=== PATIENT | male | born 1935 | race Caucasian/White ===

== ENCOUNTER → 2018-01-05 08:09 | Outpatient (CLI) | payer MEDICARE, OTHER, SELFPAY ==
[2018-01-05 10:26] LABS: AST(SGOT) 23 U/L (15-37); Alanine Aminotransfer ALT/SGPT 29 U/L (16-61); Albumin, Serum 3.7 g/dL (3.2-5.0); Alkaline Phosphatase 40 U/L (45-117); Bilirubin, Direct 0.13 mg/dL (0.00-0.30); Cholesterol 150 mg/dL (200); Globulin 3.8 g/dL (2.2-4.2); High Density Lipoprotein 47 mg/dL; Protein, Total 7.5 g/dL (6.4-8.2); Triglycerides 276 mg/dL; Very Low Density Lipoprotein 55 mg/dL (5-40)
== END ==
PROVIDERS: Family Provider Family Medicine; PCP Family Medicine; Visit Provider Physician Assistant Medical
DX: E78.5 Hyperlipidemia, unspecified (principal); Z79.899 Other long term (current) drug therapy
CPT/HCPCS: 36415; 80061; 80076

== ENCOUNTER → 2018-03-24 08:00 | Outpatient (CLI) | payer MEDICARE, OTHER, SELFPAY ==
[2018-03-24 09:55] LABS: AST(SGOT) 25 U/L (15-37); Alanine Aminotransfer ALT/SGPT 32 U/L (16-61); Albumin, Serum 3.8 g/dL (3.2-5.0); Alkaline Phosphatase 43 U/L (45-117); Bilirubin, Direct 0.15 mg/dL (0.00-0.30); Cholesterol 147 mg/dL (200); Globulin 3.9 g/dL (2.2-4.2); High Density Lipoprotein 43 mg/dL; Protein, Total 7.7 g/dL (6.4-8.2); Triglycerides 275 mg/dL; Very Low Density Lipoprotein 55 mg/dL (5-40)
== END ==
PROVIDERS: Physician Assistant Medical; Family Provider Family Medicine; PCP Family Medicine; Visit Provider Internal Medicine Cardiovascular Disease
DX: E78.5 Hyperlipidemia, unspecified (principal)
CPT/HCPCS: 36415; 80061; 80076

== ENCOUNTER → 2018-03-30 08:17 | Outpatient (CLI) | payer MEDICARE, OTHER, SELFPAY ==
--- NOTE | 2018-03-30 08:19 | RAD_ITS ---
PROCEDURE: Fluoroscopic guided Hip Injection DATE: March 30, 2018. INDICATION: Male, 82 years old. Chronic right hip pain. PHYSICIAN: Stanley Erickson M.D. MEDICATIONS: 40 mg of Kenalog and 4 cc of 1% lidocaine. 2% Lidocaine administered subcutaneously for local anesthesia. ACCESS SITE: Right hip. NEEDLE: 22-gauge spinal needle. FLUOROSCOPY TIME (if supplied): (0:33) minutes/seconds FINDINGS: The risks, benefits, and alternatives to the procedure were explained to the patient. The specific risks of bleeding, infection, and neurovascular injury were detailed and accepted. Witnessed informed consent was obtained. A 22-gauge spinal needle was positioned under radiographic fluoroscopic localization. Approximately 2 cc of Isovue-300 instilled for localization purposes. Medication was then injected. The patient tolerated the procedure well without any immediate complications. The patient was placed supine with head elevated and returned to the floor in stable condition. RAD/Inj/Asp [place] Jt Should/Hip/Knee IMPRESSION: 1. Successful fluoroscopic guided hip injection. Electronically Signed: Stanley Erickson MD at 9:50 EDT Tel [phone], Service support ,
== END ==
PROVIDERS: Family Provider Family Medicine; PCP Family Medicine; Visit Provider Orthopaedic Surgery
DX: M16.10 Unilateral primary osteoarthritis, unspecified hip (principal)
CPT/HCPCS: 20610; 77002; Q9967

== ENCOUNTER → 2018-09-20 08:07 | Outpatient (CLI) | payer MEDICARE, OTHER, SELFPAY ==
[2018-03-26 10:09] VITALS: BMI 34.1
[2018-09-20 09:34] LABS: AST(SGOT) 22 U/L (15-37); Alanine Aminotransfer ALT/SGPT 28 U/L (16-61); Albumin, Serum 3.5 g/dL (3.2-5.0); Alkaline Phosphatase 45 U/L (45-117); Bilirubin, Direct 0.13 mg/dL (0.00-0.30); Cholesterol 145 mg/dL (200); Globulin 3.8 g/dL (2.2-4.2); High Density Lipoprotein 44 mg/dL; Protein, Total 7.3 g/dL (6.4-8.2); Triglycerides 258 mg/dL; Very Low Density Lipoprotein 52 mg/dL (5-40)
--- OUTSIDE RECORDS SUMMARY | 2018-12-22 19:01 | XMS RPT_ITS ---
:1935 Author Organization [place] Support Name Relationship Address Phone JACKSON RAMSES Unavailable [address] + [place] [address] KALANI TUCKER Un[address] + [place] [address] S Unavailable Unavailable Unavailable RAMSES PAZ Unavailable [address] + [place] [address] KALANI TUCKER Un[address] + [place] [address] S Unavailable Unavailable Unavailable RAMSES PAZ Unavailable [address] + [place] [address] R Unavailable Unavailable Unavailable R Unavailable Unavailable Unavailable RAMSES PAZ Unavailable [address] + [place] [address] R Unavailable Unavailable Unavailable R Unavailable Unavailable Unavailable RAMSES PAZ Unavailable [address] + [place] [address] GARRETT BASHIR Unavailable [address] + [place] [address] R Unavailable Unavailable Unavailable RAMSES PAZ Unavailable [address] + [place] [address] GARRETT BASHIR Unavailable [address] + [place] [address] R Unavailable Unavailable Unavailable RAMSES PAZ Unavailable [address] + [place] [address] GARRETT BASHIR Unavailable [address] + [place] [address] R Unavailable Unavailable Unavailable RAMSES PAZ Unavailable [address] + [place] [address] GARRETT BASHIR Unavailable [address] + [place] [address] R Unavailable Unavailable Unavailable Care Team Providers Name Role Phone Evan PEARSON (PA-C) Attending Unavailable PEARSON, Evan WRIGHT (PA-C) Referring Unavailable PEARSON, Evan WRIGHT (PA-C) Attending Unavailable PEARSON, Evan WRIGHT (PA-C) Referring Unavailable PEARSON, Evan WRIGHT (PA-C) Attending Unavailable PEARSON, Evan WRIGHT (PA-C) Referring Unavailable PEARSON, Evan WRIGHT (PA-C) Referring Unavailable DELON, JUANCARLOS Attending Unavailable PEARSON, Evan WRIGHT (PA-C) Referring Unavailable PEARSON, Evan WRIGHT (PA-C) Attending Unavailable PEARSON, Evan WRIGHT (PA-C) Referring Unavailable KALEE GILES (PT) Attending Unavailable PEARSON, Evan WRIGHT (PA-C) Referring Unavailable DELON, JUANCARLOS Attending Unavailable PEARSON, Evan WRIGHT (PA-C) Referring Unavailable PEARSON, Evan WRIGHT (PA-C) Attending Unavailable CEBUL III, ABDOULAYE A Attending Unavailable HEATHER ZABALA (PT) Attending Unavailable CEBUL III, ABDOULAYE A Referring Unavailable CEBUL III, ABDOULAYE A Attending Unavailable CEBUL III, ABDOULAYE A Referring Unavailable CEBUL III, ABDOULAYE A Referring Unavailable JAMILA KENNEDY (EDGE KITTER) Attending Unavailable Gregoria Guerrero Attending Unavailable Gregoria Guerrero Referring Unavailable Cebul III, Abdoulaye Primary Care Unavailable Nadia, [place] Attending Unavailable Cebul III, Abdoulaye Referring Unavailable Cebul III, Abdoulaye Primary Care Unavailable Noel Pompa Attending Unavailable Noel Pompa Referring Unavailable Cebul III, Abdoulaye Primary Care Unavailable Apple Stout Attending Unavailable Apple Stout Attending Unavailable Nadia, Jadon Attending Unavailable Naida, Jadon Referring Unavailable Cebul III, Abdoulaye Primary Care Unavailable Gregoria Guerrero Attending Unavailable Gregoria Guerrero Referring Unavailable Cebul III, Abdoulaye Primary Care Unavailable Nilam Patricio Attending Unavailable Cebul III, Abdoulaye Referring Unavailable PROBLEMS PROBLEMS DATE TYPE CONDITION / CODE ATTENDING STATUS SOURCE 09/24/2018 Active Diarrhea, NA Active [place] unspecified / Clinic Main R19.7(ICD-10) [place] Repository 03/30/2018 Unknown 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 - Unilateral Noel Pompa Active [facility] primary [facility] osteoarthritis, Hospital unspecified hip / Repository M16.10(ICD-10) 03/26/2018 Unknown Z95.1 - Presence of Nadia, [place] Active [place] aortocoronary bypass Community graft / Hospital Z95.1(ICD-10) Repository 03/26/2018 Unknown I10 - Essential Nadia, [place] Active [facility] (primary) Community hypertension / Hospital I10(ICD-10) Repository 03/26/2018 Unknown I25.5 - Ischemic Nadia, [place] Active [facility] cardiomyopathy / Community I25.5(ICD-10) Hospital Repository 03/26/2018 Unknown E78.5 - Nadia, Jadon Active [facility] Hyperlipidemia, Community unspecified / Hospital E78.5(ICD-10) Repository 12/04/2017 Active Unknown / JUANCARLOS ROMAN Active [place] UNK(Unknown) Clinic Main [place] Repository 12/02/2017 Active Pain in right hip / NA Active [place] M25.551(ICD-10) Clinic Main [place] Repository 11/10/2017 Active Pain in right knee / NA Active [place] M25.561(ICD-10) Clinic Main [place] Repository 11/06/2017 Active Pain in right thigh NA Active [place] / M79.651(ICD-10) Clinic Main [place] Repository PROCEDURES PROCEDURES No Procedure Records FoundRESULTS RESULTS PROGRESS Observed: 10/18/2018 Status: COMPLETED Source: [place] 1:07 PM [facility] REPOSITORY HNO ID: [id number] Author: Jamila Olson (Joe) Brent Service: (none) Author Type: Nurse Practitioner Type: Progress Notes Filed: 10/18/2018 5:44 PM Note Text: Patient presents with: Pre-Op Exam: having cataract surgery right eye PRE-OPERATIVE ASSESSMENT ([facility]) Surgeon: Dr. Linda Bernal MD Type of Surgery: Right Cataract Patient Scheduled for Surgery on 10/26/2018. Diagnosis: Right Cataract Patient presents with: Pre-Op Exam: having cataract surgery right eye MEDICATIONS AND ALLERGIES REVIEWED. LATEX ALLERGY: No PATIENT CAN PERFORM THE FOLLOWING: Climb a flight of stairs or walk up a hill (5.50 METs) FUNCTIONAL CLASS ASSIGNMENT: I REVIEW OF SYSTEMS: AREA COORDINATOR: No history of stroke, TIAs, or seizures, or dementia reported., Negative for significant headaches. RESP: Denies dyspnea, chronic cough, asthma, bronchitis, COPD, emphysema, and URI < 2 weeks ago. CARD: Patient denies any dyspnea, recent IN, angina, arrhythmias, or valvular disease,, Denies h/o DVT or PE., + CAD, + HTN and + hyperlipidemia, Follows with Dr. Jadon Zuniga-Air Conditioning Unit Tester. Recent visit within the past month. GI: + H/O Colon Cancer, no radiation. : No history of disease. RENAL: Denies history of renal insufficiency. ENDO: no history of diabetes, no history of thyroid problems, no history of steroid use HEME: patient denies bleeding, bruising easily, no history of anemia and no history of prior transfusion PSYCHIATRIC: denies history of psychiatric illness and denies eating disorders, denies a history of abuse ANESTHESIA COMPLICATIONS: no reported complications Current Outpatient Prescriptions on File Prior to Visit: loratadine (CLARITIN ORAL) Take by mouth as needed. naproxen sodium (ALEVE) 220 mg tablet Take 220 mg by mouth twice daily with meals. aspirin, enteric coated (ASPIRIN, ENTERIC COATED) 81 mg EC tablet Take 81 mg by mouth once daily. spironolactone (ALDACTONE) 25 mg tablet Take 1 tablet by mouth once daily. amLODIPine (NORVASC) 10 mg tablet Take 1 tablet by mouth once daily. lisinopril 40 mg tablet Take 1 tablet by mouth once daily. simvastatin (ZOCOR) 20 mg tablet Take 1 tablet by mouth daily at bedtime. meloxicam (MOBIC) 15 mg tablet Take 1 tablet by mouth once daily. 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 [facility] - see scanned documents - Essential hypertension, benign - Heart attack (HCC) - Hemorrhage of rectum and anus - High degree atrioventricular block 02/10/2015 [facility] - see scanned documents - Hx of coronary artery bypass graft - Other abnormal granulation tissue - Other and unspecified hyperlipidemia - Personal history of colonic polyps Colon polyps - 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 [facility] - see scanned documents - Small bowel obstruction (HCC) 02/10/2015 [facility] - see scanned document PAST SURGICAL HISTORY: See Below PAST SURGICAL HISTORY Procedure Laterality Date - CABG (4) VEIN GRAFTS AND ARTERIAL GRAFT(S) 03/2012 [facility] - COLONOSCOP W/ OR W/O [facility] Colonoscopy 2001,2002,2003,2004, - COLONOSCOP W/ OR W/O [facility] 01-18-16 - COLONOSCOPY ABLATION POLYP 01/19/09 Repeat in [id number] mid transverse/granulation tissue rectal anastomosis - HEART SURGERY HX - INSERT CATH,ART,PERCUT,SHORTTERM 02-01-15 - LAP COLECTMY W/ILEUM/ILEOCOL 02-01-15 - LAP, SURG ENTEROLYSIS 02-01-15 - LAP, SURG MOBIL SPLENIC FL DUR PTL COLECTOMY 02-01-15 - PART REMOVAL COLON W ANASTOMOSIS Hemicolectomy - PICC LINE 02/12/2015 [facility] - see scanned documents - REM LESION NEC,HND,SCAL 1.1-2.0CM 11/07/09 Exc. posterior neck len cyst BP 118/66 (BP Site: Left Arm, BP Position: Sitting, BP Cuff Size: Large Adult) Pulse 80 Temp 36.5 ?C (97.7 ?F) (Tympanic) Resp 18 Ht 161.5 cm (5' 3.58) Wt 93.4 kg (206 lb) BMI 35.83 kg/m? PHYSICAL EXAM: GENERAL: Healthy, alert, no distress, cooperative, Obese, Smiling SKIN: Skin color, texture, turgor normal. No rashes or lesions. HEENT: PERRL, EOMI, and normal dentition JVD: No jugulovenous distention, No carotid bruits, Carotid pulse normal contour, Supple CARDIAC: Normal S1 and S2; no rubs, murmurs, or gallops LUNGS: Lungs clear to auscultation, Good diaphragmatic excursion ABDOMEN: Abdomen soft, non-tender, BS normal, No masses or organomegaly EXTREMITIES: Extremities normal, no deformities, edema, clubbing or skin discoloration. Good capillary refill., No ulcers NEURO: Gait normal. . Sensation grossly intact, Cranial nerves II-XII intact PULSES: 2+ radial, 2+ carotid : not examined/not indicated. EKG: Not indicated -- IMPRESSION: Nilam Tucker Jr. is a 83 year old male. History: There is no known pertinent medical condition which may affect titi-operative course Patient has no clinical predictors of increased perioperative cardiovascular risk. Patient is scheduled for a low-risk procedure. Functional Class: I Thank you for allowing me to participate in this patient's care. Chart note to be forwarded to Dr. Linda Bernal ASSESSMENT/PLAN: 1. Pre-operative exam - ICD9: V72.84, ICD10: Z01.818 This patient is optimally prepared for surgery. Jamila Kennedy MSN SURGICAL SERVICES ASST.ASL INTERPRETER CNOV Observed: 10/18/2018 Status: COMPLETED Source: [place] 1:00 PM [facility] REPOSITORY [facility] NILAM TUCKER JR. ([id number]) 1935 M NFR Date Time Provider Department 10/18/18 1:00 PM JAMILA KENNEDY (EDGE KITTER) FAMPWS During your visit today, we recorded the following information about you: Temperature Pulse Respiration Blood pressure 97.7 degrees 80/minute 18/minute 118/66 Weight Height 93.4 kg 1.615 m ANGLE Parmar SURGICAL SERVICES ASST.ASL INTERPRETER 10/18/2018 5:44 PM Signed Patient presents with: Pre-Op Exam: having cataract surgery right eye PRE-OPERATIVE ASSESSMENT ([facility]) Surgeon: Dr. Linda Bernal MD Type of Surgery: Right Cataract Patient Scheduled for Surgery on 10/26/2018. Diagnosis: Right Cataract Patient presents with: Pre-Op Exam: having cataract surgery right eye MEDICATIONS AND ALLERGIES REVIEWED. LATEX ALLERGY: No PATIENT CAN PERFORM THE FOLLOWING: Climb a flight of stairs or walk up a hill (5.50 METs) FUNCTIONAL CLASS ASSIGNMENT: I REVIEW OF SYSTEMS: AREA COORDINATOR: No history of stroke, TIAs, or seizures, or dementia reported., Negative for significant headaches. RESP: Denies dyspnea, chronic cough, asthma, bronchitis, COPD, emphysema, and URI < 2 weeks ago. CARD: Patient denies any dyspnea, recent IN, angina, arrhythmias, or valvular disease,, Denies h/o DVT or PE., + CAD, + HTN and + hyperlipidemia, Follows with Dr. Jadon Zuniga-Air Conditioning Unit Tester. Recent visit within the past month. GI: + H/O Colon Cancer, no radiation. : No history of disease. RENAL: Denies history of renal insufficiency. ENDO: no history of diabetes, no history of thyroid problems, no history of steroid use HEME: patient denies bleeding, bruising easily, no history of anemia and no history of prior transfusion PSYCHIATRIC: denies history of psychiatric illness and denies eating disorders, denies a history of abuse ANESTHESIA COMPLICATIONS: no reported complications Current Outpatient Prescriptions on File Prior to Visit: loratadine (CLARITIN ORAL) Take by mouth as needed. naproxen sodium (ALEVE) 220 mg tablet Take 220 mg by mouth twice daily with meals. aspirin, enteric coated (ASPIRIN, ENTERIC COATED) 81 mg EC tablet Take 81 mg by mouth once daily. spironolactone (ALDACTONE) 25 mg tablet Take 1 tablet by mouth once daily. amLODIPine (NORVASC) 10 mg tablet Take 1 tablet by mouth once daily. lisinopril 40 mg tablet Take 1 tablet by mouth once daily. simvastatin (ZOCOR) 20 mg tablet Take 1 tablet by mouth daily at bedtime. meloxicam (MOBIC) 15 mg tablet Take 1 tablet by mouth once daily. 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 [facility] - see scanned documents - Essential hypertension, benign - Heart attack (HCC) - Hemorrhage of rectum and anus - High degree atrioventricular block 02/10/2015 [facility] - see scanned documents - Hx of coronary artery bypass graft - Other abnormal granulation tissue - Other and unspecified hyperlipidemia - Personal history of colonic polyps Colon polyps - 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 [facility] - see scanned documents - Small bowel obstruction (HCC) 02/10/2015 [facility] - see scanned document PAST SURGICAL HISTORY: See Below PAST SURGICAL HISTORY Procedure Laterality Date - CABG (4) VEIN GRAFTS AND ARTERIAL GRAFT(S) 03/2012 [facility] - COLONOSCOP W/ OR W/O [facility] Colonoscopy 2001,2002,2003,2004, - COLONOSCOP W/ OR W/O [facility] 01-18-16 - COLONOSCOPY ABLATION POLYP 01/19/09 Repeat in [id number] mid transverse/granulation tissue rectal anastomosis - HEART SURGERY HX - INSERT CATH,ART,PERCUT,SHORTTERM 02-01-15 - LAP COLECTMY W/ILEUM/ILEOCOL 02-01-15 - LAP, SURG ENTEROLYSIS 02-01-15 - LAP, SURG MOBIL SPLENIC FL DUR PTL COLECTOMY 02-01-15 - PART REMOVAL COLON W ANASTOMOSIS Hemicolectomy - PICC LINE 02/12/2015 [facility] - see scanned documents - REM LESION NEC,HND,SCAL 1.1-2.0CM 11/07/09 Exc. posterior neck len cyst BP 118/66 (BP Site: Left Arm, BP Position: Sitting, BP Cuff Size: Large Adult) Pulse 80 Temp 36.5 ?C (97.7 ?F) (Tympanic) Resp 18 Ht 161.5 cm (5' 3.58) Wt 93.4 kg (206 lb) BMI 35.83 kg/m? PHYSICAL EXAM: GENERAL: Healthy, alert, no distress, cooperative, Obese, Smiling SKIN: Skin color, texture, turgor normal. No rashes or lesions. HEENT: PERRL, EOMI, and normal dentition JVD: No jugulovenous distention, No carotid bruits, Carotid pulse normal contour, Supple CARDIAC: Normal S1 and S2; no rubs, murmurs, or gallops LUNGS: Lungs clear to auscultation, Good diaphragmatic excursion ABDOMEN: Abdomen soft, non-tender, BS normal, No masses or organomegaly EXTREMITIES: Extremities normal, no deformities, edema, clubbing or skin discoloration. Good capillary refill., No ulcers NEURO: Gait normal. . Sensation grossly intact, Cranial nerves II-XII intact PULSES: 2+ radial, 2+ carotid : not examined/not indicated. EKG: Not indicated IMPRESSION: Nilam Tucker Jr. is a 83 year old male. History: There is no known pertinent medical condition which may affect titi-operative course Patient has no clinical predictors of increased perioperative cardiovascular risk. Patient is scheduled for a low-risk procedure. Functional Class: I Thank you for allowing me to participate in this patient's care. Chart note to be forwarded to Dr. Linda Bernal ASSESSMENT/PLAN: 1. Pre-operative exam - ICD9: V72.84, ICD10: Z01.818 This patient is optimally prepared for surgery. Jamila Kennedy, MSN SURGICAL SERVICES ASST.ASL INTERPRETER Referring Provider: SELF [200] Allergies As of Date: 10/18/2018 Noted Allergy Reaction AMOXICILLIN 03/13/2006 Comments: hives HYDROCHLOROTHIAZIDE 12/01/2014 14 - Other: See Comments Comments: hypokalemia OMEPRAZOLE 06/30/2012 4 - Hives PENICILLINS 03/13/2006 Comments: unknown SULFA (SULFONAMIDE ANTIBIOTICS) 03/13/2006 Comments: unknown ZETIA (EZETIMIBE) 03/13/2006 Comments: muscle pain Date Reviewed: 10/18/2018 Reviewed by: Shirley Barr LPN - Fully Assessed Reason for Visit: Pre-Op Exam [87] Cmt: having cataract surgery right eye Primary Visit Diagnosis:Pre-operative exam [Z01.818] Order(s):metoprolol tartrate, short acting, (LOPRESSOR) 100 mg tabletTake 0.5 tablets by mouth twice daily.Disp: 60 tabletRfl: 5 Prescriptions as of 10/18/2018 Sig: METOPROLOL TARTRATE 100 MG TA* Take 0.5 tablets by mouth twi* CLARITIN ORAL Take by mouth as needed. NAPROXEN SODIUM 220 MG TABLET Take 220 mg by mouth twice da* ASPIRIN 81 MG TABLET,DELAYED * Take 81 mg by mouth once celeste* SPIRONOLACTONE 25 MG TABLET Take 1 tablet by mouth once d* AMLODIPINE 10 MG TABLET Take 1 tablet by mouth once d* LISINOPRIL 40 MG TABLET Take 1 tablet by mouth once d* SIMVASTATIN 20 MG TABLET Take 1 tablet by mouth daily * MELOXICAM 15 MG TABLET Take 1 tablet by mouth once d* Problem List As Of Date 10/18/2018 Noted Resolved HYPOPOTASSEMIA [E87.6] INVALID FOR* BENIGN HYPERTENSION [I10] Thoracic or lumbosacral neuritis or radiculitis*INVALID FOR*08/12/2018 Variants of migraine, not elsewhere classified,*INVALID FOR*08/12/2018 SPINAL STENOSIS-LUMBAR [M48.061] INVALID FOR* RECTAL BLEEDING (MELENA-578.1) [K62.5] INVALID FOR*08/12/2018 Sebaceous cyst [L72.3] INVALID FOR*08/12/2018 ASHD (arteriosclerotic heart disease) [I25.10] INVALID FOR* BPH associated with nocturia [N40.1, R35.1] INVALID FOR* History of adenomatous polyp of colon [Z86.010] INVALID FOR* Hypokalemia [E87.6] INVALID FOR*12/01/2014 Colon cancer (HCC) [C18.9] INVALID FOR* Hemorrhoids, internal, with bleeding [K64.8] INVALID FOR*08/12/2018 Adductor tendonitis [M65.80] INVALID FOR*08/12/2018 Right leg pain [M79.604] INVALID FOR*08/12/2018 Piriformis syndrome, left [G57.02] INVALID FOR* Left sided sciatica [M54.32] INVALID FOR* Cardiomyopathy, ischemic [I25.5] INVALID FOR* Prescriptions ordered this encounter Disp Refills Start End METOPROLOL TARTRATE 100 MG TABLET 60 t* 5 10/18/2018 Class: Med Update Route: ORAL Sig: Take 0.5 tablets by mouth twice daily. Medications Discontinued During This Encounter loperamide (IMODIUM A-D) 2 mg cap(s) 09/02/2018 10/18/2018 Class: OTC Route: ORAL Sig: Take 1 capsule by mouth twice daily as needed for Diarrhea. Disc: Discontinued by Patient gabapentin (NEURONTIN) 100 mg capsule 90 c* 1 08/12/2018 10/18/2018 Route: ORAL Sig: Take 1 capsule by mouth three times daily as needed (nerve pain) for up to 30 days. Disc: Course of therapy completed metoprolol tartrate, short acting, (* 60 t* 5 02/28/2014 10/18/2018 Route: ORAL Sig: Take 1 tablet by mouth twice daily. Disc: Adjust Sig - Block E-Cancel Encounter Status:Closed by JAMILA KENNEDY ASL INTERPRETER on 10/18/18 PROGRESS Observed: 10/02/2018 Status: COMPLETED Source: [place] 3:35 PM [facility] REPOSITORY HNO ID: [id number] Author: Abdoulaye Jain III Service: (none) Author Type: Physician Type: Progress Notes Filed: 10/02/2018 3:35 PM Note Text: Good news-there is no evidence of blood in the stool sample. May recheck in 1 year. Abdoulaye Jain III MD FECAL OCCULT BLD Collected: 09/24/2018 Status: F Source: [facility] 9:00 AM [facility] REPOSITORY TYPE CODE TESTS RESULT OUT OF REFERENCE UNITS RANGE LAB IFO Negative Immuno Negative FOB Result Comment: This test was developed and its performance characteristics determined by [facility]'s [place] [place] ([facility]). It has not been cleared or approved by the FDA. -[facility] is regulated under CLIA as qualified to perform high-complexity testing. This test is used for clinical purposes. It should not be regarded as investigational or for research. Performed By: #### IFOBT #### [facility] [address] [address] LIVER PROFILE Collected: 09/20/2018 Status: F Source: [place] 8:19 AM [facility] REPOSITORY TYPE CODE TESTS RESULT OUT OF RANGE REFERENCE UNITS LAB L501.1500 6.4-8.2 g/dL Normal T PROT 7.3 LAB L501.1800 3.2-5.0 g/dL Normal ALB 3.5 LAB L501.1950 2.2-4.2 g/dL Normal GLOB 3.8 LAB L501.4100 15-37 U/L Normal AST 22 LAB L501.4305 45-117 U/L Normal ALK P 45 LAB L501.4405 16-61 U/L Normal ALT 28 LAB L501.4600 0.20-1.00 mg/dL Normal T BILI 0.50 LAB L501.4700 0.00-0.30 mg/dL Normal D BILI 0.13 Performed By: #### L500.3400, L500.4100 #### [place] [facility] [address] [place], [address] LIPID PROFILE Collected: 09/20/2018 Status: F Source: [place] 8:19 AM [facility] REPOSITORY TYPE CODE TESTS RESULT OUT OF RANGE REFERENCE UNITS LAB L501.4900 200 mg/dL Normal CHOL 145 Result Comment: <200 mg/dL Desirable 200-240 mg/dL Borderline >240 mg/dL High Risk LAB L501.5000 mg/dL High TRIG 258 Result Comment: The drugs N-Acetylcysteine and Metamizole may falsely depress this assay. Serum Triglycerides Reference Interval Normal <150 mg/dL Borderline high 150 - 199 mg/dL High 200 - 499 mg/dL Very High > or = 500 mg/dL LAB L501.6400 mg/dL Normal HDL 44 Result Comment: The drugs N-Acetylcysteine and Metamizole may falsely depress this assay. Reference Range HDL <40 mg/dL Low HDL Cholesterol HDL >or= 60 mg/dL High HDL Cholesterol LAB L501.6500 0-130 mg/dL Normal LDL 49 LAB L501.6600 5-40 mg/dL High VLDL 52 Performed By: #### L500.3400, L500.4100 #### [facility] [address] [place], [address] PROGRESS Observed: 09/02/2018 Status: COMPLETED Source: [place] 3:08 PM [facility] REPOSITORY HNO ID: [id number] Author: Abdoulaye Jain III Service: (none) Author Type: Physician Type: Progress Notes Filed: 09/02/2018 6:43 PM Note Text: SUBJECTIVE: This is a 83 year old male that is here today for f/u of low back pain with L sciatica. The intense pain resolved 7 days ago. Now has low intensity pain LLE. Started PT 09/01. Able to walk back to office today w/o pain. 2. for past mo. he has had liquid diarrhea every day. No fever, chills, change in diet or appetite. No sick exposure. 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 [facility] - see scanned documents - Essential hypertension, benign - Heart attack (HCC) - Hemorrhage of rectum and anus - High degree atrioventricular block 02/10/2015 [facility] - see scanned documents - Hx of coronary artery bypass graft - Other abnormal granulation tissue - Other and unspecified hyperlipidemia - Personal history of colonic polyps Colon polyps - 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 loratadine (CLARITIN ORAL) Take by mouth as needed. meloxicam (MOBIC) 15 mg tablet Take 1 tablet by mouth once daily. naproxen sodium (ALEVE) 220 mg tablet Take 220 mg by mouth twice daily with meals. aspirin, enteric coated (ASPIRIN, ENTERIC COATED) 81 mg EC tablet Take 81 mg by mouth once daily. spironolactone (ALDACTONE) 25 mg tablet Take 1 tablet by mouth once daily. metoprolol tartrate, short acting, (LOPRESSOR) 100 mg tablet Take 1 tablet by mouth twice daily. amLODIPine (NORVASC) 10 mg tablet Take 1 tablet by mouth once daily. lisinopril 40 mg tablet Take 1 tablet by mouth once daily. simvastatin (ZOCOR) 20 mg tablet Take 1 tablet by mouth daily at bedtime. No current facility-administered medications on file prior to visit. FAMILY HISTORY Problem Relation Age of Onset - Coronary Artery Disease Father with [place] - Prostate Cancer Brother - Coronary Artery Disease Brother - Heart Sister heart valve replacement - Thyroid Sister - Thyroid Sister - Thyroid Sister - None Sister - None Sister - None Sister Social History Substance Use Topics - Smoking status: Never Smoker - Smokeless tobacco: Never Used - Alcohol use No BP 122/66 Pulse 75 Resp 16 Ht 163.8 cm (5' 4.5) Wt 93.9 kg (207 lb) BMI 34.98 kg/m? . OBJECTIVE: APPEARANCE Well appearing, alert, in no acute distress, well-hydrated, well nourished. and able to stand straight w/o pain. BACK: hyperextension w/o pain. L piriformis stretch does not cause pain. L SLR neg. ASSESSMENT: L sciatica with L piriformis syndrome--much improved diarrhea following partial colectomy hx of colon cancer transverse colon PLAN: continue home exercise take the gabapentin 100mg three times/day as needed for pain same other medications return to office as needed stool test for colon cancer screening immodium twice/day as needed for loose stool FCO Atkinson MD, III MD CNOV Observed: 09/02/2018 Status: COMPLETED Source: [place] 2:40 PM [facility] REPOSITORY Office Visit (FAMPWS) NILAM TUCKER JR. ([id number]) 1935 M NFR Date Time Provider Department 09/02/18 2:40 PM ABDOULAYE JAIN IIIWS During your visit today, we recorded the following information about you: Pulse Respiration Blood pressure Weight 75/minute 16/minute 122/66 93.9 kg Height 1.638 m Abdoulaye Jian III MD 09/02/2018 6:43 PM Signed SUBJECTIVE: This is a 83 year old male that is here today for f/u of low back pain with L sciatica. The intense pain resolved 7 days ago. Now has low intensity pain LLE. Started PT 09/01. Able to walk back to office today w/o pain. 2. for past mo. he has had liquid diarrhea every day. No fever, chills, change in diet or appetite. No sick exposure. 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 [facility] - see scanned documents - Essential hypertension, benign - Heart attack (HCC) - Hemorrhage of rectum and anus - High degree atrioventricular block 02/10/2015 [facility] - see scanned documents - Hx of coronary artery bypass graft - Other abnormal granulation tissue - Other and unspecified hyperlipidemia - Personal history of colonic polyps Colon polyps - 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 loratadine (CLARITIN ORAL) Take by mouth as needed. meloxicam (MOBIC) 15 mg tablet Take 1 tablet by mouth once daily. naproxen sodium (ALEVE) 220 mg tablet Take 220 mg by mouth twice daily with meals. aspirin, enteric coated (ASPIRIN, ENTERIC COATED) 81 mg EC tablet Take 81 mg by mouth once daily. spironolactone (ALDACTONE) 25 mg tablet Take 1 tablet by mouth once daily. metoprolol tartrate, short acting, (LOPRESSOR) 100 mg tablet Take 1 tablet by mouth twice daily. amLODIPine (NORVASC) 10 mg tablet Take 1 tablet by mouth once daily. lisinopril 40 mg tablet Take 1 tablet by mouth once daily. simvastatin (ZOCOR) 20 mg tablet Take 1 tablet by mouth daily at bedtime. No current facility-administered medications on file prior to visit. FAMILY HISTORY Problem Relation Age of Onset - Coronary Artery Disease Father with [place] - Prostate Cancer Brother - Coronary Artery Disease Brother - Heart Sister heart valve replacement - Thyroid Sister - Thyroid Sister - Thyroid Sister - None Sister - None Sister - None Sister Social History Substance Use Topics - Smoking status: Never Smoker - Smokeless tobacco: Never Used - Alcohol use No BP 122/66 Pulse 75 Resp 16 Ht 163.8 cm (5' 4.5) Wt 93.9 kg (207 lb) BMI 34.98 kg/m? . OBJECTIVE: APPEARANCE Well appearing, alert, in no acute distress, well- hydrated, well nourished. and able to stand straight w/o pain. BACK: hyperextension w/o pain. L piriformis stretch does not cause pain. L SLR neg. ASSESSMENT: L sciatica with L piriformis syndrome--much improved diarrhea following partial colectomy hx of colon cancer transverse colon PLAN: continue home exercise take the gabapentin 100mg three times/day as needed for pain same other medications return to office as needed stool test for colon cancer screening immodium twice/day as needed for loose stool FCO Atkinson MD, III MD Frank A Cebul, III MD 09/02/2018 3:23 PM Signed PLAN: continue home exercise take the gabapentin 100mg three times/day as needed for pain same other medications return to office as needed stool test for colon cancer screening immodium twice/day as needed for loose stool Abdoulaye Jain III MD Referring Provider: ABDOULYAE JAIN III [[id number]] Allergies As of Date: 09/02/2018 Noted Allergy Reaction AMOXICILLIN 03/13/2006 Comments: hives HYDROCHLOROTHIAZIDE 12/01/2014 14 - Other: See Comments Comments: hypokalemia OMEPRAZOLE 06/30/2012 4 - Hives PENICILLINS 03/13/2006 Comments: unknown SULFA (SULFONAMIDE ANTIBIOTICS) 03/13/2006 Comments: unknown ZETIA (EZETIMIBE) 03/13/2006 Comments: muscle pain Date Reviewed: 09/02/2018 Reviewed by: Lynn (Application Coordinator) KRISTA Parkinson - Fully Assessed Reason for Visit: 3 week follow up [Other] Cmt: Sciatica-doing much better Primary Visit Diagnosis:Piriformis syndrome, left [G57.02] Other Visit Diagnoses:Left sided sciatica [M54.32] Diarrhea, unspecified type [R19.7] Malignant neoplasm of transverse colon (HCC) [C18.4] Order(s):loperamide (IMODIUM A-D) 2 mg cap(s)Take 1 capsule by mouth twice daily as needed for Diarrhea.Disp: Rfl: FECAL OCCULT BLOOD TEST [SQIFOBT] Order #: [id number] FUTURE Prescriptions as of 09/02/2018 Sig: GABAPENTIN 100 MG CAPSULE Take 1 capsule by mouth three* CLARITIN ORAL Take by mouth as needed. MELOXICAM 15 MG TABLET Take 1 tablet by mouth once d* NAPROXEN SODIUM 220 MG TABLET Take 220 mg by mouth twice da* ASPIRIN 81 MG TABLET,DELAYED * Take 81 mg by mouth once celeste* SPIRONOLACTONE 25 MG TABLET Take 1 tablet by mouth once d* METOPROLOL TARTRATE 100 MG TA* Take 1 tablet by mouth twice * AMLODIPINE 10 MG TABLET Take 1 tablet by mouth once d* LISINOPRIL 40 MG TABLET Take 1 tablet by mouth once d* SIMVASTATIN 20 MG TABLET Take 1 tablet by mouth daily * LOPERAMIDE 2 MG CAPSULE Take 1 capsule by mouth twice* Problem List As Of Date 09/02/2018 Noted Resolved HYPOPOTASSEMIA [E87.6] INVALID FOR* BENIGN HYPERTENSION [I10] Thoracic or lumbosacral neuritis or radiculitis*INVALID FOR*08/12/2018 Variants of migraine, not elsewhere classified,*INVALID FOR*08/12/2018 SPINAL STENOSIS-LUMBAR [M48.061] INVALID FOR* RECTAL BLEEDING (MELENA-578.1) [K62.5] INVALID FOR*08/12/2018 Sebaceous cyst [L72.3] INVALID FOR*08/12/2018 ASHD (arteriosclerotic heart disease) [I25.10] INVALID FOR* BPH associated with nocturia [N40.1, R35.1] INVALID FOR* History of adenomatous polyp of colon [Z86.010] INVALID FOR* Hypokalemia [E87.6] INVALID FOR*12/01/2014 Colon cancer (HCC) [C18.9] INVALID FOR* Hemorrhoids, internal, with bleeding [K64.8] INVALID FOR*08/12/2018 Adductor tendonitis [M65.80] INVALID FOR*08/12/2018 Right leg pain [M79.604] INVALID FOR*08/12/2018 Piriformis syndrome, left [G57.02] INVALID FOR* Left sided sciatica [M54.32] INVALID FOR* Cardiomyopathy, ischemic [I25.5] INVALID FOR* Other instructions from your clinician: PLAN: continue home exercise take the gabapentin 100mg three times/day as needed for pain same other medications return to office as needed stool test for colon cancer screening immodium twice/day as needed for loose stool Abdoulaye Demarco Jain III MD Prescriptions ordered this encounter Disp Refills Start End LOPERAMIDE 2 MG CAPSULE 09/02/2018 Class: OTC Route: ORAL Sig: Take 1 capsule by mouth twice daily as needed for Diarrhea. Encounter Status:Closed by ABDOULAYE JAIN III, MD on 09/02/18 PROGRESS Observed: 09/02/2018 Status: COMPLETED Source: [place] 2:17 PM [facility] REPOSITORY HNO ID: [id number] Author: Heather (Pt) Sagrario Service: (none) Author Type: Physical Therapist Type: Progress Notes Filed: 09/02/2018 2:29 PM Note Text: Episode Visit Count: 1 Therapist That Will Oversee The Plan Of Care: Heather Zabala PT Start of Care Date: 09/01/18 Onset Date: 08/05/18 Plan of Care Certification Date: 09/01/18 Patient Identified by Name and Date of : Yes REHABILITATION AND SPORTS THERAPY PHYSICAL THERAPY EVALUATION PLAN OF CARE: Assessment: Nilam Taojase Langley presents with the diagnosis of L sided sciatica and L piriformis syndrome. He presents with impairments of pain that was going down his left leg from his low back but has reduced since performing exercises (L single knee to chest and L piriformis stretch) given to him by Dr. Jain. Patient wasn't sure he was going to come to today's PT evaluation. He was glad that he came as he learned a few other flexion based exercises he could perform. He knows he is in need of a potential R hip replacement due to limited flexion and IR but is not sure when. Patient being discharged from PT as he knows how to manage his L sided sx. Classification Low Back Pain Subgroup Classification: Specific exercise subgroup: recommended visits 8. Specific Exercies Subgroup Classification based on: directional preference Prognosis: Good Good due to: current objective clinical presentation;acuteness of injury;good support system/ coping skills;positive past response to therapy Goals for Episode of Care: created on 09/01/18 through 09/09/18 Patient will verbalize understanding of flexion based exercises to help manage his L sided leg sx. --MET G CODE REPORTING Based on clinical assessment and the score on the AM-PAC Scale Score Assessment Tool, the G code and corresponding severity modifiers are documented below. Evaluation: 09/01/2018 Current Status: Mobility: Walking and Moving Around: G8978 20-39% impaired Goal Status: Mobility: Walking and Moving Around: G8979 20-39% impaired Discharge: Mobility: Walking and Moving Around: G8980 20-39% impaired Planned Interventions, Frequency, and Duration: Current Frequency: Discontinue Therapy Services PLAN FOR NEXT VISIT: Patient to continue with his HEP. Patient demonstrates good understanding of plan of care and treatment. The above goals and plan of care were discussed and agreed upon by patient/family. SUBJECTIVE: Nilam Tucker Jr. is a 83 year old male seen today for L leg pain due to sciatica. Patient was given single knee to chest and a pirifiromis stretch that has taken his sx away. Sometimes gets a prickly feeling from knee to foot sometimes when walks. Prior to doing exercises he could get sx in L leg when standing, walking, or sitting. R hip needs to be replaced. Patient stated he almost did not come today because his low back and leg are doing so well. Patient Goals: To help the L leg Functional Limitations: none Intake Information: Prescription present Pain Score: (not rated. 0/10 L leg pain) Pain Location: Hip - Right Description: Stiffness Frequency: Continuous Post Treatment Pain Score: No Change OBJECTIVE MEASURES WITH LEVEL OF FUNCTION: Lumbar Spine AROM Lumbar Flexion: Minimal limitation Lumbar Extension: Moderate limitation Lumbar R Side-Bend: Normal Lumbar L Side-Bend: Normal Lumbar R Rotation: Normal Lumbar L Rotation: Normal LE AROM R Hip Flexion: 90 Degrees (pain) R Hip Internal Rotation: 0 Degrees R Hip External Rotation: 30 Degrees L Hip Flexion: 110 Degrees L Hip Internal Rotation: 10 Degrees L Hip External Rotation: 40 Degrees LE Flexibility Flexibility: Straight Leg Raise;Hamstring Flexibility R Hamstring Flexibility: 70 L Hamstring Flexibility: 67 LE Strength R LE Strength: all other leg strength 5/5 L LE Strength: all other leg strength 5/5 R Hip Flexion (L2): 4/5 (pain) L Hip Flexion (L2): 5/5 Special Tests - Hip and Spine Hip and Spine Special Tests: SLR Test SLR Test: Left Negative;Right Negative (Pain in R groin) Education: Education Learning Preferences: Demonstration;Explanation;Performance;Printed Materials Barriers: None Learning/educational needs: Home exercise program;Plan of Care Education Provided: Yes, see treatment interventions for education provided Education Provided To: Patient Education Mode/Type: Demonstration;Literature/Printed Materials;Explanation/Discussion Response to Education/Teach Back: States/Identifies TREATMENT: Evaluation Therapeutic Exercise: 1: Left single knee to chest 10 sec, 6x 2: Left pirformis 10 sec, holds 3x 3: *Mini curl ups x10 with fingers interacted behind head 4: *Supine HS stretch and seated HS stretch 15 sec, 3x each (pt felt both strethches were the same) 5: *Seated lumbar flexion 10 sec holds, 3x 6: *Lacrosse ball massage to L piriformis x2 minutes Skilled Intervention: Patient was educated in proper exercise technique and purpose for exercises. Reviewed and educated patient on additions/changes for home exercise program as above (*) Skilled judgment was provided in selection of appropriate interventions. Provided written instruction for home exercise program to facilitate proper performance and compliance. Correct performance of therapeutic exercises was facilitated with verbal, visual and tactile cuing. Billing: [facility]: Evaluation - Low Complexity (12432) Therapeutic Exercise (25512): 1:1 time: 25 minutes (2 units: 23-37 mins) Total time: 45 minutes Heather Zabala PT CNTHERAPY Observed: 09/01/2018 Status: COMPLETED Source: [place] 10:45 AM [facility] REPOSITORY OT/PT/Speech Visit (PTWS) NILAM TUCKER JR. ([id number]) 1935 M NFR Date Time Provider Department 09/01/18 10:45 AM HEATHER ZABALA (PT) PTWS Date Time Provider Department Center 09/01/2018 10:45 AM [id number], DIANA (PT)PTWS [facility] Reason for Visit: PT Eval [747] Patient Education [91] PT Discharge [752] Reason For Visit History Recorded Primary Visit Diagnosis:Left sided sciatica [M54.32] Other Visit Diagnosis:Piriformis syndrome, left [G57.02] Allergies As of Date: 09/01/2018 Noted Allergy Reaction AMOXICILLIN 03/13/2006 Comments: hives HYDROCHLOROTHIAZIDE 12/01/2014 14 - Other: See Comments Comments: hypokalemia OMEPRAZOLE 06/30/2012 4 - Hives PENICILLINS 03/13/2006 Comments: unknown SULFA (SULFONAMIDE ANTIBIOTICS) 03/13/2006 Comments: unknown ZETIA (EZETIMIBE) 03/13/2006 Comments: muscle pain Date Reviewed: 08/12/2018 Reviewed by: Lynn ([facility]) KRISTA Parkinson - Fully Assessed Prescriptions as of 09/01/2018 Sig: GABAPENTIN 100 MG CAPSULE Take 1 capsule by mouth three* CLARITIN ORAL Take by mouth as needed. MELOXICAM 15 MG TABLET Take 1 tablet by mouth once d* NAPROXEN SODIUM 220 MG TABLET Take 220 mg by mouth twice da* ASPIRIN 81 MG TABLET,DELAYED * Take 81 mg by mouth once celeste* SPIRONOLACTONE 25 MG TABLET Take 1 tablet by mouth once d* METOPROLOL TARTRATE 100 MG TA* Take 1 tablet by mouth twice * AMLODIPINE 10 MG TABLET Take 1 tablet by mouth once d* LISINOPRIL 40 MG TABLET Take 1 tablet by mouth once d* SIMVASTATIN 20 MG TABLET Take 1 tablet by mouth daily * Progress Notes: Heather Zabala, PT 09/02/2018 2:29 PM Signed Episode Visit Count: 1 Therapist That Will Oversee The Plan Of Care: Heather Zabala PT Start of Care Date: 09/01/18 Onset Date: 08/05/18 Plan of Care Certification Date: 09/01/18 Patient Identified by Name and Date of : Yes REHABILITATION AND SPORTS THERAPY PHYSICAL THERAPY EVALUATION PLAN OF CARE: Assessment: Nilam Tucker Jr. presents with the diagnosis of L sided sciatica and L piriformis syndrome. He presents with impairments of pain that was going down his left leg from his low back but has reduced since performing exercises (L single knee to chest and L piriformis stretch) given to him by Dr. Jain. Patient wasn't sure he was going to come to today's PT evaluation. He was glad that he came as he learned a few other flexion based exercises he could perform. He knows he is in need of a potential R hip replacement due to limited flexion and IR but is not sure when. Patient being discharged from PT as he knows how to manage his L sided sx. Classification Low Back Pain Subgroup Classification: Specific exercise subgroup: recommended visits 8. Specific Exercies Subgroup Classification based on: directional preference Prognosis: Good Good due to: current objective clinical presentation;acuteness of injury;good support system/ coping skills;positive past response to therapy Goals for Episode of Care: created on 09/01/18 through 09/09/18 Patient will verbalize understanding of flexion based exercises to help manage his L sided leg sx. --MET G CODE REPORTING Based on clinical assessment and the score on the AM-PAC Scale Score Assessment Tool, the G code and corresponding severity modifiers are documented below. Evaluation: 09/01/2018 Current Status: Mobility: Walking and Moving Around: G8978 20-39% impaired Goal Status: Mobility: Walking and Moving Around: G8979 20-39% impaired Discharge: Mobility: Walking and Moving Around: G8980 20-39% impaired Planned Interventions, Frequency, and Duration: Current Frequency: Discontinue Therapy Services PLAN FOR NEXT VISIT: Patient to continue with his HEP. Patient demonstrates good understanding of plan of care and treatment. The above goals and plan of care were discussed and agreed upon by patient/family. SUBJECTIVE: Nilam Tucker Jr. is a 83 year old male seen today for L leg pain due to sciatica. Patient was given single knee to chest and a pirifiromis stretch that has taken his sx away. Sometimes gets a prickly feeling from knee to foot sometimes when walks. Prior to doing exercises he could get sx in L leg when standing, walking, or sitting. R hip needs to be replaced. Patient stated he almost did not come today because his low back and leg are doing so well. Patient Goals: To help the L leg Functional Limitations: none Intake Information: Prescription present Pain Score: (not rated. 0/10 L leg pain) Pain Location: Hip - Right Description: Stiffness Frequency: Continuous Post Treatment Pain Score: No Change OBJECTIVE MEASURES WITH LEVEL OF FUNCTION: Lumbar Spine AROM Lumbar Flexion: Minimal limitation Lumbar Extension: Moderate limitation Lumbar R Side-Bend: Normal Lumbar L Side-Bend: Normal Lumbar R Rotation: Normal Lumbar L Rotation: Normal LE AROM R Hip Flexion: 90 Degrees (pain) R Hip Internal Rotation: 0 Degrees R Hip External Rotation: 30 Degrees L Hip Flexion: 110 Degrees L Hip Internal Rotation: 10 Degrees L Hip External Rotation: 40 Degrees LE Flexibility Flexibility: Straight Leg Raise;Hamstring Flexibility R Hamstring Flexibility: 70 L Hamstring Flexibility: 67 LE Strength R LE Strength: all other leg strength 5/5 L LE Strength: all other leg strength 5/5 R Hip Flexion (L2): 4/5 (pain) L Hip Flexion (L2): 5/5 Special Tests - Hip and Spine Hip and Spine Special Tests: SLR Test SLR Test: Left Negative;Right Negative (Pain in R groin) Education: Education Learning Preferences: Demonstration;Explanation;Performance;Printed Materials Barriers: None Learning/educational needs: Home exercise program;Plan of Care Education Provided: Yes, see treatment interventions for education provided Education Provided To: Patient Education Mode/Type: Demonstration;Literature/Printed Materials;Explanation/Discussion Response to Education/Teach Back: States/Identifies TREATMENT: Evaluation Therapeutic Exercise: 1: Left single knee to chest 10 sec, 6x 2: Left pirformis 10 sec, holds 3x 3: *Mini curl ups x10 with fingers interacted behind head 4: *Supine HS stretch and seated HS stretch 15 sec, 3x each (pt felt both strethches were the same) 5: *Seated lumbar flexion 10 sec holds, 3x 6: *Lacrosse ball massage to L piriformis x2 minutes Skilled Intervention: Patient was educated in proper exercise technique and purpose for exercises. Reviewed and educated patient on additions/changes for home exercise program as above (*) Skilled judgment was provided in selection of appropriate interventions. Provided written instruction for home exercise program to facilitate proper performance and compliance. Correct performance of therapeutic exercises was facilitated with verbal, visual and tactile cuing. Billing: [facility]: Evaluation - Low Complexity (48912) Therapeutic Exercise (01598): 1:1 time: 25 minutes (2 units: 23-37 mins) Total time: 45 minutes Heather Zabala PT CNPTOUTREACH Observed: 08/17/2018 Status: COMPLETED Source: [place] 12:00 AM [facility] REPOSITORY Patient Outreach (FAMPST) NILAM TUCKER JR. ([id number]) 1935 M NFR Date Time Provider Department 08/17/18 ABDOULAYE JAIN III During your visit today, we recorded the following information about you: Allergies As of Date: 08/17/2018 Noted Allergy Reaction AMOXICILLIN 03/13/2006 Comments: hives HYDROCHLOROTHIAZIDE 12/01/2014 14 - Other: See Comments Comments: hypokalemia OMEPRAZOLE 06/30/2012 4 - Hives PENICILLINS 03/13/2006 Comments: unknown SULFA (SULFONAMIDE ANTIBIOTICS) 03/13/2006 Comments: unknown ZETIA (EZETIMIBE) 03/13/2006 Comments: muscle pain Date Reviewed: 08/12/2018 Reviewed by: Lynn ([facility]) KRISTA Parkinson - Fully Assessed Visit Diagnosis:Medication management [Z79.899] Order(s):LIPID PANEL BASIC [SQLIPB] Order #: [id number] FUTURE Prescriptions as of 08/17/2018 Sig: AMLODIPINE 10 MG TABLET Take 1 tablet by mouth once d* ASPIRIN 81 MG TABLET,DELAYED * Take 81 mg by mouth once celeste* GABAPENTIN 100 MG CAPSULE Take 1 capsule by mouth three* LISINOPRIL 40 MG TABLET Take 1 tablet by mouth once d* CLARITIN ORAL Take by mouth as needed. MELOXICAM 15 MG TABLET Take 1 tablet by mouth once d* METOPROLOL TARTRATE 100 MG TA* Take 1 tablet by mouth twice * NAPROXEN SODIUM 220 MG TABLET Take 220 mg by mouth twice da* SIMVASTATIN 20 MG TABLET Take 1 tablet by mouth daily * SPIRONOLACTONE 25 MG TABLET Take 1 tablet by mouth once d* Problem List As Of Date 08/17/2018 Noted Resolved HYPOPOTASSEMIA [E87.6] INVALID FOR* BENIGN HYPERTENSION [I10] Thoracic or lumbosacral neuritis or radiculitis*INVALID FOR*08/12/2018 Variants of migraine, not elsewhere classified,*INVALID FOR*08/12/2018 SPINAL STENOSIS-LUMBAR [M48.061] INVALID FOR* RECTAL BLEEDING (MELENA-578.1) [K62.5] INVALID FOR*08/12/2018 Sebaceous cyst [L72.3] INVALID FOR*08/12/2018 ASHD (arteriosclerotic heart disease) [I25.10] INVALID FOR* BPH associated with nocturia [N40.1, R35.1] INVALID FOR* History of adenomatous polyp of colon [Z86.010] INVALID FOR* Hypokalemia [E87.6] INVALID FOR*12/01/2014 Colon cancer (HCC) [C18.9] INVALID FOR* Hemorrhoids, internal, with bleeding [K64.8] INVALID FOR*08/12/2018 Adductor tendonitis [M65.80] INVALID FOR*08/12/2018 Right leg pain [M79.604] INVALID FOR*08/12/2018 Piriformis syndrome, left [G57.02] INVALID FOR* Left sided sciatica [M54.32] INVALID FOR* Cardiomyopathy, ischemic [I25.5] INVALID FOR* Encounter Status:Closed by EPIC, PRODUSER on 09/17/18 PROGRESS Observed: 08/12/2018 Status: COMPLETED Source: [place] 4:53 PM [facility] REPOSITORY O ID: [id number] Author: Abdoulaye Jain III Service: (none) Author Type: Physician Type: Progress Notes Filed: 08/12/2018 6:58 PM Note Text: SUBJECTIVE: This is a 83 year old male that is here today for 1. 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 With further questioning the history became more unclear. It may be that he had some pain in his posterior left leg several weeks previously that may have intermittently resolved. It is not clear that there was an acute injury that caused the symptoms. He denies having pain in the lower back.. Worse with sitting in office chair. walking down [place] to my office caused increase in pain posterior left distal thigh around the posterior left knee. It forced him to stop walking for a period of time before he could resume walking to get to the office. Better in recliner or in bed. Went to (note reviewed). Tx with short weaning of prednisone. [place] 3 doses with some lessening of pain. 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 [facility] - see scanned documents - Essential hypertension, benign - Heart attack (HCC) - Hemorrhage of rectum and anus - High degree atrioventricular block 02/10/2015 [facility] - see scanned documents - Hx of coronary artery bypass graft - Other abnormal granulation tissue - Other and unspecified hyperlipidemia - Personal history of colonic polyps Colon polyps - 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 loratadine (CLARITIN ORAL) Take by mouth as needed. meloxicam (MOBIC) 15 mg tablet Take 1 tablet by mouth once daily. naproxen sodium (ALEVE) 220 mg tablet Take 220 mg by mouth twice daily with meals. aspirin, enteric coated (ASPIRIN, ENTERIC COATED) 81 mg EC tablet Take 81 mg by mouth once daily. spironolactone (ALDACTONE) 25 mg tablet Take 1 tablet by mouth once daily. metoprolol tartrate, short acting, (LOPRESSOR) 100 mg tablet Take 1 tablet by mouth twice daily. amLODIPine (NORVASC) 10 mg tablet Take 1 tablet by mouth once daily. lisinopril 40 mg tablet Take 1 tablet by mouth once daily. simvastatin (ZOCOR) 20 mg tablet Take 1 tablet by mouth daily at bedtime. No current facility-administered medications on file prior to visit. FAMILY HISTORY Problem Relation Age of Onset - Coronary Artery Disease Father with [place] - Prostate Cancer Brother - Coronary Artery Disease Brother - Heart Sister heart valve replacement - Thyroid Sister - Thyroid Sister - Thyroid Sister - None Sister - None Sister - None Sister Social History Substance Use Topics - Smoking status: Never Smoker - Smokeless tobacco: Never Used - Alcohol use No BP 141/69 Pulse 69 Resp 16 Wt 91.2 kg (201 lb) BMI 33.97 kg/m? . OBJECTIVE: APPEARANCE Well appearing, alert, in no acute distress, well-hydrated, well nourished. and stands up straight and able to walk without a limp. BACK: Forward flexion to below the knees does cause some increased pain in post to left thigh. Limited hyperextension of the back does not cause increase in pain. Straight leg raising of the left lower extremity does increase pain felt in the posterior left thigh midsection. EXTREMITIES resisted contraction of the left hamstring does cause some mild discomfort but does not cause the limiting discomfort he felt walking down the hallway. He has good muscle tone of the left thigh and calf muscles. Stretching the left piriformis muscle does give him some temporary partial relief of the pain. Patellar reflexes are equal bilaterally Very limited internal and external rotation of the right hip. Very limited abduction of the right hip ASSESSMENT: Possible left piriformis syndrome with left sciatica PLAN: careful activity knee to chest and knee to opposite (right) shoulder--hold for 10 sec. Repeat 3-4 times/day add gabapentin 100mg daily--gradually increase number of doses/day to max of 3 doses per day Add Aleve 2 tabs twice/day may take hydrocodone sparingly as needed PT evaluation and treatment return to office 3 wks and as needed Abdoulaye Jain III MD PDMP website checked and validated. All prescriptions have been APPROPRIATELY filled. No suspicious activity was identified. 08/12/2018 by FCO Atkinson MD, III MD CNOV Observed: 08/12/2018 Status: COMPLETED Source: [place] 4:00 PM [facility] REPOSITORY Office Visit (FAMPWS) NILAM TUCKER JR. ([id number]) 1935 M NFR Date Time Provider Department 08/12/18 4:00 PM ABDOULAYE JAIN III FAMPWS During your visit today, we recorded the following information about you: Pulse Respiration Blood pressure Weight 69/minute 16/minute 141/69 91.2 kg Abdoulaye Jain III MD 08/12/2018 6:58 PM Signed SUBJECTIVE: This is a 83 year old male that is here today for 1. pain post L buttock radiating to L foot that started 1 wk ago when he stepped high into [employer] and then sat in the [employer] 4 hours. With further questioning the history became more unclear. It may be that he had some pain in his posterior left leg several weeks previously that may have intermittently resolved. It is not clear that there was an acute injury that caused the symptoms. He denies having pain in the lower back.. Worse with sitting in office chair. walking down [place] to my office caused increase in pain posterior left distal thigh around the posterior left knee. It forced him to stop walking for a period of time before he could resume walking to get to the office. Better in recliner or in bed. Went to (note reviewed). Tx with short weaning of prednisone. [place] 3 doses with some lessening of pain. 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 [facility] - see scanned documents - Essential hypertension, benign - Heart attack (HCC) - Hemorrhage of rectum and anus - High degree atrioventricular block 02/10/2015 [facility] - see scanned documents - Hx of coronary artery bypass graft - Other abnormal granulation tissue - Other and unspecified hyperlipidemia - Personal history of colonic polyps Colon polyps - 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 loratadine (CLARITIN ORAL) Take by mouth as needed. meloxicam (MOBIC) 15 mg tablet Take 1 tablet by mouth once daily. naproxen sodium (ALEVE) 220 mg tablet Take 220 mg by mouth twice daily with meals. aspirin, enteric coated (ASPIRIN, ENTERIC COATED) 81 mg EC tablet Take 81 mg by mouth once daily. spironolactone (ALDACTONE) 25 mg tablet Take 1 tablet by mouth once daily. metoprolol tartrate, short acting, (LOPRESSOR) 100 mg tablet Take 1 tablet by mouth twice daily. amLODIPine (NORVASC) 10 mg tablet Take 1 tablet by mouth once daily. lisinopril 40 mg tablet Take 1 tablet by mouth once daily. simvastatin (ZOCOR) 20 mg tablet Take 1 tablet by mouth daily at bedtime. No current facility-administered medications on file prior to visit. FAMILY HISTORY Problem Relation Age of Onset - Coronary Artery Disease Father with [place] - Prostate Cancer Brother - Coronary Artery Disease Brother - Heart Sister heart valve replacement - Thyroid Sister - Thyroid Sister - Thyroid Sister - None Sister - None Sister - None Sister Social History Substance Use Topics - Smoking status: Never Smoker - Smokeless tobacco: Never Used - Alcohol use No BP 141/69 Pulse 69 Resp 16 Wt 91.2 kg (201 lb) BMI 33.97 kg/m? . OBJECTIVE: APPEARANCE Well appearing, alert, in no acute distress, well- hydrated, well nourished. and stands up straight and able to walk without a limp. BACK: Forward flexion to below the knees does cause some increased pain in post to left thigh. Limited hyperextension of the back does not cause increase in pain. Straight leg raising of the left lower extremity does increase pain felt in the posterior left thigh midsection. EXTREMITIES resisted contraction of the left hamstring does cause some mild discomfort but does not cause the limiting discomfort he felt walking down the hallway. He has good muscle tone of the left thigh and calf muscles. Stretching the left piriformis muscle does give him some temporary partial relief of the pain. Patellar reflexes are equal bilaterally Very limited internal and external rotation of the right hip. Very limited abduction of the right hip ASSESSMENT: Possible left piriformis syndrome with left sciatica PLAN: careful activity knee to chest and knee to opposite (right) shoulder--hold for 10 sec. Repeat 3-4 times/day add gabapentin 100mg daily--gradually increase number of doses/day to max of 3 doses per day Add Aleve 2 tabs twice/day may take hydrocodone sparingly as needed PT evaluation and treatment return to office 3 wks and as needed Abdoulaye Jain III MD PDMP website checked and validated. All prescriptions have been APPROPRIATELY filled. No suspicious activity was identified. 08/12/2018 by FCO Atkinson MD, III MD Frank A Cebul, III MD 08/12/2018 5:16 PM Signed PLAN: careful activity knee to chest and knee to opposite (right) shoulder--hold for 10 sec. Repeat 3-4 times/day add gabapentin 100mg daily--gradually increase number of doses/day to max of 3 doses per day Add Aleve 2 tabs twice/day may take hydrocodone sparingly as needed PT evaluation and treatment return to office 3 wks and as needed Abdoulaye Jain III MD Referring Provider: SELF [[id number]] Allergies As of Date: 08/12/2018 Noted Allergy Reaction AMOXICILLIN 03/13/2006 Comments: hives HYDROCHLOROTHIAZIDE 12/01/2014 14 - Other: See Comments Comments: hypokalemia OMEPRAZOLE 06/30/2012 4 - Hives PENICILLINS 03/13/2006 Comments: unknown SULFA (SULFONAMIDE ANTIBIOTICS) 03/13/2006 Comments: unknown ZETIA (EZETIMIBE) 03/13/2006 Comments: muscle pain Date Reviewed: 08/12/2018 Reviewed by: Lynn (Application Coordinator) KRISTA Parkinson - Fully Assessed Reason for Visit: Back Pain [12] Cmt: left side, worse today Primary Visit Diagnosis:Piriformis syndrome, left [G57.02] Other Visit Diagnosis:Left sided sciatica [M54.32] Order(s):CONSULT TO PHYSICAL THERAPY [9032] Order #: [id number]: 1 gabapentin (NEURONTIN) 100 mg capsuleTake 1 capsule by mouth three times daily as needed (nerve pain) for up to 30 days.Disp: 90 capsuleRfl: 1 Prescriptions as of 08/12/2018 Sig: PREDNISONE 10 MG TABLET Take 4 tabs daily for 3 days,* CLARITIN ORAL Take by mouth as needed. MELOXICAM 15 MG TABLET Take 1 tablet by mouth once d* NAPROXEN SODIUM 220 MG TABLET Take 220 mg by mouth twice da* ASPIRIN 81 MG TABLET,DELAYED * Take 81 mg by mouth once cel[place]* SPIRONOLACTONE 25 MG TABLET Take 1 tablet by mouth once d* METOPROLOL TARTRATE 100 MG TA* Take 1 tablet by mouth twice * AMLODIPINE 10 MG TABLET Take 1 tablet by mouth once d* LISINOPRIL 40 MG TABLET Take 1 tablet by mouth once d* GABAPENTIN 100 MG CAPSULE Take 1 capsule by mouth three* SIMVASTATIN 20 MG TABLET Take 1 tablet by mouth daily * Problem List As Of Date 08/12/2018 Noted Resolved HYPOPOTASSEMIA [E87.6] INVALID FOR* BENIGN HYPERTENSION [I10] Thoracic or lumbosacral neuritis or radiculitis*INVALID FOR*08/12/2018 Variants of migraine, not elsewhere classified,*INVALID FOR*08/12/2018 SPINAL STENOSIS-LUMBAR [M48.061] INVALID FOR* RECTAL BLEEDING (MELENA-578.1) [K62.5] INVALID FOR*08/12/2018 Sebaceous cyst [L72.3] INVALID FOR*08/12/2018 ASHD (arteriosclerotic heart disease) [I25.10] INVALID FOR* BPH associated with nocturia [N40.1, R35.1] INVALID FOR* History of adenomatous polyp of colon [Z86.010] INVALID FOR* Hypokalemia [E87.6] INVALID FOR*12/01/2014 Colon cancer (HCC) [C18.9] INVALID FOR* Hemorrhoids, internal, with bleeding [K64.8] INVALID FOR*08/12/2018 Adductor tendonitis [M65.80] INVALID FOR*08/12/2018 Right leg pain [M79.604] INVALID FOR*08/12/2018 Piriformis syndrome, left [G57.02] INVALID FOR* Left sided sciatica [M54.32] INVALID FOR* Cardiomyopathy, ischemic [I25.5] INVALID FOR* Other instructions from your clinician: PLAN: careful activity knee to chest and knee to opposite (right) shoulder--hold for 10 sec. Repeat 3-4 times/day add gabapentin 100mg daily--gradually increase number of doses/day to max of 3 doses per day Add Aleve 2 tabs twice/day may take hydrocodone sparingly as needed PT evaluation and treatment return to office 3 wks and as needed Abdoulaye Jain III MD Prescriptions ordered this encounter Disp Refills Start End GABAPENTIN 100 MG CAPSULE 90 c* 1 08/12/2018 09/11/2018 Route: ORAL Sig: Take 1 capsule by mouth three times daily as needed (nerve pain) for up to 30 days. Encounter Status:Closed by ABDOULAYE JAIN III, MD on 08/12/18 PROGRESS Observed: 08/03/2018 Status: COMPLETED Source: [place] 4:17 PM [facility] REPOSITORY O ID: [id number] Author: Evan Wright (Sridevi) Michel Service: (none) Author Type: Physician Regional Retail Sales Manager Type: Progress Notes Filed: 08/04/2018 8:32 PM Note Text: 83 year old male with c/o pain left leg. Steady pain that doesn't quit over last week. Moves around back of thigh, posterior calf, this morning in foot. Sore in ischium. Took Aleve 2 tabs yesterday which he rarely does, no change. Took one ASA tab this morning. No injury. Possibly overuse. [place] in [place] over last 2 days. 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 [facility] - see scanned documents - Essential hypertension, benign - Heart attack (HCC) - Hemorrhage of rectum and anus - High degree atrioventricular block 02/10/2015 [facility] - see scanned documents - Hx of coronary artery bypass graft - Other abnormal granulation tissue - Other and unspecified hyperlipidemia - Personal history of colonic polyps Colon polyps - 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 [facility] - see scanned documents - Small bowel obstruction (HCC) 02/10/2015 [facility] - see scanned document PAST SURGICAL HISTORY Procedure Laterality Date - CABG (4) VEIN GRAFTS AND ARTERIAL GRAFT(S) 03/2012 [facility] - COLONOSCOP W/ OR W/O [facility] Colonoscopy 2001,2002,2003,2004, - COLONOSCOP W/ OR W/O [facility] 01-18-16 - COLONOSCOPY ABLATION POLYP 01/19/09 Repeat in 2-2402-[id number] mid transverse/granulation tissue rectal anastomosis - HEART SURGERY HX - INSERT CATH,ART,PERCUT,SHORTTERM 02-01-15 - LAP COLECTMY W/ILEUM/ILEOCOL 02-01-15 - LAP, SURG ENTEROLYSIS 02-01-15 - LAP, SURG MOBIL SPLENIC FL DUR PTL COLECTOMY 02-01-15 - PART REMOVAL COLON W ANASTOMOSIS Hemicolectomy - PICC LINE 02/12/2015 [facility] - see scanned documents - REM LESION NEC,HND,SCAL 1.1-2.0CM 11/07/09 Exc. posterior neck len cyst Social History Marital status: Spouse name: Years of education: Number of children: Social History Main Topics Smoking status: Never Smoker Smokeless tobacco: Never Used Alcohol use: No Drug use: No ACTIVE PROBLEM LIST Hypopotassemia Essential Hypertension, Benign Other and Unspecified Hyperlipidemia Thoracic Or Lumbosacral Neuritis Or Radiculitis, Unspecified Variants of Migraine, Not Elsewhere Classified, With Intractable Migraine, So Stated, Without Mention of Status Migrainosus Spinal Stenosis, Lumbar Region, Without Neurogenic Claudication Benign Neoplasm of Colon RECTAL BLEEDING (MELENA-578.1) GRANULATION TISSUE, ABNORMAL POSTOPERATIVE Sebaceous Cyst Ashd (Arteriosclerotic Heart Disease) Bph Associated With Nocturia History of Adenomatous Polyp of Colon Colon Cancer (Hcc) Hemorrhoids, Internal, With Bleeding Adductor Tendonitis Right Leg Pain Current Outpatient Prescriptions: loratadine (CLARITIN ORAL) Take by mouth as needed. Disp: Rfl: meloxicam (MOBIC) 15 mg tablet Take 1 tablet by mouth once daily. Disp: 30 tablet Rfl: 0 naproxen sodium (ALEVE) 220 mg tablet Take 220 mg by mouth twice daily with meals. Disp: Rfl: aspirin, enteric coated (ASPIRIN, ENTERIC COATED) 81 mg EC tablet Take 81 mg by mouth once daily. Disp: Rfl: spironolactone (ALDACTONE) 25 mg tablet Take 1 tablet by mouth once daily. Disp: 30 tablet Rfl: 11 metoprolol tartrate, short acting, (LOPRESSOR) 100 mg tablet Take 1 tablet by mouth twice daily. Disp: 60 tablet Rfl: 5 amLODIPine (NORVASC) 10 mg tablet Take 1 tablet by mouth once daily. Disp: Rfl: 0 lisinopril 40 mg tablet Take 1 tablet by mouth once daily. Disp: 30 tablet Rfl: 0 simvastatin (ZOCOR) 20 mg tablet Take 1 tablet by mouth daily at bedtime. Disp: 30 tablet Rfl: 12 No current facility-administered medications for this visit. ADULT PREVNAR-13 due on 2001 DTAP,TDAP,TD(2 - Tdap) due on 07/05/2013 LDL CHOLESTEROL due on 11/27/2015 EXAM: BP 130/68 Pulse 80 Resp 20 Wt 93.4 kg (206 lb) BMI 34.81 kg/m? Pleasant obese older man in no acute distress. Alert and oriented all spheres. Normal affect and cognition. Speech normal. No deficits to learning or comprehension. Walking with limp on left. Skin warm, dry, pink to lips and nailbeds. Normal turgor. Respirations regular and unlabored. Pain in left lateral hamstring from ischium to insertion behind left knee. No bruising. Pain with stretching hamstring. Restriction in ROM bilateral hips right > left. No pain on left with internal or external rotation. No pain with load bearing. No pain with adduction Extrem: no clubbing, cyanosis, edema. Extremities are warm and pink with prompt capillary refill. ASSESSMENT/PLAN: 1. Left leg pain - ICD9: 729.5, ICD10: M79.605 (primary diagnosis) - PREDNISONE 10 MG TABLET - HYDROCODONE 5 MG-ACETAMINOPHEN 325 MG TABLET 2. Hamstring injury, right, initial encounter - ICD9: 959.6, ICD10: S76.301A - PREDNISONE 10 MG TABLET - HYDROCODONE 5 MG-ACETAMINOPHEN 325 MG TABLET Hamstring stretches reviewed. If not improving in 5-7 days consider imaging. Pain level is concerning. Nilam is not a complainer. Pain is focal in tendon. Evan Pearson PA-C CNOV Observed: 08/03/2018 Status: COMPLETED Source: [place] 3:40 PM [facility] REPOSITORY Office Visit (FAMPWS) NILAM TUCKER JR. ([id number]) 1935 Evan R Date Time Provider Department 08/03/18 3:40 PM Evan PEARSON) FAMPWS During your visit today, we recorded the following information about you: Pulse Respiration Blood pressure Weight 80/minute 20/minute 130/68 93.4 kg Evan Pearson PA-C 08/04/2018 8:32 PM Signed 83 year old male with c/o pain left leg. Steady pain that doesn't quit over last week. Moves around back of thigh, posterior calf, this morning in foot. Sore in ischium. Took Aleve 2 tabs yesterday which he rarely does, no change. Took one ASA tab this morning. No injury. Possibly overuse. [address] [place] in [place] over last 2 days. 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 [facility] - see scanned documents - Essential hypertension, benign - Heart attack (HCC) - Hemorrhage of rectum and anus - High degree atrioventricular block 02/10/2015 [facility] - see scanned documents - Hx of coronary artery bypass graft - Other abnormal granulation tissue - Other and unspecified hyperlipidemia - Personal history of colonic polyps Colon polyps - 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 [facility] - see scanned documents - Small bowel obstruction (HCC) 02/10/2015 [facility] - see scanned document PAST SURGICAL HISTORY Procedure Laterality Date - CABG (4) VEIN GRAFTS AND ARTERIAL GRAFT(S) 03/2012 [facility] - COLONOSCOP W/ OR W/O [facility] Colonoscopy 2001,2002,2003,2004, - COLONOSCOP W/ OR W/O [facility] 01-18-16 - COLONOSCOPY ABLATION POLYP 01/19/09 Repeat in 1-2941-Twhmg mid transverse/granulation tissue rectal anastomosis - HEART SURGERY HX - INSERT CATH,ART,PERCUT,SHORTTERM 02-01-15 - LAP COLECTMY W/ILEUM/ILEOCOL 02-01-15 - LAP, SURG ENTEROLYSIS 02-01-15 - LAP, SURG MOBIL SPLENIC FL DUR PTL COLECTOMY 02-01-15 - PART REMOVAL COLON W ANASTOMOSIS Hemicolectomy - PICC LINE 02/12/2015 [facility] - see scanned documents - REM LESION NEC,HND,SCAL 1.1-2.0CM 11/07/09 Exc. posterior neck len cyst Social History Marital status: Spouse name: Years of education: Number of children: Social History Main Topics Smoking status: Never Smoker Smokeless tobacco: Never Used Alcohol use: No Drug use: No ACTIVE PROBLEM LIST Hypopotassemia Essential Hypertension, Benign Other and Unspecified Hyperlipidemia Thoracic Or Lumbosacral Neuritis Or Radiculitis, Unspecified Variants of Migraine, Not Elsewhere Classified, With Intractable Migraine, So Stated, Without Mention of Status Migrainosus Spinal Stenosis, Lumbar Region, Without Neurogenic Claudication Benign Neoplasm of Colon RECTAL BLEEDING (MELENA-578.1) GRANULATION TISSUE, ABNORMAL POSTOPERATIVE Sebaceous Cyst Ashd (Arteriosclerotic Heart Disease) Bph Associated With Nocturia History of Adenomatous Polyp of Colon Colon Cancer (Hcc) Hemorrhoids, Internal, With Bleeding Adductor Tendonitis Right Leg Pain Current Outpatient Prescriptions: loratadine (CLARITIN ORAL) Take by mouth as needed. Disp: Rfl: meloxicam (MOBIC) 15 mg tablet Take 1 tablet by mouth once daily. Disp: 30 tablet Rfl: 0 naproxen sodium (ALEVE) 220 mg tablet Take 220 mg by mouth twice daily with meals. Disp: Rfl: aspirin, enteric coated (ASPIRIN, ENTERIC COATED) 81 mg EC tablet Take 81 mg by mouth once daily. Disp: Rfl: spironolactone (ALDACTONE) 25 mg tablet Take 1 tablet by mouth once daily. Disp: 30 tablet Rfl: 11 metoprolol tartrate, short acting, (LOPRESSOR) 100 mg tablet Take 1 tablet by mouth twice daily. Disp: 60 tablet Rfl: 5 amLODIPine (NORVASC) 10 mg tablet Take 1 tablet by mouth once daily. Disp: Rfl: 0 lisinopril 40 mg tablet Take 1 tablet by mouth once daily. Disp: 30 tablet Rfl: 0 simvastatin (ZOCOR) 20 mg tablet Take 1 tablet by mouth daily at bedtime. Disp: 30 tablet Rfl: 12 No current facility-administered medications for this visit. ADULT PREVNAR-13 due on 2001 DTAP,TDAP,TD(2 - Tdap) due on 07/05/2013 LDL CHOLESTEROL due on 11/27/2015 EXAM: BP 130/68 Pulse 80 Resp 20 Wt 93.4 kg (206 lb) BMI 34.81 kg/m? Pleasant obese older man in no acute distress. Alert and oriented all spheres. Normal affect and cognition. Speech normal. No deficits to learning or comprehension. Walking with limp on left. Skin warm, dry, pink to lips and nailbeds. Normal turgor. Respirations regular and unlabored. Pain in left lateral hamstring from ischium to insertion behind left knee. No bruising. Pain with stretching hamstring. Restriction in ROM bilateral hips right > left. No pain on left with internal or external rotation. No pain with load bearing. No pain with adduction Extrem: no clubbing, cyanosis, edema. Extremities are warm and pink with prompt capillary refill. ASSESSMENT/PLAN: 1. Left leg pain - ICD9: 729.5, ICD10: M79.605 (primary diagnosis) - PREDNISONE 10 MG TABLET - HYDROCODONE 5 MG-ACETAMINOPHEN 325 MG TABLET 2. Hamstring injury, right, initial encounter - ICD9: 959.6, ICD10: S76.301A - PREDNISONE 10 MG TABLET - HYDROCODONE 5 MG-ACETAMINOPHEN 325 MG TABLET Hamstring stretches reviewed. If not improving in 5-7 days consider imaging. Pain level is concerning. Nilam is not a complainer. Pain is focal in tendon. SRIDEVI Gallagher PA-C 08/03/2018 4:39 PM Signed Hamstring stretching as reviewed. NORCO as directed per prescription for pain being careful to limit to 1-2 doses a day unless it is more severe pain. Do not drive or operate dangerous machinery while on this medication. It may cause drowsiness or impair judgment and cause increased risk for falls. This medication may be habit forming if used regularly, and may cause drowsiness, so use caution. This medication may cause constipation so increase fiber and exercise if possible. Stimulant laxatives such as pericolace or Sennekot OTC may help if needed but should not be used over long periods. Prednisone is to reduce inflammation. Please follow up if not improving 5-7 days. Referring Provider: SELF [[id number]] Allergies As of Date: 08/03/2018 Noted Allergy Reaction AMOXICILLIN 03/13/2006 Comments: hives HYDROCHLOROTHIAZIDE 12/01/2014 14 - Other: See Comments Comments: hypokalemia OMEPRAZOLE 06/30/2012 4 - Hives PENICILLINS 03/13/2006 Comments: unknown SULFA (SULFONAMIDE ANTIBIOTICS) 03/13/2006 Comments: unknown ZETIA (EZETIMIBE) 03/13/2006 Comments: muscle pain Date Reviewed: 08/03/2018 Reviewed by: Sydney Michael LPN - Fully Assessed Reason for Visit: Leg Pain [1219] Cmt: Pain in left leg X 1 wk, no known injury Primary Visit Diagnosis:Left leg pain [M79.605] Other Visit Diagnosis:Hamstring injury, right, initial encounter [S76.301A] Order(s):predniSONE (DELTASONE) 10 mg tabletTake 4 tabs daily for 3 days, then 2 tabs daily for 3 days, then 1 tab daily for 3 days with food.Disp: 21 tabletRfl: 0 HYDROcodone-acetaminophen (NORCO) 5-325 mg per tabletTake 1 tablet by mouth every 6 hours as needed for Pain for up to 5 days.Disp: 20 tabletRfl: 0 Prescriptions as of 08/03/2018 Sig: CLARITIN ORAL Take by mouth as needed. MELOXICAM 15 MG TABLET Take 1 tablet by mouth once d* NAPROXEN SODIUM 220 MG TABLET Take 220 mg by mouth twice da* ASPIRIN 81 MG TABLET,DELAYED * Take 81 mg by mouth once celeste* SPIRONOLACTONE 25 MG TABLET Take 1 tablet by mouth once d* METOPROLOL TARTRATE 100 MG TA* Take 1 tablet by mouth twice * AMLODIPINE 10 MG TABLET Take 1 tablet by mouth once d* LISINOPRIL 40 MG TABLET Take 1 tablet by mouth once d* SIMVASTATIN 20 MG TABLET Take 1 tablet by mouth daily * PREDNISONE 10 MG TABLET Take 4 tabs daily for 3 days,* HYDROCODONE 5 MG-ACETAMINOPHE* Take 1 tablet by mouth every * Problem List As Of Date 08/03/2018 Noted Resolved HYPOPOTASSEMIA [E87.6] INVALID FOR* BENIGN HYPERTENSION [I10] HYPERLIPIDEMIA NEC/NOS [E78.5] LUMBOSACRAL NEURITIS NOS [[id number]] INVALID FOR* 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80] INVALID FOR* Right leg pain [M79.604] INVALID FOR* Other instructions from your clinician: Hamstring stretching as reviewed. NORCO as directed per prescription for pain being careful to limit to 1-2 doses a day unless it is more severe pain. Do not drive or operate dangerous machinery while on this medication. It may cause drowsiness or impair judgment and cause increased risk for falls. This medication may be habit forming if used regularly, and may cause drowsiness, so use caution. This medication may cause constipation so increase fiber and exercise if possible. Stimulant laxatives such as pericolace or Sennekot OTC may help if needed but should not be used over long periods. Prednisone is to reduce inflammation. Please follow up if not improving 5-7 days. Prescriptions ordered this encounter Disp Refills Start End PREDNISONE 10 MG TABLET 21 t* 0 08/03/2018 08/12/2018 Sig: Take 4 tabs daily for 3 days, then 2 tabs daily for 3 days, then 1 tab daily for 3 days with food. HYDROCODONE 5 MG-ACETAMINOPHEN 325 M* 20 t* 0 08/03/2018 08/08/2018 Class: Print RX Route: ORAL Sig: Take 1 tablet by mouth every 6 hours as needed for Pain for up to 5 days. Medications Discontinued During This Encounter predniSONE (DELTASONE) 10 mg tablet 21 t* 0 11/03/2017 08/03/2018 Sig: Take 4 tabs daily for 3 days, then 2 tabs daily for 3 days, then 1 tab daily for 3 days with food. Disc: Reason for discontinue is not on file. Encounter Status:Closed by Evan PEARSON PA-C on 08/04/18 INJ/ASP CATRACHO JT Observed: 03/30/2018 Status: F Source: [place] SHOULD/HIP/KNEE 8:19 AM [facility] [place] REPOSITORY [facility] Imaging Services [address] [place] [address] Inj/Asp Catracho Jt Should/Hip/Knee MR#: [id number] Acct: [id number] Name: NILAM TUCKER JrMikael Rep #: [id number] : 1935 M 82 From: Stanley Erickson MD PCP: Abdoulaye Jain III, MD Status: REG CLI Study: Inj/Asp Catracho Jt Should/Hip/Knee Date of Exam: 03/30/18 Exam# [id number] Ordering Dr: Noel Pompa MD PROCEDURE: Fluoroscopic guided Hip Injection DATE: March 30, 2018. INDICATION: Male, 82 years old. Chronic right hip pain. PHYSICIAN: Stanley Erickson M.D. MEDICATIONS: 40 mg of Kenalog and 4 cc of 1% lidocaine. 2% Lidocaine administered subcutaneously for local anesthesia. ACCESS SITE: Right hip. NEEDLE: 22-gauge spinal needle. FLUOROSCOPY TIME (if supplied): (0:33) minutes/seconds FINDINGS: The risks, benefits, and alternatives to the procedure were explained to the patient. The specific risks of bleeding, infection, and neurovascular injury were detailed and accepted. Witnessed informed consent was obtained. A 22-gauge spinal needle was positioned under radiographic fluoroscopic localization. Approximately 2 cc of Isovue-300 instilled for localization purposes. Medication was then injected. The patient tolerated the procedure well without any immediate complications. The patient was placed supine with head elevated and returned to the floor in stable condition. RAD/Inj/Asp Catracho Jt Should/Hip/Knee IMPRESSION: 1. Successful fluoroscopic guided hip injection. Electronically Signed: Stanley Erickson MD at 9:50 EDT Tel [phone], Service support , CC: Noel Pompa MD; Abdoulaye Jain III, MD Security System Analyst: Signed CARDIOLOGY VISIT Observed: 03/26/2018 Status: F Source: [place] REPORT 10:41 AM [facility] [place] REPOSITORY [facility] [address] [place] [address]. [address] [place] [address] OFFICE VISIT Date of Service: 03/26/18 MR#: [id number] Acct: [id number] Name: NILAM TUCKER Jr. Rep #: [id number] : 1935 Provider: Jadon Zuniga MD Age/Sex: 82/M Location: [facility] Status: Signed HPI HPI Chief Complaint: Follow-up visit. Details: NILAM TUCKER, is a 82 M who presents to the office today for a follow-up visit. He is a gentleman with a history of coronary artery disease status post carotid bypass surgery in 2011 he had a left internal mammary artery to the left anterior descending artery, saphenous vein graft to obtuse marginal branch posterolateral vessel and posterior descending artery. He has had no dizziness or diaphoresis no near syncope or syncope he returns for routine follow-up visit he has had some problems with his hip is going for an injection and wants to know whether he will be a candidate for a hip replacement at some point. His last echocardiogram had demonstrated ejection fraction approximately 40% with some segmental wall motion abnormalities present. He has had no neck arm or jaw discomfort suggest angina. His physical exam demonstrates clear lung dietz regular rate and rhythm and no pedal edema. 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 Is patient in pain?: No Allergies amoxicillin Allergy (Verified 03/26/18 10:11) Hives omeprazole Allergy (Verified 03/26/18 10:11) Hives Penicillins Allergy (Verified 03/26/18 10:11) Unknown Sulfa (Sulfonamide Antibiotics) Allergy (Verified 03/26/18 10:11) Unknown prednisone Adverse Reaction (Severe, Verified 03/26/18 10:11) Unknown ezetimibe [From Zetia] Adverse Reaction (Verified 03/26/18 10:11) Other Medications Aspirin [Aspir-Low] 81 mg PO DAILY 05/13/17 [History Confirmed 03/25/18] spironolactone 50 mg tablet 50 mg PO QDAY #90 tab 12/09/17 [Rx Confirmed 03/25/18] lisinopril 40 mg tablet 40 mg PO QDAY #90 tab 02/25/18 [Rx Confirmed 03/26/18] loratadine 10 mg tablet 10 mg PO PRN PRN 03/25/18 [History Confirmed 03/26/18] amlodipine 10 mg tablet 10 mg PO DAILY #90 tab 03/26/18 [Rx Confirmed 03/26/18] metoprolol tartrate 25 mg tablet 12.5 mg PO BID #90 tab 03/26/18 [Rx Confirmed 03/26/18] simvastatin 20 mg tablet 20 mg PO QHS #90 tab 03/26/18 [Rx Confirmed 03/26/18] PFSH Medical History 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) (Chronic) Atherosclerosis of coronary artery of [place] heart without angina pectoris (Chronic) Conduction disorder of the heart (Chronic) Ischemic cardiomyopathy (Chronic) HTN (hypertension) (Chronic) High degree atrioventricular block (Chronic) BPH (benign prostatic hyperplasia) (Chronic) Colon cancer (Chronic) Surgical History H/O coronary artery bypass surgery (Chronic 03/30/12) H/O hemorrhoidectomy (Chronic) History of partial colectomy (Chronic) Family History Father Hypertension Myocardial infarction from [place] age 74 CAD (coronary artery disease) Mother Hypertension Social History Smoking Status: Never smoker ROS Const Const: Negative for fatigue, weakness, body ache, fever(s), headache(s), chills, frequent falls, night sweats, daytime sleepiness, difficulty sleeping, excessive sweating, weight gain, weight loss, increased appetite, poor appetite, anorexia or other Eyes Eyes: Negative for blind spots, loss of peripheral vision, transient loss of vision, blurry vision, change in vision, double vision, floaters, tunnel vision or other ENT ENT: Negative for headache(s), dizziness, hearing loss, tinnitus, Nosebleed/epistaxis, balance problems, post nasal drip, lip swelling, tongue swelling, bleeding gums, hoarseness, neck pain, dry mouth or other Cardio Chest Pain: No Palpitations: No Edema: None Muscle aches with walking: None Resp Respiratory: Negative for SOB with activity, SOB at rest, SOB orthopnea\SOB lying down, Coughing up blood/hemoptysis, chest congestion, pain on inspiration, snoring, stridor, wheezing, crackles, paroxysmal nocturnal dyspnea or other GI GI: Negative nausea, vomiting, heartburn, constipation, belching, bloating, cramping, vomiting blood/hematemesis, bright, red blood in stools, black,tarry stools, loose stools, Difficulty Swallowing or other : Negative for hematuria, frequent nighttime urination/ nocturia, erectile dysfunction or abnormal vaginal bleeding Musc Musc: Negative for balance problems, muscle aches/ myalgia, muscle weakness or joint pain Skin Skin: Negative redness, non-healing lesions, rash, unusual bruising, skin ulcer, wounds, jaundice or other Neuro Neuro: Negative for weakness, headache(s), frequent falls, blurry vision, double vision, dizziness, lightheadedness, near syncope, syncope, orthostatic symptoms, confusion, memory loss, restless legs, vertigo, seizures, lack of coordination or other Ming Hematologic/Lymphatic: Negative for easy bleeding, easy bruising, enlarged lymph nodes or other Endo Endo: Negative for fatigue, excessive sweating, cold intolerance, heat intolerance, flushing, increased thirst/drinking, increased hunger, hair loss, hair growth or other Psych Psych: Negative for anxiety, depression, thoughts of harming anyone, thoughts of harming yourself, visual hallucinations, panic attacks or audible hallucinations Allergy Allergy/Immunology: Negative for lip swelling, Negative for tongue swelling, Negative for rash, Negative for throat swelling, Negative for hives Cardiology Exam Const Appearance: cooperative, healthy appearing, well developed, well groomed and no acute distress Nutritional Appearance: well nourished and average body habitus Orientation: alert, awake and oriented x3 Head Head: normal to inspection, normocephalic and atraumatic Ears: hearing grossly normal bilaterally and external ears normal Nose: external nose normal, nasal mucous membranes and turbinates normal, nares normal, septum normal, no nasal discharge Face and Sinus: face symmetric Mouth: oral mucosae normal, tongue normal, oropharynx normal and moist mucous membranes Teeth and gingiva: dentition normal Throat: posterior oropharynx normal, tonsils normal and uvula midline Eyes General: appearance normal, both eyes and all related structures Eyelids: eyelids normal Conjunctivae: conjunctivae normal Pupils: PERRL, normal by confrontation and accommodation normal EOM: EOM intact bilaterally Neck Neck: normal visual inspection, trachea midline and no JVD JVD: +5 Carotids: normal carotid upstroke and bounding pulses Chest Chest inspection: normal inspection of the chest, symmetric chest movement and normal respiratory effort Auscultation: Bilateral: Clear to Auscultation Cardio Palpation: normal PMI Rate: regular rate Rhythm: regular rhythm Heart sounds: S1 normal, S2 normal and normal, physiologic split S2; negative rub, gallop or murmur GI GI: normal to inspection, soft, no hepatosplenomegaly and bowel sounds present Neuro General: alert, awake, oriented x3, no focal sensory deficit, gait normal and moves all extremities Skin Skin: no rashes or lesions noted Extremities Pulses: Normal: Right Femoral Pulse, Left Femoral Pulse, Right Dorsalis Pedis Pulse, Left Dorsalis Pedis Pulse, Right Posterior Tibial Pulse, Left Posterior Tibial Pulse, Right Radial Pulse, Left Radial Pulse Lower Extremity Edema: None: Bilateral Musculoskel Musculoskeletal: No joint tenderness Psych Psychological: normal affect Assessment AND Plan 1. H/O coronary artery bypass surgery Z95.1 CABG X 4 RUVALCABA to LAD, SVG to OM, Sequential SVG-PLB and PDA 03/30/12 Plan He is status post carotid bypass surgery at this time he has no evidence of angina my recommendation is for him to continue the current medical therapy. He is contemplating hip surgery at some point and I suggested to him that we will recommend pharmacologic myocardial perfusion stress test at that point when it comes up. He should not hesitate to let us know. 2. HTN (hypertension) I10 Plan His blood pressure is under good control on the current medical therapy no other major changes will be made. He will remain on the beta-esa and the AKASH inhibitor as well as the spironolactone. 3. Ischemic cardiomyopathy I25.5 Plan He does have a history of ischemic cardiomyopathy with an estimated ejection fraction of 40% but with no heart failure symptoms he will remain on the same medications at this time. 4. HLD (hyperlipidemia) E78.5 Plan He does have a history of hyperlipidemia and his most recent lipid profile demonstrates a total cholesterol 147, HDL 43 and LDL 49. His triglycerides are elevated at 275 he will continue with aggressive risk factor modification. Thank you for allowing me to participate in his care. Plan Detail Other Medications New: Refilled: Follow Up 6 Months (r) Coding Level of Care Code Off vis,est,level 4 Diagnoses H/O coronary artery bypass surgery Z95.1 HTN (hypertension) I10 Ischemic cardiomyopathy I25.5 HLD (hyperlipidemia) E78.5 Coding Level of Care Code Off vis,est,level 4 Diagnoses H/O coronary artery bypass surgery Z95.1 HTN (hypertension) I10 Ischemic cardiomyopathy I25.5 HLD (hyperlipidemia) E78.5 03/26/18 1041 <Electronically signed by Jadon Zuniga MD> Date Jadon Zuniga MD Cosigner Signature: Date (if applicable) CC: Abdoulaye Jain III, MD LIVER PROFILE Collected: 03/24/2018 Status: F Source: [place] 8:07 AM [facility] [place] REPOSITORY TYPE CODE TESTS RESULT OUT OF RANGE REFERENCE UNITS LAB L501.1500 6.4-8.2 g/dL Normal T PROT 7.7 LAB L501.1800 3.2-5.0 g/dL Normal ALB 3.8 LAB L501.1950 2.2-4.2 g/dL Normal GLOB 3.9 LAB L501.4100 15-37 U/L Normal AST 25 LAB L501.4305 45-117 U/L Low ALK P 43 LAB L501.4405 16-61 U/L Normal ALT 32 LAB L501.4600 0.20-1.00 mg/dL Normal T BILI 0.60 LAB L501.4700 0.00-0.30 mg/dL Normal D BILI 0.15 Performed By: #### L500.3400, L500.4100 #### [facility] [address] [place], [place], [id number] LIPID PROFILE Collected: 03/24/2018 Status: F Source: [place] 8:07 AM [facility] [place] REPOSITORY TYPE CODE TESTS RESULT OUT OF RANGE REFERENCE UNITS LAB L501.4900 200 mg/dL Normal CHOL 147 Result Comment: <200 mg/dL Desirable 200-240 mg/dL Borderline >240 mg/dL High Risk LAB L501.5000 mg/dL High TRIG 275 Result Comment: The drugs N-Acetylcysteine and Metamizole may falsely depress this assay. Serum Triglycerides Reference Interval Normal <150 mg/dL Borderline high 150 - 199 mg/dL High 200 - 499 mg/dL Very High > or = 500 mg/dL LAB L501.6400 mg/dL Normal HDL 43 Result Comment: The drugs N-Acetylcysteine and Metamizole may falsely depress this assay. Reference Range HDL <40 mg/dL Low HDL Cholesterol HDL >or= 60 mg/dL High HDL Cholesterol LAB L501.6500 0-130 mg/dL Normal LDL 49 LAB L501.6600 5-40 mg/dL High VLDL 55 Performed By: #### L500.3400, L500.4100 #### [facility] [address] [place], [address] PROGRESS Observed: 01/26/2018 Status: COMPLETED Source: [place] 2:44 PM [facility] REPOSITORY O ID: [id number] Author: Juancarlos Roman V Service: (none) Author Type: Physician Type: Progress Notes Filed: 01/26/2018 2:47 PM Note Text: Nilam Tucker Jr. presents for follow-up of pain in the right hip. 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 He states that his hip pain is manageable when he is sitting, but when he has to go up and down stairs, climb on his tractor, or walk he has pain in the groin on the right side. He takes Aleve for symptom relief, and get some benefit from it. Physical Exam Findings: Examination of the right hip shows significant restriction with internal and external rotation as well as flexion. Patient is able to stand from seated position and walk with a limp., Assessment: Osteoarthritis right hip Plan: Discussed referral to the [facility] interventional radiologist for intra-articular injection of the right hip under fluoroscopic guidance. Order is entered. He will contact us with a time that is good for him to do the procedure. Patient's request for medication is as follows Signed Prescriptions Disp Refills meloxicam (MOBIC) 15 mg tablet 30 tablet 0 Sig: Take 1 tablet by mouth once daily. Juancarlos Roman DO PROGRESS Observed: 01/26/2018 Status: COMPLETED Source: [place] 10:49 AM [facility] REPOSITORY HNO ID: [id number] Author: Latasha Merida Ma Service: (none) Author Type: (none) Type: Progress Notes Filed: 01/26/2018 2:47 PM Note Text: .[facility] DATA Risk Screening Do you have concerns about personal safety or safety in the home?: No Pain Pain Score: 5/10 Pain Location: Hip-Right Description: Dull, Sharp Duration Amount of Time: (Ongoing) Frequency: Intermittent (Depends on activity) Intervention: Medication Patient here to discuss injection right hip. Taking Aleve as needed for the pain and helps. CNOV Observed: 01/26/2018 Status: COMPLETED Source: [place] 10:40 AM [facility] Office Visit (UC) NILAM TUCKER JR. ([id number]) 1935 M NFR Date Time Provider Department 01/26/18 10:40 AM JUANCARLOS ROMAN During your visit today, we recorded the following information about you: Latasha Merida Ma 01/26/2018 2:47 PM Signed .[facility] IN[facility] FLOWSHEET DATA Risk Screening Do you have concerns about personal safety or safety in the home?: No Pain Pain Score: 5/10 Pain Location: Hip-Right Description: Dull, Sharp Duration Amount of Time: (Ongoing) Frequency: Intermittent (Depends on activity) Intervention: Medication Patient here to discuss injection right hip. Taking Aleve as needed for the pain and helps. Juancarlos Roman DO 01/26/2018 2:47 PM Signed Nilam Tucker Jr. presents for follow-up of pain in the right hip. 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 He states that his hip pain is manageable when he is sitting, but when he has to go up and down stairs, climb on his tractor, or walk he has pain in the groin on the right side. He takes Aleve for symptom relief, and get some benefit from it. Physical Exam Findings: Examination of the right hip shows significant restriction with internal and external rotation as well as flexion. Patient is able to stand from seated position and walk with a limp., Assessment: Osteoarthritis right hip Plan: Discussed referral to the [facility] interventional radiologist for intra-articular injection of the right hip under fluoroscopic guidance. Order is entered. He will contact us with a time that is good for him to do the procedure. Patient's request for medication is as follows Signed Prescriptions Disp Refills meloxicam (MOBIC) 15 mg tablet 30 tablet 0 Sig: Take 1 tablet by mouth once daily. Juancarlos Roman DO Referring Provider: Evan PEARSON (SRIDEVI) [[id number]] Allergies As of Date: 01/26/2018 Noted Allergy Reaction AMOXICILLIN 03/13/2006 Comments: hives HYDROCHLOROTHIAZIDE 12/01/2014 14 - Other: See Comments Comments: hypokalemia OMEPRAZOLE 06/30/2012 4 - Hives PENICILLINS 03/13/2006 Comments: unknown SULFA (SULFONAMIDE ANTIBIOTICS) 03/13/2006 Comments: unknown ZETIA (EZETIMIBE) 03/13/2006 Comments: muscle pain Date Reviewed: 01/05/2018 Reviewed by: Enedelia Ngo LPN - Fully Assessed Reason for Visit: Established Patient [175] Cmt: 7 weeks 3 days tear right acetabular labrum Primary Visit Diagnosis:Arthritis of hip [M16.10] Other Visit Diagnosis:Arthritis of right hip [M16.11] Order(s):DRAIN/INJECT LARGE JOINT/BURSA [[id number]] Order #: [id number] meloxicam (MOBIC) 15 mg tabletTake 1 tablet by mouth once daily.Disp: 30 tabletRfl: 0 Prescriptions as of 01/26/2018 Sig: CLARITIN ORAL Take by mouth as needed. NAPROXEN SODIUM 220 MG TABLET Take 220 mg by mouth twice da* ASPIRIN 81 MG TABLET,DELAYED * Take 81 mg by mouth once celeste* SPIRONOLACTONE 25 MG TABLET Take 1 tablet by mouth once d* METOPROLOL TARTRATE 100 MG TA* Take 1 tablet by mouth twice * AMLODIPINE 10 MG TABLET Take 1 tablet by mouth once d* LISINOPRIL 40 MG TABLET Take 1 tablet by mouth once d* SIMVASTATIN 20 MG TABLET Take 1 tablet by mouth daily * MELOXICAM 15 MG TABLET Take 1 tablet by mouth once d* Problem List As Of Date 01/26/2018 Noted Resolved HYPOPOTASSEMIA [E87.6] INVALID FOR* BENIGN HYPERTENSION [I10] HYPERLIPIDEMIA NEC/NOS [E78.5] LUMBOSACRAL NEURITIS NOS [DQC7081] INVALID FOR* 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80] INVALID FOR* Right leg pain [M79.604] INVALID FOR* Prescriptions ordered this encounter Disp Refills Start End MELOXICAM 15 MG TABLET 30 t* 0 01/26/2018 Route: ORAL Sig: Take 1 tablet by mouth once daily. Encounter Status:Closed by JUANCARLOS ROMAN DO, V on 01/26/18 PROGRESS Observed: 01/05/2018 Status: COMPLETED Source: [place] 5:53 PM [facility] REPOSITORY HNO ID: [id number] Author: Evan Wright (Sridevi) Michel Service: (none) Author Type: Physician Regional Retail Sales Manager Type: Progress Notes Filed: 01/05/2018 6:04 PM Note Text: 82 year old male with c/o here to discuss his recent visit with Dr. Roman and ask my opinion. Recommendation was to consider surgical options and/or ultrasound-guided injection as a temporizing measure for his planting season. Patient was advised at that visit that this would be a temporary solution. Patient is been resistant to the idea of surgical intervention. Says his does not want to consider it and tells him that he needs to basically act his age. 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 We reviewed results of his MRI which demonstrated torn labrum. I reviewed this at length with the pathophysiology and mechanics of hip range of motion with use of online pictures. The reason he is having spasm is because the hip is unstable. 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 [facility] - see scanned documents - Essential hypertension, benign - Heart attack (HCC) - Hemorrhage of rectum and anus - High degree atrioventricular block 02/10/2015 [facility] - see scanned documents - Other abnormal granulation tissue - Other and unspecified hyperlipidemia - Personal history of colonic polyps Colon polyps - 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 [facility] - see scanned documents - Small bowel obstruction 02/10/2015 [facility] - see scanned document PAST SURGICAL HISTORY Procedure Laterality Date - CABG (4) VEIN GRAFTS AND ARTERIAL GRAFT(S) 03/2012 [facility] - COLONOSCOP W/ OR W/O [facility] Colonoscopy 2001,2002,2003,2004, - COLONOSCOP W/ OR W/O [facility] 01-18-16 - COLONOSCOPY ABLATION POLYP 01/19/09 Repeat in [id number] mid transverse/granulation tissue rectal anastomosis - HEART SURGERY HX - INSERT CATH,ART,PERCUT,SHORTTERM 02-01-15 - LAP COLECTMY W/ILEUM/ILEOCOL 02-01-15 - LAP, SURG ENTEROLYSIS 02-01-15 - LAP, SURG MOBIL SPLENIC FL DUR PTL COLECTOMY 02-01-15 - PART REMOVAL COLON W ANASTOMOSIS Hemicolectomy - PICC LINE 02/12/2015 [facility] - see scanned documents - REM LESION NEC,HND,SCAL 1.1-2.0CM 11/07/09 Exc. posterior neck len cyst Social History Marital status: Spouse name: Years of education: Number of children: Social History Main Topics Smoking status: Never Smoker Smokeless status: Never Used Alcohol use: No Drug use: No ACTIVE PROBLEM LIST Hypopotassemia Essential Hypertension, Benign Other and Unspecified Hyperlipidemia Thoracic Or Lumbosacral Neuritis Or Radiculitis, Unspecified Variants of Migraine, Not Elsewhere Classified, With Intractable Migraine, So Stated, Without Mention of Status Migrainosus Spinal Stenosis, Lumbar Region, Without Neurogenic Claudication Benign Neoplasm of Colon RECTAL BLEEDING (MELENA-578.1) GRANULATION TISSUE, ABNORMAL POSTOPERATIVE Sebaceous Cyst Ashd (Arteriosclerotic Heart Disease) 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 Disp: Rfl: aspirin, enteric coated (ASPIRIN, ENTERIC COATED) 81 mg EC tablet Take 81 mg by mouth once daily. Disp: Rfl: spironolactone (ALDACTONE) 25 mg tablet Take 1 tablet by mouth once daily. Disp: 30 tablet Rfl: 11 metoprolol tartrate, short acting, (LOPRESSOR) 100 mg tablet Take 1 tablet by mouth twice daily. Disp: 60 tablet Rfl: 5 amLODIPine (NORVASC) 10 mg tablet Take 1 tablet by mouth once daily. Disp: Rfl: 0 lisinopril 40 mg tablet Take 1 tablet by mouth once daily. Disp: 30 tablet Rfl: 0 simvastatin (ZOCOR) 20 mg tablet Take 1 tablet by mouth daily at bedtime. Disp: 30 tablet Rfl: 12 No current facility-administered medications for this visit. ADULT PREVNAR-13 due on 2001 TETANUS due on 07/05/2013 EXAM: BP 148/72 Pulse 80 Resp 16 Wt 94.3 kg (208 lb) BMI 35.15 kg/m2 Pleasant obese adult male. Walking with antalalgic gait. Alert and oriented all spheres. Normal affect and cognition. Speech normal. No deficits to learning or comprehension. Skin warm, dry, pink to lips and nailbeds. Normal turgor. Respirations regular and unlabored. ASSESSMENT/PLAN: 1. Tear of right acetabular labrum, subsequent encounter - ICD9: V58.89, 843.8, ICD10: S73.191Sonido Demarco is a very healthy older adult male who I think will not be comfortable with maintaining his current status or with temporizing measures. I have encouraged him to proceed with Dr. Roman's recommendation for cortisone injection for planting seasons and then to consider surgical options which I think he would tolerate well. We discussed the possibility of repair the labrum but if he waits too long it may atrophy. Evan Pearson PA-C CNOV Observed: 01/05/2018 Status: COMPLETED Source: [place] 10:00 AM [facility] REPOSITORY Office Visit (FAMPWS) TUCKERNILAM JR. ([id number]) 1935 [facility] Date Time Provider Department 01/05/18 10:00 AM Evan PEARSON) [facility] During your visit today, we recorded the following information about you: Pulse Respiration Blood pressure Weight 80/minute 16/minute 148/72 94.3 kg Evan Pearson PA-C 01/05/2018 6:04 PM Signed 82 year old male with c/o here to discuss his recent visit with Dr. Roman and ask my opinion. Recommendation was to consider surgical options and/or ultrasound-guided injection as a temporizing measure for his planting season. Patient was advised at that visit that this would be a temporary solution. Patient is been resistant to the idea of surgical intervention. Says his does not want to consider it and tells him that he needs to basically act his age. 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 We reviewed results of his MRI which demonstrated torn labrum. I reviewed this at length with the pathophysiology and mechanics of hip range of motion with use of online pictures. The reason he is having spasm is because the hip is unstable. 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 [facility] - see scanned documents - Essential hypertension, benign - Heart attack (HCC) - Hemorrhage of rectum and anus - High degree atrioventricular block 02/10/2015 [facility] - see scanned documents - Other abnormal granulation tissue - Other and unspecified hyperlipidemia - Personal history of colonic polyps Colon polyps - 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 [facility] - see scanned documents - Small bowel obstruction 02/10/2015 [facility] - see scanned document PAST SURGICAL HISTORY Procedure Laterality Date - CABG (4) VEIN GRAFTS ANDamp; ARTERIAL GRAFT(S) 03/2012 [facility] - COLONOSCOP W/ OR W/O [facility] Colonoscopy 2001,2002,2003,2004, - COLONOSCOP W/ OR W/O [facility] 01-18-16 - COLONOSCOPY ABLATION POLYP 01/19/09 Repeat in [id number] mid transverse/granulation tissue rectal anastomosis - HEART SURGERY HX - INSERT CATH,ART,PERCUT,SHORTTERM 02-01-15 - LAP COLECTMY W/ILEUM/ILEOCOL 02-01-15 - LAP, SURG ENTEROLYSIS 02-01-15 - LAP, SURG MOBIL SPLENIC FL DUR PTL COLECTOMY 02-01-15 - PART REMOVAL COLON W ANASTOMOSIS Hemicolectomy - PICC LINE 02/12/2015 [facility] - see scanned documents - REM LESION NEC,HND,SCAL 1.1-2.0CM 11/07/09 Exc. posterior neck len cyst Social History Marital status: Spouse name: Years of education: Number of children: Social History Main Topics Smoking status: Never Smoker Smokeless status: Never Used Alcohol use: No Drug use: No ACTIVE PROBLEM LIST Hypopotassemia Essential Hypertension, Benign Other and Unspecified Hyperlipidemia Thoracic Or Lumbosacral Neuritis Or Radiculitis, Unspecified Variants of Migraine, Not Elsewhere Classified, With Intractable Migraine, So Stated, Without Mention of Status Migrainosus Spinal Stenosis, Lumbar Region, Without Neurogenic Claudication Benign Neoplasm of Colon RECTAL BLEEDING (MELENA-578.1) GRANULATION TISSUE, ABNORMAL POSTOPERATIVE Sebaceous Cyst Ashd (Arteriosclerotic Heart Disease) 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 Disp: Rfl: aspirin, enteric coated (ASPIRIN, ENTERIC COATED) 81 mg EC tablet Take 81 mg by mouth once daily. Disp: Rfl: spironolactone (ALDACTONE) 25 mg tablet Take 1 tablet by mouth once daily. Disp: 30 tablet Rfl: 11 metoprolol tartrate, short acting, (LOPRESSOR) 100 mg tablet Take 1 tablet by mouth twice daily. Disp: 60 tablet Rfl: 5 amLODIPine (NORVASC) 10 mg tablet Take 1 tablet by mouth once daily. Disp: Rfl: 0 lisinopril 40 mg tablet Take 1 tablet by mouth once daily. Disp: 30 tablet Rfl: 0 simvastatin (ZOCOR) 20 mg tablet Take 1 tablet by mouth daily at bedtime. Disp: 30 tablet Rfl: 12 No current facility-administered medications for this visit. ADULT PREVNAR-13 due on 2001 TETANUS due on 07/05/2013 EXAM: BP 148/72 Pulse 80 Resp 16 Wt 94.3 kg (208 lb) BMI 35.15 kg/m2 Pleasant obese adult male. Walking with antalalgic gait. Alert and oriented all spheres. Normal affect and cognition. Speech normal. No deficits to learning or comprehension. Skin warm, dry, pink to lips and nailbeds. Normal turgor. Respirations regular and unlabored. ASSESSMENT/PLAN: 1. Tear of right acetabular labrum, subsequent encounter - ICD9: V58.89, 843.8, ICD10: S73.191D Nilam is a very healthy older adult male who I think will not be comfortable with maintaining his current status or with temporizing measures. I have encouraged him to proceed with Dr. Roman's recommendation for cortisone injection for planting seasons and then to consider surgical options which I think he would tolerate well. We discussed the possibility of repair the labrum but if he waits too long it may atrophy. Evan Pearson PA-C Referring Provider: Evan PEARSON (SRIDEVI) [[id number]] Allergies As of Date: 01/05/2018 Noted Allergy Reaction AMOXICILLIN 03/13/2006 Comments: hives HYDROCHLOROTHIAZIDE 12/01/2014 14 - Other: See Comments Comments: hypokalemia OMEPRAZOLE 06/30/2012 4 - Hives PENICILLINS 03/13/2006 Comments: unknown SULFA (SULFONAMIDE ANTIBIOTICS) 03/13/2006 Comments: unknown ZETIA (EZETIMIBE) 03/13/2006 Comments: muscle pain Date Reviewed: 01/05/2018 Reviewed by: Enedelia Ngo LPN - Fully Assessed Reason for Visit: Recheck [92] Cmt: right groin area Dr. Roman is recommending steriod injection and patient wanted Jose's opinion Reason For Visit History Recorded Primary Visit Diagnosis:Tear of right acetabular labrum, subsequent encounter [S73.191D] Prescriptions as of 01/05/2018 Sig: NAPROXEN SODIUM 220 MG TABLET Take 220 mg by mouth twice da* ASPIRIN 81 MG TABLET,DELAYED * Take 81 mg by mouth once celeste* SPIRONOLACTONE 25 MG TABLET Take 1 tablet by mouth once d* METOPROLOL TARTRATE 100 MG TA* Take 1 tablet by mouth twice * AMLODIPINE 10 MG TABLET Take 1 tablet by mouth once d* LISINOPRIL 40 MG TABLET Take 1 tablet by mouth once d* SIMVASTATIN 20 MG TABLET Take 1 tablet by mouth daily * Problem List As Of Date 01/05/2018 Noted Resolved HYPOPOTASSEMIA [E87.6] INVALID FOR* BENIGN HYPERTENSION [I10] HYPERLIPIDEMIA NEC/NOS [E78.5] LUMBOSACRAL NEURITIS NOS [[id number]] INVALID FOR* 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80] INVALID FOR* Right leg pain [M79.604] INVALID FOR* Encounter Status:Closed by Evan PEARSON PA-C on 01/05/18 LIVER PROFILE Collected: 01/05/2018 Status: F Source: [place] 8:17 AM [facility] REPOSITORY Order Comment: Order Date: 07/04/17 Order Info: [id number] - *Hepatic Function Panel Order Info: [id number] - *Lipid Profile CC PCP Comments: 12 hours fasting, may have water. TYPE CODE TESTS RESULT OUT OF RANGE REFERENCE UNITS LAB L501.1500 6.4-8.2 g/dL Normal T PROT 7.5 LAB L501.1800 3.2-5.0 g/dL Normal ALB 3.7 LAB L501.1950 2.2-4.2 g/dL Normal GLOB 3.8 LAB L501.4100 15-37 U/L Normal AST 23 LAB L501.4305 45-117 U/L Low ALK P 40 LAB L501.4405 16-61 U/L Normal ALT 29 Result Comment: Please note revised ALT reference range effective 2017. LAB L501.4600 0.20-1.00 mg/dL Normal T BILI 0.50 LAB L501.4700 0.00-0.30 mg/dL Normal D BILI 0.13 Performed By: #### L500.3400 #### [facility] [place], [address] LIPID PROFILE Collected: 01/05/2018 Status: F Source: [place] 8:17 AM [facility] REPOSITORY Order Comment: Order Date: 07/04/17 Order Info: [id number] - *Hepatic Function Panel Order Info: [id number] - *Lipid Profile CC PCP Comments: 12 hours fasting, may have water. TYPE CODE TESTS RESULT OUT OF RANGE REFERENCE UNITS LAB L501.4900 200 mg/dL Normal CHOL 150 Result Comment: <200 mg/dL Desirable 200-240 mg/dL Borderline >240 mg/dL High Risk LAB L501.5000 mg/dL High TRIG 276 Result Comment: The drugs N-Acetylcysteine and Metamizole may falsely depress this assay. Serum Triglycerides Reference Interval Normal <150 mg/dL Borderline high 150 - 199 mg/dL High 200 - 499 mg/dL Very High > or = 500 mg/dL LAB L501.6400 mg/dL Normal HDL 47 Result Comment: The drugs N-Acetylcysteine and Metamizole may falsely depress this assay. Reference Range HDL <40 mg/dL Low HDL Cholesterol HDL >or= 60 mg/dL High HDL Cholesterol LAB L501.6500 0-130 mg/dL Normal LDL 48 LAB L501.6600 5-40 mg/dL High VLDL 55 Performed By: #### L500.4100 #### [facility] [address] [place], [address] PROGRESS Observed: 12/04/2017 Status: COMPLETED Source: [place] 10:20 AM [facility] REPOSITORY O ID: [id number] Author: Juancarlos Roman V Service: (none) Author Type: Physician Type: Progress Notes Filed: 12/04/2017 11:18 AM Note Text: Evan Pearson PA-C [address] [facility] [address] Mr. Tucker is a 82 year old male that presents today complaining of hip problems on the right side for the last 3 months. 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 The pain is described as chronic and intermittent located in the groin. ALLERGIES: Amoxicillin; Hydrochlorothiazide; Omeprazole; Penicillins; Sulfa (Sulfonamide Antibiotics); Zetia [Ezetimibe] MEDICATIONS: Current Outpatient Prescriptions: naproxen sodium (ALEVE) 220 mg tablet Take 220 mg by mouth twice daily with meals. aspirin, enteric coated (ASPIRIN, ENTERIC COATED) 81 mg EC tablet Take 81 mg by mouth once daily. spironolactone (ALDACTONE) 25 mg tablet Take 1 tablet by mouth once daily. metoprolol tartrate, short acting, (LOPRESSOR) 100 mg tablet Take 1 tablet by mouth twice daily. amLODIPine (NORVASC) 10 mg tablet Take 1 tablet by mouth once daily. lisinopril 40 mg tablet Take 1 tablet by mouth once daily. simvastatin (ZOCOR) 20 mg tablet Take 1 tablet by mouth daily at bedtime. No current facility-administered medications for this visit. 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 [facility] - see scanned documents - Essential hypertension, benign - Heart attack (HCC) - Hemorrhage of rectum and anus - High degree atrioventricular block 02/10/2015 [facility] - see scanned documents - Other abnormal granulation tissue - Other and unspecified hyperlipidemia - Personal history of colonic polyps Colon polyps - 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 [facility] - see scanned documents - Small bowel obstruction 02/10/2015 [facility] - see scanned document SURGICAL HISTORY: PAST SURGICAL HISTORY Procedure Laterality Date - CABG (4) VEIN GRAFTS AND ARTERIAL GRAFT(S) 03/2012 [facility] - COLONOSCOP W/ OR W/O [facility] Colonoscopy 2001,2002,2003,2004, - COLONOSCOP W/ OR W/O [facility] 01-18-16 - COLONOSCOPY ABLATION POLYP 01/19/09 Repeat in [id number]-[id number] mid transverse/granulation tissue rectal anastomosis - HEART SURGERY HX - INSERT CATH,ART,PERCUT,SHORTTERM 02-01-15 - LAP COLECTMY W/ILEUM/ILEOCOL 02-01-15 - LAP, SURG ENTEROLYSIS 02-01-15 - LAP, SURG MOBIL SPLENIC FL DUR PTL COLECTOMY 02-01-15 - PART REMOVAL COLON W ANASTOMOSIS Hemicolectomy - PICC LINE 02/12/2015 [facility] - see scanned documents - REM LESION NEC,HND,SCAL 1.1-2.0CM 11/07/09 Exc. posterior neck len cyst FAMILY HISTORY: FAMILY HISTORY Problem Relation Age of Onset - Coronary Artery Disease Father with [place] - Prostate Cancer Brother - Coronary Artery Disease Brother - Heart Sister heart valve replacement - Thyroid Sister - Thyroid Sister - Thyroid Sister - None Sister - None Sister - None Sister SOCIAL HISTORY: Social History Marital status: Spouse name: Years of education: Number of children: Social History Main Topics Smoking status: Never Smoker Smokeless status: Never Used Alcohol use: No Drug use: No PHYSICAL ASSESSMENT: The Pt walks with a limping gait B/l LE have Nl Alignment The Left hip reveals no hip flexion contracture, 0-100 degrees of flexion, Internal Rotation to 20 degrees in flexion and external rotation to 45 degrees in flexion. Abduction to 45 degrees and adduction to 20 degrees. There is no pain with palpation over the ischial tuberosity or the greater trochanter. The Right hip reveals no hip flexion contracture, 0-100 degrees of flexion, Internal Rotation to 15 degrees in flexion and external rotation to 35 degrees in flexion. Abduction to 35 degrees and adduction to 20 degrees. There is no pain with palpation over the ischial tuberosity or the greater trochanter. Right Knee Reveals No Effusion. 0-135 degrees of motion. No Abnormal Anterior, Posterior, Varus or Valgus Laxity. No Medial or Lateral Joint Line Tenderness. No pain with Direct Palpation over the Distal Medial or Lateral Femoral Condyles. Negative Donna's Test. No pain with Patellar compression. 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 Assess possible treatment options including surgery, intra-articular injection, therapy and medication. Patient states that he did some physical therapy and feels that it helped slightly and he continues to do home exercises. He is not interested in pursuing surgical options at this time. 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 We discussed having a intra articular injection of the hip 1-2 weeks before he begins planting season. He will call in to arrange at the time. He takes Advil 220 mg about 3 times a week, I informed her that he could take to twice a day as needed as long as he is not having any side effects. Juancarlos Roman DO CNOV Observed: 12/04/2017 Status: COMPLETED Source: [place] 10:00 AM [facility] REPOSITORY Office Visit () NILAM TUCKER JR. ([id number]) 1935 M NFR Date Time Provider Department 12/04/17 10:00 AM JUANCARLOS ROMAN During your visit today, we recorded the following information about you: Mai Granger RN 12/04/2017 11:18 AM Signed AMB ROOMING INTAKE FLOWSHEET DATA Risk Screening Do you have concerns about personal safety or safety in the home?: No Pain Pain Score: (0-7) Pain Location: Hip-Right Description: Aching Duration Amount of Time: 3 Duration Units: Months Frequency: Intermittent Intervention: Medication, Therapeutic techniques-CPRP Patient presents with: New Patient: right hip pain, REF: ChristyMikael Pearson xray 08-24-17, MRI 12-02-17 Pt. presents with 3 month hx of right groin and hip pain, which radiates down into knee. He states this began shortly after hemorrhoidectomy. He had several sessions of PT, but did not help much so he stopped going. He has pain only with ambulation. He is emphatic that he does not want more surgery. He has been taking Aleve 220 mg ANDquot;2-3 times a week when I want to walk farther.ANDquot; he states it helps some, but does not take pain away. Juancarlos Roman DO 12/04/2017 11:18 AM Signed Evan Pearson PA-C [address] [facility] [address] Mr. Tucker is a 82 year old male that presents today complaining of hip problems on the right side for the last 3 months. 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 The pain is described as chronic and intermittent located in the groin. ALLERGIES: Amoxicillin; Hydrochlorothiazide; Omeprazole; Penicillins; Sulfa (Sulfonamide Antibiotics); Zetia [Ezetimibe] MEDICATIONS: Current Outpatient Prescriptions: naproxen sodium (ALEVE) 220 mg tablet Take 220 mg by mouth twice daily with meals. aspirin, enteric coated (ASPIRIN, ENTERIC COATED) 81 mg EC tablet Take 81 mg by mouth once daily. spironolactone (ALDACTONE) 25 mg tablet Take 1 tablet by mouth once daily. metoprolol tartrate, short acting, (LOPRESSOR) 100 mg tablet Take 1 tablet by mouth twice daily. amLODIPine (NORVASC) 10 mg tablet Take 1 tablet by mouth once daily. lisinopril 40 mg tablet Take 1 tablet by mouth once daily. simvastatin (ZOCOR) 20 mg tablet Take 1 tablet by mouth daily at bedtime. No current facility-administered medications for this visit. 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 [facility] - see scanned documents - Essential hypertension, benign - Heart attack (HCC) - Hemorrhage of rectum and anus - High degree atrioventricular block 02/10/2015 [facility] - see scanned documents - Other abnormal granulation tissue - Other and unspecified hyperlipidemia - Personal history of colonic polyps Colon polyps - 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 [facility] - see scanned documents - Small bowel obstruction 02/10/2015 [facility] - see scanned document SURGICAL HISTORY: PAST SURGICAL HISTORY Procedure Laterality Date - CABG (4) VEIN GRAFTS ANDamp; ARTERIAL GRAFT(S) 03/2012 [facility] - COLONOSCOP W/ OR W/O [facility] Colonoscopy 2001,2002,2003,2004, - COLONOSCOP W/ OR W/O [facility] 01-18-16 - COLONOSCOPY ABLATION POLYP 01/19/09 Repeat in 1-9553-[facility] mid transverse/granulation tissue rectal anastomosis - HEART SURGERY HX - INSERT CATH,ART,PERCUT,SHORTTERM 02-01-15 - LAP COLECTMY W/ILEUM/ILEOCOL 02-01-15 - LAP, SURG ENTEROLYSIS 02-01-15 - LAP, SURG MOBIL SPLENIC FL DUR PTL COLECTOMY 02-01-15 - PART REMOVAL COLON W ANASTOMOSIS Hemicolectomy - PICC LINE 02/12/2015 [facility] - see scanned documents - REM LESION NEC,HND,SCAL 1.1-2.0CM 11/07/09 Exc. posterior neck len cyst FAMILY HISTORY: FAMILY HISTORY Problem Relation Age of Onset - Coronary Artery Disease Father with [place] - Prostate Cancer Brother - Coronary Artery Disease Brother - Heart Sister heart valve replacement - Thyroid Sister - Thyroid Sister - Thyroid Sister - None Sister - None Sister - None Sister SOCIAL HISTORY: Social History Marital status: Spouse name: Years of education: Number of children: Social History Main Topics Smoking status: Never Smoker Smokeless status: Never Used Alcohol use: No Drug use: No PHYSICAL ASSESSMENT: The Pt walks with a limping gait B/l LE have Nl Alignment The Left hip reveals no hip flexion contracture, 0-100 degrees of flexion, Internal Rotation to 20 degrees in flexion and external rotation to 45 degrees in flexion. Abduction to 45 degrees and adduction to 20 degrees. There is no pain with palpation over the ischial tuberosity or the greater trochanter. The Right hip reveals no hip flexion contracture, 0-100 degrees of flexion, Internal Rotation to 15 degrees in flexion and external rotation to 35 degrees in flexion. Abduction to 35 degrees and adduction to 20 degrees. There is no pain with palpation over the ischial tuberosity or the greater trochanter. Right Knee Reveals No Effusion. 0-135 degrees of motion. No Abnormal Anterior, Posterior, Varus or Valgus Laxity. No Medial or Lateral Joint Line Tenderness. No pain with Direct Palpation over the Distal Medial or Lateral Femoral Condyles. Negative Donna's Test. No pain with Patellar compression. 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 Assess possible treatment options including surgery, intra- articular injection, therapy and medication. Patient states that he did some physical therapy and feels that it helped slightly and he continues to do home exercises. He is not interested in pursuing surgical options at this time. 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 We discussed having a intra articular injection of the hip 1-2 weeks before he begins planting season. He will call in to arrange at the time. He takes Advil 220 mg about 3 times a week, I informed her that he could take to twice a day as needed as long as he is not having any side effects. Juancarlos Roman DO Referring Provider: Evan PEARSON (SRIDEVI) [[id number]] Allergies As of Date: 12/04/2017 Noted Allergy Reaction AMOXICILLIN 03/13/2006 Comments: hives HYDROCHLOROTHIAZIDE 12/01/2014 14 - Other: See Comments Comments: hypokalemia OMEPRAZOLE 06/30/2012 4 - Hives PENICILLINS 03/13/2006 Comments: unknown SULFA (SULFONAMIDE ANTIBIOTICS) 03/13/2006 Comments: unknown ZETIA (EZETIMIBE) 03/13/2006 Comments: muscle pain Date Reviewed: 12/04/2017 Reviewed by: Mai Granger RN - Fully Assessed Reason for Visit: New Patient [172] Cmt: right hip pain, REF: Pietro Pearson xray 08-24-17, MRI 12-02-17 Primary Visit Diagnosis:Arthritis of right hip [M16.11] Order(s):INJECTION HIP ARTHROGRAM,ANESTH [[id number]] Order #: [id number] Prescriptions as of 12/04/2017 Sig: NAPROXEN SODIUM 220 MG TABLET Take 220 mg by mouth twice da* ASPIRIN 81 MG TABLET,DELAYED * Take 81 mg by mouth once celeste* SPIRONOLACTONE 25 MG TABLET Take 1 tablet by mouth once d* METOPROLOL TARTRATE 100 MG TA* Take 1 tablet by mouth twice * AMLODIPINE 10 MG TABLET Take 1 tablet by mouth once d* LISINOPRIL 40 MG TABLET Take 1 tablet by mouth once d* SIMVASTATIN 20 MG TABLET Take 1 tablet by mouth daily * Medication notes this encounter METOPROLOL TARTRATE 100 MG TABLET >> Mai Granger RN 12/04/2017 9:51 AM >> MAI GRANGER RN Fri Dec 04, 2017 9:51 AM States takes 0.5 tablet twice a day Problem List As Of Date 12/04/2017 Noted Resolved HYPOPOTASSEMIA [E87.6] INVALID FOR* BENIGN HYPERTENSION [I10] HYPERLIPIDEMIA NEC/NOS [E78.5] LUMBOSACRAL NEURITIS NOS [KTN9530] INVALID FOR* 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80] INVALID FOR* Right leg pain [M79.604] INVALID FOR* Encounter Status:Closed by JUANCARLOS ROMAN DO, V on 12/04/17 PROGRESS Observed: 12/04/2017 Status: COMPLETED Source: [place] 9:52 AM [facility] REPOSITORY HNO ID: [id number] Author: Mai Granger RN Service: (none) Author Type: (none) Type: Progress Notes Filed: 12/04/2017 11:18 AM Note Text: AMB ROOMING INTAKE FLOWSHEET DATA Risk Screening Do you have concerns about personal safety or safety in the home?: No Pain Pain Score: (0-7) Pain Location: Hip-Right Description: Aching Duration Amount of Time: 3 Duration Units: Months Frequency: Intermittent Intervention: Medication, Therapeutic techniques-CPRP Patient presents with: New Patient: right hip pain, REF: Pietro Pearson xray 08-24-17, MRI 12-02-17 Pt. presents with 3 month hx of right groin and hip pain, which radiates down into knee. He states this began shortly after hemorrhoidectomy. He had several sessions of PT, but did not help much so he stopped going. He has pain only with ambulation. He is emphatic that he does not want more surgery. He has been taking Aleve 220 mg 2-3 times a week when I want to walk farther. he states it helps some, but does not take pain away. MRI HIP WO IVCON RT Observed: 12/02/2017 Status: F Source: [place] 11:38 AM [facility] REPOSITORY * * *Final Report* * * DATE OF EXAM: Dec 02 2017 11:38AM WR 0207 - MRI HIP WO IVCON RT / PROCEDURE REASON: Pain in right hip * * * * Physician Interpretation * * * * MRI Pelvis and MRI Right Hip INDICATION: mri rt hip pain rt hip and groin .. COMPARISON: Radiograph of the pelvis and right hip dated 08/24/2017. TECHNIQUE: Multiplanar PD, T1 and T2 weighted images. RESULT: Right hip: Marked degenerative arthritis with large areas of full-thickness chondral loss in the femoral head and acetabulum superiorly. Subchondral cysts in the lateral acetabulum and mild subchondral marrow reactive changes in the femoral head. No evidence of a fracture or avascular necrosis. Degeneration and degenerative tearing of the anterior and superior acetabular labrum. Moderate joint effusion/synovitis. Marginal osteophytes.. Large ncczy-is-uigp images of the left hip are unremarkable. Evaluation of articular cartilage and labrum is limited. Sacroiliac joints: Within normal limits. Pubic symphysis: Mild degenerative arthritis. Tendons: Within normal limits including the iliopsoas, hamstring, gluteal and rectus femoris tendons. Muscles: Within normal limits. Bone Marrow: Within normal limits. No fractures or marrow replacing lesions. Prostate hypertrophy. IMPRESSION: 1. ADVANCED RIGHT HIP OSTEOARTHRITIS DEGENERATIVE TEARING OF THE LABRUM AND MODERATE JOINT EFFUSION/SYNOVITIS. 2. NO EVIDENCE OF AN ACUTE FRACTURE OR AVASCULAR PROCESS. Security System Analyst: [facility] Transcribe Date/Time: Dec 02 2017 1:37P Dictated by : MARY ANN NICOLAS MD This examination was interpreted and the report reviewed and electronically signed by: MARY ANN NICOLAS MD on Dec 02 2017 1:54PM EST [id number] PROGRESS Observed: 12/02/2017 Status: COMPLETED Source: [place] 11:11 AM [facility] REPOSITORY HNO ID: [id number] Author: Meg Atwood Service: (none) Author Type: (none) Type: Progress Notes Filed: 12/02/2017 11:13 AM Note Text: Radiology Service Progress Note PATIENT NAME: Nilam Tucker Jr. DATE OF SERVICE: December 02, 2017 TIME: 11:12 AM PATIENT IDENTITY VERIFICATION COMPLETED USING TWO (2) METHODS: Patient confirmed name verbally and Date of . PATIENT GENDER DATA: Male PATIENT RELEVANT IMPLANT DATA REVIEWED: Yes RADIOLOGY DEPARTMENT: MR; Exam(s) Completed: Lower MSK: Hip, right PERIPHERAL IV DATA: Not applicable SIGNED BY: Meg Atwood December 02, 2017 11:12 AM PROGRESS Observed: 11/17/2017 Status: COMPLETED Source: [place] 2:32 PM [facility] REPOSITORY HNO ID: [id number] Author: Evan Polo-C) Michel Service: (none) Author Type: Physician Regional Retail Sales Manager Type: Progress Notes Filed: 11/17/2017 5:11 PM Note Text: 82 year old male with c/o pain in right inguinal area again today. 02/11, much less than previously. Distal thigh pain has improved. Still not able to cross leg. Has been walking on treadmill and stepped up pace today which felt better until he was done. Has been taking Aleve prn, less than once a day. 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 [facility] - see scanned documents - Essential hypertension, benign - Heart attack - Hemorrhage of rectum and anus - High degree atrioventricular block 02/10/2015 [facility] - see scanned documents - Other abnormal granulation tissue - Other and unspecified hyperlipidemia - Personal history of colonic polyps Colon polyps - 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 [facility] - see scanned documents - Small bowel obstruction 02/10/2015 [facility] - see scanned document PAST SURGICAL HISTORY Procedure Laterality Date - CABG (4) VEIN GRAFTS AND ARTERIAL GRAFT(S) 03/2012 [facility] - COLONOSCOP W/ OR W/O [facility] Colonoscopy 2001,2002,2003,2004, - COLONOSCOP W/ OR W/O [facility] 01-18-16 - COLONOSCOPY ABLATION POLYP 01/19/09 Repeat in 0-1517-Zwvyx mid transverse/granulation tissue rectal anastomosis - HEART SURGERY HX - INSERT CATH,ART,PERCUT,SHORTTERM 02-01-15 - LAP COLECTMY W/ILEUM/ILEOCOL 02-01-15 - LAP, SURG ENTEROLYSIS 02-01-15 - LAP, SURG MOBIL SPLENIC FL DUR PTL COLECTOMY 02-01-15 - PART REMOVAL COLON W ANASTOMOSIS Hemicolectomy - PICC LINE 02/12/2015 [facility] - see scanned documents - REM LESION NEC,HND,SCAL 1.1-2.0CM 11/07/09 Exc. posterior neck len cyst Social History Marital status: Spouse name: Years of education: Number of children: Social History Main Topics Smoking status: Never Smoker Smokeless status: Never Used Alcohol use: No Drug use: No ACTIVE PROBLEM LIST Hypopotassemia Essential Hypertension, Benign Other and Unspecified Hyperlipidemia Thoracic Or Lumbosacral Neuritis Or Radiculitis, Unspecified Variants of Migraine, Not Elsewhere Classified, With Intractable Migraine, So Stated, Without Mention of Status Migrainosus Spinal Stenosis, Lumbar Region, Without Neurogenic Claudication Benign Neoplasm of Colon RECTAL BLEEDING (MELENA-578.1) GRANULATION TISSUE, ABNORMAL POSTOPERATIVE Sebaceous Cyst Ashd (Arteriosclerotic Heart Disease) Bph Associated With Nocturia History of Adenomatous Polyp of Colon Colon Cancer (Hcc) Hemorrhoids, Internal, With Bleeding Adductor Tendonitis Right Leg Pain Current Outpatient Prescriptions: aspirin, enteric coated (ASPIRIN, ENTERIC COATED) 81 mg EC tablet Take 81 mg by mouth once daily. Disp: Rfl: spironolactone (ALDACTONE) 25 mg tablet Take 1 tablet by mouth once daily. Disp: 30 tablet Rfl: 11 metoprolol tartrate, short acting, (LOPRESSOR) 100 mg tablet Take 1 tablet by mouth twice daily. Disp: 60 tablet Rfl: 5 amLODIPine (NORVASC) 10 mg tablet Take 1 tablet by mouth once daily. Disp: Rfl: 0 lisinopril 40 mg tablet Take 1 tablet by mouth once daily. Disp: 30 tablet Rfl: 0 simvastatin (ZOCOR) 20 mg tablet Take 1 tablet by mouth daily at bedtime. Disp: 30 tablet Rfl: 12 No current facility-administered medications for this visit. ADULT PREVNAR-13 due on 2001 TETANUS due on 07/05/2013 EXAM: BP 124/68 Pulse 80 Resp 20 Pleasant older man, overweight in no acute distress. Alert and oriented all spheres. Normal affect and cognition. Speech normal. No deficits to learning or comprehension. Skin warm, dry, pink to lips and nailbeds. Normal turgor. Respirations regular and unlabored. Extrem: no clubbing, cyanosis, edema. Extremities are warm and pink with prompt capillary refill. Continues with limp on right. OMT: myofascial release with improvement ASSESSMENT/PLAN: 1. Pain in right hip - ICD9: 719.45, ICD10: M25.551 Concerned with chronicity Will proceed with MRI, ortho consult. - MRI HIP WO IVCON RT - CONSULT TO ORTHO/PEDIATRICS Evan Pearson PA-C PROGRESS Observed: 11/11/2017 Status: COMPLETED Source: [place] 9:51 AM [facility] REPOSITORY HNO ID: [id number] Author: Kalee (Pt) Cliff Service: (none) Author Type: Physical Therapist Type: Progress Notes Filed: 11/11/2017 9:53 AM Note Text: [facility] PHYSICAL THERAPY DISCONTINUANCE OF CARE Plan of Care Period: Start of Care Date: 09/03/17 Last Visit Date:09/17/2017 Therapy Program: Patient did not return for follow up care as planned. Please refer to last visit note for interventions provided for this episode of care. Assessment: Unable to formally assess goal achievement due to non-compliance with therapy plan of care. Reason for Discontinuation of Care: Patient has not returned to therapy or scheduled additional follow-up appointments. Kalee Giles, PT XR KNEE 2V AP/LAT Observed: 11/10/2017 Status: F Source: [facility] 10:16 AM [facility] REPOSITORY * * *Final Report* * * DATE OF EXAM: Nov 10 2017 10:16AM WOX [id number] - XR KNEE 2V AP/LAT RT / PROCEDURE REASON: Pain in right knee * * * * Physician Interpretation * * * * HISTORY: 82-YEAR-OLD MALE WITH Pain in right knee . Anterior right knee pain x several months without injury TECHNIQUE: XR KNEE 2V AP/LAT RT Laterality: RIGHT Number of different views (projections): 2 COMPARISON: None RESULT: Mild medial compartment joint space narrowing tiny osteophytes. Tiny osteophytes laterally. Patellofemoral joint is maintained in the lateral view. Enthesophyte on the patella tendon insertion quadriceps and patellar tendons. No joint effusion. No fracture. Faint arterial calcifications are present. IMPRESSION: MILD DEGENERATIVE CHANGES OF THE RIGHT KNEE. Security System Analyst: [facility] Transcribe Date/Time: Nov 10 2017 11:30A Dictated by : DERRICK CISNEROS MD This examination was interpreted and the report reviewed and electronically signed by: DERRICK CISNEROS MD on Nov 10 2017 11:31AM EST [id number] PROGRESS Observed: 11/10/2017 Status: COMPLETED Source: [place] 10:00 AM [facility] REPOSITORY HNO ID: [id number] Author: Marni Estrada (Rt) Domi Duque Service: (none) Author Type: Liquid Floor And Wall Applier Type: Progress Notes Filed: 11/10/2017 10:09 AM Note Text: Radiology Service Progress Note PATIENT NAME: Nilam Tucker Jr. DATE OF SERVICE: November 10, 2017 TIME: 10:00 AM PATIENT IDENTITY VERIFICATION COMPLETED USING TWO (2) METHODS: Patient confirmed name verbally and Date of . PATIENT GENDER DATA: Male PATIENT RELEVANT IMPLANT DATA REVIEWED: Not Applicable RADIOLOGY DEPARTMENT: General X-ray: Exam(s) Completed: Lower Extremity X-Ray(s): Knee, AP / LAT Right and Wt. Bearing: PERIPHERAL IV DATA: Not applicable SIGNED BY: RT Amie November 10, 2017 10:00 AM PROGRESS Observed: 11/10/2017 Status: COMPLETED Source: [place] 9:34 AM [facility] REPOSITORY HNO ID: [id number] Author: Evan Wright (MarybethC) Michel Service: (none) Author Type: Physician Regional Retail Sales Manager Type: Progress Notes Filed: 11/10/2017 1:28 PM Note Text: 82 year old male with c/o recurrent right thigh pain: less pain in upper/ groin area, now more in lower medial leg/ knee. Not taking anything for pain. Venous dopplar was negative. Prednisone taper made a big improvement. Right knee stiff. New in last 6 weeks. 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 [facility] - see scanned documents - Essential hypertension, benign - Heart attack - Hemorrhage of rectum and anus - High degree atrioventricular block 02/10/2015 [facility] - see scanned documents - Other abnormal granulation tissue - Other and unspecified hyperlipidemia - Personal history of colonic polyps Colon polyps - 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 [facility] - see scanned documents - Small bowel obstruction 02/10/2015 [facility] - see scanned document PAST SURGICAL HISTORY Procedure Laterality Date - CABG (4) VEIN GRAFTS AND ARTERIAL GRAFT(S) 03/2012 [facility] - COLONOSCOP W/ OR W/O [facility] Colonoscopy 2001,2002,2003,2004, - COLONOSCOP W/ OR W/O [facility] 01-18-16 - COLONOSCOPY ABLATION POLYP 01/19/09 Repeat in 3-9039-Eassh mid transverse/granulation tissue rectal anastomosis - HEART SURGERY HX - INSERT CATH,ART,PERCUT,SHORTTERM 02-01-15 - LAP COLECTMY W/ILEUM/ILEOCOL 02-01-15 - LAP, SURG ENTEROLYSIS 02-01-15 - LAP, SURG MOBIL SPLENIC FL DUR PTL COLECTOMY 02-01-15 - PART REMOVAL COLON W ANASTOMOSIS Hemicolectomy - PICC LINE 02/12/2015 [facility] - see scanned documents - REM LESION NEC,HND,SCAL 1.1-2.0CM 11/07/09 Exc. posterior neck len cyst Social History Marital status: Spouse name: Years of education: Number of children: Social History Main Topics Smoking status: Never Smoker Smokeless status: Never Used Alcohol use: No Drug use: No ACTIVE PROBLEM LIST Hypopotassemia Essential Hypertension, Benign Other and Unspecified Hyperlipidemia Thoracic Or Lumbosacral Neuritis Or Radiculitis, Unspecified Variants of Migraine, Not Elsewhere Classified, With Intractable Migraine, So Stated, Without Mention of Status Migrainosus Spinal Stenosis, Lumbar Region, Without Neurogenic Claudication Benign Neoplasm of Colon RECTAL BLEEDING (MELENA-578.1) GRANULATION TISSUE, ABNORMAL POSTOPERATIVE Sebaceous Cyst Ashd (Arteriosclerotic Heart Disease) Bph Associated With Nocturia History of Adenomatous Polyp of Colon Colon Cancer (Hcc) Hemorrhoids, Internal, With Bleeding Adductor Tendonitis Right Leg Pain Current Outpatient Prescriptions: predniSONE (DELTASONE) 10 mg tablet Take 4 tabs daily for 3 days, then 2 tabs daily for 3 days, then 1 tab daily for 3 days with food. Disp: 21 tablet Rfl: 0 aspirin, enteric coated (ASPIRIN, ENTERIC COATED) 81 mg EC tablet Take 81 mg by mouth once daily. Disp: Rfl: spironolactone (ALDACTONE) 25 mg tablet Take 1 tablet by mouth once daily. Disp: 30 tablet Rfl: 11 metoprolol tartrate, short acting, (LOPRESSOR) 100 mg tablet Take 1 tablet by mouth twice daily. Disp: 60 tablet Rfl: 5 amLODIPine (NORVASC) 10 mg tablet Take 1 tablet by mouth once daily. Disp: Rfl: 0 lisinopril 40 mg tablet Take 1 tablet by mouth once daily. Disp: 30 tablet Rfl: 0 simvastatin (ZOCOR) 20 mg tablet Take 1 tablet by mouth daily at bedtime. Disp: 30 tablet Rfl: 12 No current facility-administered medications for this visit. ADULT PREVNAR-13 due on 2001 TETANUS due on 07/05/2013 EXAM: BP 128/60 Pulse 64 Temp 36.8 ?C (98.2 ?F) (Tympanic) Resp 20 Pleasant overweight older man in no acute distress. Alert and oriented all spheres. Normal affect and cognition. Speech normal. No deficits to learning or comprehension. Skin warm, dry, pink to lips and nailbeds. Normal turgor. Respirations regular and unlabored. Right leg with pain on exam more distally along medial thigh than previous. He is nontender in the groin. He is tender along the muscular areas in the quadriceps from the middle portion radiating into the medial portion of his knee. There is no effusion in the knee. No popliteal swelling. He does have tenderness with range of motion past about 120? of flexion. Has full extension. No pain with varus or valgus stress or laxity. Extrem: no clubbing, cyanosis, edema. Extremities are warm and pink with prompt capillary refill. OMT: Myofascial release to trigger points in the right thigh with marked improvement in pain and range of motion again. Patient states he still has mild discomfort in the right groin mild discomfort in the medial right thigh and mild discomfort in the knee. Able to walk again without limp. ASSESSMENT/PLAN: 1. Acute pain of right knee - ICD9: 719.46, ICD10: M25.561 (primary diagnosis) We'll x-ray right knee just for peace of mind. I expressed the patient again concerned that I see him several times and pain is recurrent. He does seem to get better with myofascial techniques. I do have some questions as to whether there might be a complication neurologically from spine or possibly torn tendon. Patient has no back pain. Intermittently he is squatting bending and doing normal activities without much trouble. - XR KNEE LIMITED 2V AP/LAT RT - Consider MRI. 2. Somatic dysfunction of lower extremity - ICD9: 739.6, ICD10: M99.06 Follow-up in one week for recheck Evan Pearson PA-C CNCO Observed: 11/09/2017 Status: COMPLETED Source: [place] 12:00 AM [facility] [place] REPOSITORY Letter Text Jose Pearson PA-C [facility] Nilam Tucker Jr. [address] #: [id number] 11/09/2017 Dear Mr. Tucker, I have received the results of your recent tests. The results of your leg DVT ultrasound tests were either normal or within the acceptable range. We can discuss this at your next visit. Please do not hesitate to contact me with any questions. Sincerely, Jose Pearson [facility]-C [facility] electronically signed to expedite mailing PROGRESS Observed: 11/03/2017 Status: COMPLETED Source: [place] 11:25 AM [facility] REPOSITORY HNO ID: [id number] Author: Evan Pearson Service: (none) Author Type: Physician Regional Retail Sales Manager Type: Progress Notes Filed: 11/03/2017 5:41 PM Note Text: 82 year old male with hx colon cancer, HTN, CAD s/p CABG, spinal stenosis c/o here for follow-up on complaint of right leg. Right upper leg pain is still present, but improved from last occurrence. Hasn't really completely resolved. Pain medial thigh to right knee. Started about 2 weeks ago. Pain is worse with activity. Certain positions (in bed, makes the discomfort worse). Once and awhile, he will take an aleve -- which does help after awhile. Hasn't noticed swelling or erythema. denies numbness, tingling. Some loss of strength r/t pain. Notes today pain seemed to start after his hemorrhoid surgery. 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 Has been shoveling and standing. 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 [facility] - see scanned documents - Essential hypertension, benign - Heart attack - Hemorrhage of rectum and anus - High degree atrioventricular block 02/10/2015 [facility] - see scanned documents - Other abnormal granulation tissue - Other and unspecified hyperlipidemia - Personal history of colonic polyps Colon polyps - 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 [facility] - see scanned documents - Small bowel obstruction 02/10/2015 [facility] - see scanned document PAST SURGICAL HISTORY Procedure Laterality Date - CABG (4) VEIN GRAFTS AND ARTERIAL GRAFT(S) 03/2012 [facility] - COLONOSCOP W/ OR W/O [facility] Colonoscopy 2001,2002,2003,2004, - COLONOSCOP W/ OR W/O [facility] 01-18-16 - COLONOSCOPY ABLATION POLYP 01/19/09 Repeat in [id number]-[id number] mid transverse/granulation tissue rectal anastomosis - HEART SURGERY HX - INSERT CATH,ART,PERCUT,SHORTTERM 02-01-15 - LAP COLECTMY W/ILEUM/ILEOCOL 02-01-15 - LAP, SURG ENTEROLYSIS 02-01-15 - LAP, SURG MOBIL SPLENIC FL DUR PTL COLECTOMY 02-01-15 - PART REMOVAL COLON W ANASTOMOSIS Hemicolectomy - PICC LINE 02/12/2015 [facility] - see scanned documents - REM LESION NEC,HND,SCAL 1.1-2.0CM 11/07/09 Exc. posterior neck len cyst Social History Marital status: Spouse name: Years of education: Number of children: Social History Main Topics Smoking status: Never Smoker Smokeless status: Never Used Alcohol use: No Drug use: No ACTIVE PROBLEM LIST Hypopotassemia Essential Hypertension, Benign Other and Unspecified Hyperlipidemia Thoracic Or Lumbosacral Neuritis Or Radiculitis, Unspecified Variants of Migraine, Not Elsewhere Classified, With Intractable Migraine, So Stated, Without Mention of Status Migrainosus Spinal Stenosis, Lumbar Region, Without Neurogenic Claudication Benign Neoplasm of Colon RECTAL BLEEDING (MELENA-578.1) GRANULATION TISSUE, ABNORMAL POSTOPERATIVE Sebaceous Cyst Ashd (Arteriosclerotic Heart Disease) Bph Associated With Nocturia History of Adenomatous Polyp of Colon Colon Cancer (Hcc) Hemorrhoids, Internal, With Bleeding Adductor Tendonitis Right Leg Pain Current Outpatient Prescriptions: aspirin, enteric coated (ASPIRIN, ENTERIC COATED) 81 mg EC tablet Take 81 mg by mouth once daily. Disp: Rfl: spironolactone (ALDACTONE) 25 mg tablet Take 1 tablet by mouth once daily. Disp: 30 tablet Rfl: 11 metoprolol tartrate, short acting, (LOPRESSOR) 100 mg tablet Take 1 tablet by mouth twice daily. Disp: 60 tablet Rfl: 5 amLODIPine (NORVASC) 10 mg tablet Take 1 tablet by mouth once daily. Disp: Rfl: 0 lisinopril 40 mg tablet Take 1 tablet by mouth once daily. Disp: 30 tablet Rfl: 0 simvastatin (ZOCOR) 20 mg tablet Take 1 tablet by mouth daily at bedtime. Disp: 30 tablet Rfl: 12 No current facility-administered medications for this visit. ADULT PREVNAR-13 due on 2001 TETANUS due on 07/05/2013 EXAM: BP 130/64 Pulse 80 Temp 36.8 ?C (98.2 ?F) (Tympanic) Resp 16 Wt 92.5 kg (204 lb) BMI 34.48 kg/m2 Pleasant older man in no acute distress. Alert and oriented all spheres. Normal affect and cognition. Speech normal. No deficits to learning or comprehension. Skin warm, dry, pink to lips and nailbeds. Normal turgor. Respirations regular and unlabored. Chest CTA. HRRR without murmur or gallop. Extrem: no clubbing, cyanosis, edema. Extremities are warm and pink with prompt capillary refill. Tender over muscular bands in upper medial right thigh. No palpable cords. Knee without effusion. Flexion to 100 degrees with stiffness. Full extension. Negative SLR. OMT with risks reviewed: myofascial release along adductor and rectus femoris medial with marked improvement again. Able to walk without limp. ASSESSMENT/PLAN: 1. Pain of right thigh - ICD9: 729.5, ICD10: M79.651 (primary diagnosis) Persistent over a month. Followed surgery. Want to make sure there is no DVT though this is low on my suspicion. Seems muscular. No back pain. May need to check MRI with hx colon cancer. Has prior diagnosis lumbar stenosis but has been asymptomatic: no back pain or hx claudication. - US LEG VEIN DVT UNL VAS LAB 2. Acute pain of right knee - ICD9: 719.46, ICD10: M25.561 Likely from limping. Declines medication M Kyle Pearson, PA-C CNOV Observed: 11/03/2017 Status: COMPLETED Source: [place] 10:40 AM [facility] REPOSITORY Office Visit (FAMPWS) NILAM TUCKER JR. ([id number]) 1935 M NFR Date Time Provider Department 11/03/17 10:40 AM Evan PEARSON) [facility] During your visit today, we recorded the following information about you: Temperature Pulse Respiration Blood pressure 98.2 degrees 80/minute 16/minute 130/64 Weight 92.5 kg Evan Pearson PA-C 11/03/2017 5:41 PM Signed 82 year old male with hx colon cancer, HTN, CAD s/p CABG, spinal stenosis c/o here for follow-up on complaint of right leg. Right upper leg pain is still present, but improved from last occurrence. Hasn't really completely resolved. Pain medial thigh to right knee. Started about 2 weeks ago. Pain is worse with activity. Certain positions (in bed, makes the discomfort worse). Once and awhile, he will take an aleve -- which does help after awhile. Hasn't noticed swelling or erythema. denies numbness, tingling. Some loss of strength r/t pain. Notes today pain seemed to start after his hemorrhoid surgery. 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 Has been shoveling and standing. 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 [facility] - see scanned documents - Essential hypertension, benign - Heart attack - Hemorrhage of rectum and anus - High degree atrioventricular block 02/10/2015 [facility] - see scanned documents - Other abnormal granulation tissue - Other and unspecified hyperlipidemia - Personal history of colonic polyps Colon polyps - 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 [facility] - see scanned documents - Small bowel obstruction 02/10/2015 [facility] - see scanned document PAST SURGICAL HISTORY Procedure Laterality Date - CABG (4) VEIN GRAFTS ANDamp; ARTERIAL GRAFT(S) 03/2012 [facility] - COLONOSCOP W/ OR W/O [facility] Colonoscopy 2001,2002,2003,2004, - COLONOSCOP W/ OR W/O [facility] 01-18-16 - COLONOSCOPY ABLATION POLYP 01/19/09 Repeat in [id number]-[place] mid transverse/granulation tissue rectal anastomosis - HEART SURGERY HX - INSERT CATH,ART,PERCUT,SHORTTERM 02-01-15 - LAP COLECTMY W/ILEUM/ILEOCOL 02-01-15 - LAP, SURG ENTEROLYSIS 02-01-15 - LAP, SURG MOBIL SPLENIC FL DUR PTL COLECTOMY 02-01-15 - PART REMOVAL COLON W ANASTOMOSIS Hemicolectomy - PICC LINE 02/12/2015 [facility] - see scanned documents - REM LESION NEC,HND,SCAL 1.1-2.0CM 11/07/09 Exc. posterior neck len cyst Social History Marital status: Spouse name: Years of education: Number of children: Social History Main Topics Smoking status: Never Smoker Smokeless status: Never Used Alcohol use: No Drug use: No ACTIVE PROBLEM LIST Hypopotassemia Essential Hypertension, Benign Other and Unspecified Hyperlipidemia Thoracic Or Lumbosacral Neuritis Or Radiculitis, Unspecified Variants of Migraine, Not Elsewhere Classified, With Intractable Migraine, So Stated, Without Mention of Status Migrainosus Spinal Stenosis, Lumbar Region, Without Neurogenic Claudication Benign Neoplasm of Colon RECTAL BLEEDING (MELENA-578.1) GRANULATION TISSUE, ABNORMAL POSTOPERATIVE Sebaceous Cyst Ashd (Arteriosclerotic Heart Disease) Bph Associated With Nocturia History of Adenomatous Polyp of Colon Colon Cancer (Hcc) Hemorrhoids, Internal, With Bleeding Adductor Tendonitis Right Leg Pain Current Outpatient Prescriptions: aspirin, enteric coated (ASPIRIN, ENTERIC COATED) 81 mg EC tablet Take 81 mg by mouth once daily. Disp: Rfl: spironolactone (ALDACTONE) 25 mg tablet Take 1 tablet by mouth once daily. Disp: 30 tablet Rfl: 11 metoprolol tartrate, short acting, (LOPRESSOR) 100 mg tablet Take 1 tablet by mouth twice daily. Disp: 60 tablet Rfl: 5 amLODIPine (NORVASC) 10 mg tablet Take 1 tablet by mouth once daily. Disp: Rfl: 0 lisinopril 40 mg tablet Take 1 tablet by mouth once daily. Disp: 30 tablet Rfl: 0 simvastatin (ZOCOR) 20 mg tablet Take 1 tablet by mouth daily at bedtime. Disp: 30 tablet Rfl: 12 No current facility-administered medications for this visit. ADULT PREVNAR-13 due on 2001 TETANUS due on 07/05/2013 EXAM: BP 130/64 Pulse 80 Temp 36.8 ?C (98.2 ?F) (Tympanic) Resp 16 Wt 92.5 kg (204 lb) BMI 34.48 kg/m2 Pleasant older man in no acute distress. Alert and oriented all spheres. Normal affect and cognition. Speech normal. No deficits to learning or comprehension. Skin warm, dry, pink to lips and nailbeds. Normal turgor. Respirations regular and unlabored. Chest CTA. HRRR without murmur or gallop. Extrem: no clubbing, cyanosis, edema. Extremities are warm and pink with prompt capillary refill. Tender over muscular bands in upper medial right thigh. No palpable cords. Knee without effusion. Flexion to 100 degrees with stiffness. Full extension. Negative SLR. OMT with risks reviewed: myofascial release along adductor and rectus femoris medial with marked improvement again. Able to walk without limp. ASSESSMENT/PLAN: 1. Pain of right thigh - ICD9: 729.5, ICD10: M79.651 (primary diagnosis) Persistent over a month. Followed surgery. Want to make sure there is no DVT though this is low on my suspicion. Seems muscular. No back pain. May need to check MRI with hx colon cancer. Has prior diagnosis lumbar stenosis but has been asymptomatic: no back pain or hx claudication. - US LEG VEIN DVT UNL VAS LAB 2. Acute pain of right knee - ICD9: 719.46, ICD10: M25.561 Likely from limping. Declines medication M Kyle Pearson PA-C Referring Provider: SELF [200] Allergies As of Date: 11/03/2017 Noted Allergy Reaction AMOXICILLIN 03/13/2006 Comments: hives HYDROCHLOROTHIAZIDE 12/01/2014 14 - Other: See Comments Comments: hypokalemia OMEPRAZOLE 06/30/2012 4 - Hives PENICILLINS 03/13/2006 Comments: unknown SULFA (SULFONAMIDE ANTIBIOTICS) 03/13/2006 Comments: unknown ZETIA (EZETIMIBE) 03/13/2006 Comments: muscle pain Date Reviewed: 11/03/2017 Reviewed by: Enedelia Ngo LPN - Fully Assessed Reason for Visit: Pain [78] Cmt: upper right leg when walking in groin area but recently started in right knee for about 3 weeks Primary Visit Diagnosis:Pain of right thigh [M79.651] Other Visit Diagnosis:Acute pain of right knee [M25.561] Order(s):predniSONE (DELTASONE) 10 mg tabletTake 4 tabs daily for 3 days, then 2 tabs daily for 3 days, then 1 tab daily for 3 days with food.Disp: 21 tabletRfl: 0 LEG VEIN DVT UNL VAS LAB [[id number]] Order #: [id number] FUTURE Prescriptions as of 11/03/2017 Sig: ASPIRIN 81 MG TABLET,DELAYED * Take 81 mg by mouth once celeste* SPIRONOLACTONE 25 MG TABLET Take 1 tablet by mouth once d* METOPROLOL TARTRATE 100 MG TA* Take 1 tablet by mouth twice * AMLODIPINE 10 MG TABLET Take 1 tablet by mouth once d* LISINOPRIL 40 MG TABLET Take 1 tablet by mouth once d* SIMVASTATIN 20 MG TABLET Take 1 tablet by mouth daily * PREDNISONE 10 MG TABLET Take 4 tabs daily for 3 days,* Problem List As Of Date 11/03/2017 Noted Resolved HYPOPOTASSEMIA [E87.6] INVALID FOR* BENIGN HYPERTENSION [I10] HYPERLIPIDEMIA NEC/NOS [E78.5] LUMBOSACRAL NEURITIS NOS [[id number]] INVALID FOR* 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80] INVALID FOR* Right leg pain [M79.604] INVALID FOR* Prescriptions ordered this encounter Disp Refills Start End PREDNISONE 10 MG TABLET 21 t* 0 11/03/2017 11/12/2017 Sig: Take 4 tabs daily for 3 days, then 2 tabs daily for 3 days, then 1 tab daily for 3 days with food. Encounter Status:Closed by Evan PEARSON PA-C on 11/03/17 PROGRESS Observed: 09/17/2017 Status: COMPLETED Source: [place] 12:55 PM [facility] [place] REPOSITORY O ID: [id number] Author: Kalee (Pt) Cliff Service: (none) Author Type: Physical Therapist Type: Progress Notes Filed: 09/17/2017 12:58 PM Note Text: Episode Visit Count: 3 Therapist That Will Oversee The Plan Of Care: Kalee Giles Start of Care Date: 09/03/17 Onset Date: 07/04/17 Plan of Care Certification Date: 09/03/17 Patient Identified by Name and Date of : Yes REHABILITATION AND SPORTS THERAPY PHYSICAL THERAPY TREATMENT NOTE ASSESSMENT: Nilam Tucker Jr. demonstrated improvements in upright posture and pain in anterior right hip by end of session. Poor compliance to home exs and emphasized the importance of supine lying exs of adductor and hip flexor stretching to perform 2x/day The patient will continue to benefit from continued skilled physical therapy for progression of exs PLAN FOR NEXT VISIT: Will progress Yamil test as able. Increase time with scifit stepper. SUBJECTIVE: Pt notes that he saw Jose Pearson again who did some work on musle in inner thigh with some temporary improvement. admits that he has not been very good about doing his exs Pain Score: 6/10 Pain Location: Groin - Right Description: Sharp Frequency: Intermittent Post Treatment Pain Score: 4 Post Treatment Pain Description: Aching OBJECTIVE MEASURES WITH LEVEL OF FUNCTION: Hip Observations R Hip Palpation Tenderness: ( tightness and tenderness in region of hip flexor) TREATMENT: Therapeutic Exercise: 1: hip adductor stretch with leg extended on bed 10 sec hold x5 cues needed for form 2: scifit seat 10 for 2 min. 3: standing hip extension 2x10 4: seated blue rep band hip abduction 2x10 5: isometric hip adduction 2x10 seated 6: Yamil stretch with right leg on bed 30 sec x3 7: lacrosse ball supine to region of hip flexor 8: standing hip abduction 2x10 9: prone lying with stretch but difficulty getting in and out of position Skilled Intervention: Patient was educated in proper exercise technique and purpose for exercises. Skilled judgment was provided in selection of appropriate interventions. Correct performance of therapeutic exercises was facilitated with verbal and visual cuing. Encouraged compliance in performance of supine exs Billing: [facility]: Therapeutic Exercise ([id number]): 1:1 time: 40 minutes (3 units: 38-52 mins) Total time: 40 minutes Kalee Giles PT CNTHERAPY Observed: 09/17/2017 Status: COMPLETED Source: [place] 9:30 AM [facility] REPOSITORY OT/PT/Speech Visit (PTWS) NILAM TUCKER JR. ([id number]) 1935 M NFR Date Time Provider Department 09/17/17 9:30 AM KALEE GILES (PT) PTWS Date Time Provider Department Center 09/17/2017 9:30 AM [id number], LISA (PT) PTWS [facility] Reason for Visit: Physical Therapy [503] PT Discharge [752] Reason For Visit History Recorded Primary Visit Diagnosis:Right leg pain [M79.604] Other Visit Diagnosis:Adductor tendonitis [M65.80] Allergies As of Date: 09/17/2017 Noted Allergy Reaction AMOXICILLIN 03/13/2006 Comments: hives HYDROCHLOROTHIAZIDE 12/01/2014 14 - Other: See Comments Comments: hypokalemia OMEPRAZOLE 06/30/2012 4 - Hives PENICILLINS 03/13/2006 Comments: unknown SULFA (SULFONAMIDE ANTIBIOTICS) 03/13/2006 Comments: unknown ZETIA (EZETIMIBE) 03/13/2006 Comments: muscle pain Date Reviewed: 09/14/2017 Reviewed by: Enedelia Ngo LPN - Fully Assessed Prescriptions as of 09/17/2017 Sig: ASPIRIN 81 MG TABLET,DELAYED * Take 81 mg by mouth once celeste* SPIRONOLACTONE 25 MG TABLET Take 1 tablet by mouth once d* METOPROLOL TARTRATE 100 MG TA* Take 1 tablet by mouth twice * AMLODIPINE 10 MG TABLET Take 1 tablet by mouth once d* LISINOPRIL 40 MG TABLET Take 1 tablet by mouth once d* SIMVASTATIN 20 MG TABLET Take 1 tablet by mouth daily * Progress Notes: Kalee Giles, PT 09/17/2017 12:58 PM Signed Episode Visit Count: 3 Therapist That Will Oversee The Plan Of Care: Kalee Giles Start of Care Date: 09/03/17 Onset Date: 07/04/17 Plan of Care Certification Date: 09/03/17 Patient Identified by Name and Date of : Yes REHABILITATION AND SPORTS THERAPY PHYSICAL THERAPY TREATMENT NOTE ASSESSMENT: Nilma Tucker Jr. demonstrated improvements in upright posture and pain in anterior right hip by end of session. Poor compliance to home exs and emphasized the importance of supine lying exs of adductor and hip flexor stretching to perform 2x/day The patient will continue to benefit from continued skilled physical therapy for progression of exs PLAN FOR NEXT VISIT: Will progress Yamil test as able. Increase time with scifit stepper. SUBJECTIVE: Pt notes that he saw Jose Careyon again who did some work on musle in inner thigh with some temporary improvement. admits that he has not been very good about doing his exs Pain Score: 6/10 Pain Location: Groin - Right Description: Sharp Frequency: Intermittent Post Treatment Pain Score: 4 Post Treatment Pain Description: Aching OBJECTIVE MEASURES WITH LEVEL OF FUNCTION: Hip Observations R Hip Palpation Tenderness: ( tightness and tenderness in region of hip flexor) TREATMENT: Therapeutic Exercise: 1: hip adductor stretch with leg extended on bed 10 sec hold x5 cues needed for form 2: scifit seat 10 for 2 min. 3: standing hip extension 2x10 4: seated blue rep band hip abduction 2x10 5: isometric hip adduction 2x10 seated 6: Yamil stretch with right leg on bed 30 sec x3 7: lacrosse ball supine to region of hip flexor 8: standing hip abduction 2x10 9: prone lying with stretch but difficulty getting in and out of position Skilled Intervention: Patient was educated in proper exercise technique and purpose for exercises. Skilled judgment was provided in selection of appropriate interventions. Correct performance of therapeutic exercises was facilitated with verbal and visual cuing. Encouraged compliance in performance of supine exs Billing: [facility]: Therapeutic Exercise ([id number]): 1:1 time: 40 minutes (3 units: 38-52 mins) Total time: 40 minutes Kalee Giles, PT Kalee Giles PT 11/11/2017 9:53 AM Signed [facility] REHABILITATION AND SPORTS THERAPY PHYSICAL THERAPY DISCONTINUANCE OF CARE Plan of Care Period: Start of Care Date: 09/03/17 Last Visit Date:09/17/2017 Therapy Program: Patient did not return for follow up care as planned. Please refer to last visit note for interventions provided for this episode of care. Assessment: Unable to formally assess goal achievement due to non-compliance with therapy plan of care. Reason for Discontinuation of Care: Patient has not returned to therapy or scheduled additional follow-up appointments. Kalee Giles PT ALLERGIES ALLERGIES DATE TYPE / NAME / CODE REACTION SEVERITY SOURCE CODE 09/24/2018 Drug Penicillins/[id number](R Unknown Unknown [place] Allergy/41 XNORM) [facility] [id number]([facility]) Repository 09/24/2018 Drug Sulfa (Sulfonamide Unknown Unknown [place] Allergy/41 Antibiotics)/[id number]( [facility] [id number]( RXNORM) [facility]) Repository 09/24/2018 Drug prednisone/[id number](RX Unknown SV [place] Allergy/41 NORM) [facility] [id number]([facility]) Repository 09/24/2018 Drug omeprazole/[id number](RX Hives Unknown [place] Allergy/41 NORM) [facility] [id number][facility] Repository 09/24/2018 Drug amoxicillin/[id number](R Hives Unknown Abhay Allergy/41 XNORM) [facility] [id number]( [facility]) Repository 09/24/2018 Drug ezetimibe/[id number](RXN Other Unknown Abhay Allergy/41 ORM) Community [id number]([facility]) Repository 12/01/2014 DRUG HYDROCHLOROTHIAZIDE OTHER: SEE [facility] [place] [facility]/41 Clinic Main [id number]( [place] [facility]) Repository 06/30/2012 DRUG OMEPRAZOLE HIVES [place] [facility]/41 Clinic Main [id number]( [place] [facility]) Repository 03/13/2006 DRUG AMOXICILLIN [place] [facility]/41 Clinic Main [id number]( [place] [facility]) Repository 03/13/2006 Drug PENICILLINS [place] Class/4195 Clinic Main [id number]([facility] [place] ED [facility]) Repository 03/13/2006 Drug SULFA (SULFONAMIDE [place] Class/4195 ANTIBIOTICS) Clinic Main [id number]([facility] [place] [facility]) Repository 03/13/2006 DRUG EZETIMIBE [facility]/41 Clinic Main [id number]( [place] [facility]) Repository ENCOUNTERS ENCOUNTERS ADMIT/DISCHARGE ACCOUNT ADMITTING ENCOUNTER LOCATION SOURCE NUMBER CLASS 10/18/2018/10/19/19 [id number] Ambulatory [address] Main [place] Repository 09/24/2018/09/24/20 [id number] Ambulatory [address] Main [place] Repository 09/24/2018/09/24/20 [id number] Ambulatory BMSBuilding:Zachary Blank 19 [address] Repository 09/20/2018 [id number] Ambulatory [facility] ing:LAB Repository 09/02/2018/09/03/20 [id number] Ambulatory [address] Main [place] Repository 09/01/2018/09/02/20 [id number] [address] [address] [place] Repository 08/12/2018/08/13/20 [id number] Ambulatory [address] [place] Repository 08/03/2018/08/05/20 [id number] Ambulatory [address] [place] Repository 03/30/2018 [id number] Ambulatory [facility] ing:RAD Repository 03/26/2018/03/26/20 [id number] Ambulatory BMSBuilding:Zachary Blank 18 MS.[facility] Repository 03/25/2018 [id number] Ambulatory BMSBuilding:Zachary Blank MS.[facility] Repository 03/25/2018 [id number] Ambulatory BMSBuilding:Zachary Blank MS.[facility] Repository 03/24/2018 [id number] Ambulatory [facility] ing:LAB Repository 01/26/2018/01/27/20 [id number] Ambulatory [address] [place] Repository 01/05/2018/01/07/20 [id number] Ambulatory [address] [place] Repository 01/05/2018 [id number] Ambulatory [facility] ing:LAB Repository 12/04/2017/12/05/19 [id number] Ambulatory [facility] [address] [place] Repository 12/02/2017/12/02/19 [id number] Ambulatory [place] [address] [facility] [address] [place] Repository 11/17/2017/11/17/19 [id number] Ambulatory [facility] [place] Repository 11/10/2017/11/10/19 [id number] Ambulatory [facility] [place] Repository 11/10/2017/11/12/19 [id number] Ambulatory [facility] [place] Repository 11/06/2017/11/06/19 [id number] Ambulatory [facility] [place] Repository 11/03/2017/11/03/19 [id number] Ambulatory [facility] [place] Repository 09/17/2017/09/23/20 [id number] Ambulatory [address] [place] Repository PAYERS PAYERS ENCOUNTER GUARANTOR PAYER SUBSCRIBER SOURCE 09/24/2018 NILAM TUCKER Primary NILAM Blank Jr.12[address] TR Insurance:MEDICARE JrMikael: [address] PART A [facility] [id number] Hospital [address]Gop: [phone]) Number: Repository [phone] () [id number] Date:2018-09-01 09/24/2018 Secondary NILAM Blank Insurance:[place]: Community Number: [id number] Hospital [id number] Repository Date:6829-99-70JQ [facility] [place], [place] [address]IY: 09/24/2018 Tertiary NOT GIVENUNK [place] Insurance:SELF PAY [facility] Number: Effective Repository Date:2018-09-23 09/20/2018 NILAM TUCKER Primary NILAM Blank Jr.1235 TR Insurance:MEDICARE Jr.: [address] PART A [facility] [id number] Hospital [address]Wmi: (419) Number: Repository [phone] () [id number] Date:2018-09-20 09/20/2018 Secondary NILAM Blank Insurance:AARPPolicy Jr.: Community Number: [id number] Hospital [id number] Repository Date:5481-70-99FZ [address], [place] [address]DO: 09/20/2018 Tertiary NOT GIVENUNK Abhay Insurance:SELF PAY [facility] Number: Effective Repository Date:2018-09-20 03/30/2018 NILAM TUCKER Primary NILAM Blank Jr.1235 TR Insurance:MEDICARE Jr.: [address] PART A [facility] [id number] Hospital [address]Mdq: [phone]) Number: Repository [phone] () [id number] Date:2018-03-23 03/30/2018 Secondary NILAM TUCKER [place] Insurance:AARPPolicy .: Community Number: [id number] Hospital [id number] Repository Date:7042-42-85MM [facility] [address]ZO[place], [place] [address]YL: 03/30/2018 Tertiary NOT GIVENUNK [place] Insurance:SELF PAY [facility] Number: Effective Repository Date:2018-03-23 03/26/2018 NILAM TUCKER Primary NILAM Blank Jr.[address] [place] Insurance:MEDICARE Jr.: [address] PART A [facility] [id number] Number: Repository [id number]: 419) [id number] [phone] () Date:2017-09-13 03/26/2018 Secondary NILAM TUCKER [place] Insurance:AARPPolicy Jr.: Community Number: [id number] Hospital [id number] Repository Date:4765-30-65BR [address]TULJHD, [place] [address]KE: 03/26/2018 Tertiary NOT GIVENUNK [place] Insurance:SELF PAY [facility] Number: Effective Repository Date:2018-01-04 03/25/2018 NILAM TUCKER Primary NILAM Blank Jr.1235 TR Insurance:MEDICARE Jr.: [address] PART A [facility] [id number] Hospital [address]Fab: [phone]) Number: Repository [phone] () [id number] Date:2018-03-25 03/25/2018 Secondary NILAM GARRETT [place] Insurance:AARPPolicy Jr.: Community Number: [id number] Hospital [id number] Repository Date:3370-65-11CD [address]LLFVP, [place] [address]NL: 03/25/2018 Tertiary NOT GIVENUNK [place] Insurance:SELF PAY [facility] Number: Effective Repository Date:2018-03-25 03/25/2018 NILAM TUCKER Primary NILAM Blank Jr.1235 TR Insurance:MEDICARE Jr.: [address] PART A [facility] [id number] Hospital 55293Pbk: (419) Number: Repository [phone] () [id number] Date:2018-03-25 03/25/2018 Secondary NILAM TUCKER [place] Insurance:BINGPPolicy Jr.: Community Number: [id number] Hospital [id number] Repository Date:2053-28-41YX [address]ZSXMSKQ, [place] [address]PR: 03/25/2018 Tertiary NOT GIVENUNK Abhay Insurance:[facility]LF [facility]Y [facility] Number: Effective Repository Date:2018-03-25 03/24/2018 NILAM TUCKER Primary NILAM Blank Jr.1235 TR Insurance:MEDICARE Jr.: Community [address] [place] [address] PART A [facility] [id number] Hospital [address]Smi: [phone]) Number: Repository [phone] () [id number] Date:2018-03-24 03/24/2018 Secondary NILAM Blank Insurance:AARPPolicy Jr.: Community Number: [id number] Hospital [id number] Repository Date:8319-07-80IS [facility] [place]QFIU[place]C, [place] [address]WZ: 03/24/2018 Tertiary NOT GIVENUNK [place] Insurance:SELF PAY [facility] Number: Effective Repository Date:2018-03-24 01/05/2018 NILAM TUCKER Primary NILAM Blank Jr.1235 [place] Insurance:MEDICARE Jr.: Community [address] [place] [address] PART A [facility] [id number] Hospital [address]Jfx: [phone]) Number: Repository [phone] () [id number] Date:2018-01-05 01/05/2018 Secondary NILAM Blank Insurance:AARPPolicy .: Community Number: [id number] Hospital [id number] Repository Date:9891-45-28PO [facility] [address]RNLVEPH, [place] [address]VJ: 01/05/2018 Tertiary NOT GIVENUNK [place] Insurance:SELF PAY [facility] Number: Effective Repository Date:2018-01-05
== END ==
PROVIDERS: Family Provider Family Medicine; PCP Family Medicine; Referring Provider Physician Assistant Medical; Visit Provider Physician Assistant Medical
DX: E78.5 Hyperlipidemia, unspecified (principal)
CPT/HCPCS: 36415; 80061; 80076

== ENCOUNTER → 2019-03-08 09:25 | Outpatient (CLI) | payer MEDICARE, OTHER, SELFPAY ==
[2018-11-29 14:56] VITALS: BMI 35.6
--- NOTE | 2019-03-08 09:30 | RAD_ITS ---
PROCEDURE: Fluoroscopic guided Hip Injection DATE: March 08, 2019. INDICATION: Male, 83 years old. Chronic hip pain. PHYSICIAN: Stanley Erickson M.D. MEDICATIONS: 80 mg of Kenalog and 3 cc of 1% lidocaine. 2% lidocaine administered subcutaneously for local anesthesia. ACCESS SITE: Right hip. NEEDLE: 22-gauge spinal needle. FLUOROSCOPY TIME (if supplied): (0:51) minutes/seconds FINDINGS: The risks, benefits, and alternatives to the procedure were explained to the patient. The specific risks of bleeding, infection, and neurovascular injury were detailed and accepted. Witnessed informed consent was obtained. A 22-gauge spinal needle was positioned under radiographic fluoroscopic localization. Approximately 2 cc of Isovue-300 instilled for localization purposes. Medication was then injected. The patient tolerated the procedure well without any immediate complications. RAD/Inj/Asp [place] Jt Should/Hip/Knee IMPRESSION: 1. Successful fluoroscopic guided hip injection. Electronically Signed: Stanley Erickson, at 12:56 EDT , Service support ,
== END ==
PROVIDERS: Family Provider Family Medicine; PCP Family Medicine
DX: M16.11 Unilateral primary osteoarthritis, right hip (principal)
CPT/HCPCS: 20610; 77002; Q9967

== ENCOUNTER → 2019-04-19 08:20 | Outpatient (CLI) | payer MEDICARE, OTHER, SELFPAY ==
[2019-04-12 07:49] VITALS: BMI 34.3
[2019-04-19 09:06] LABS: AST(SGOT) 25 U/L (15-37); Alanine Aminotransfer ALT/SGPT 48 U/L (16-61); Albumin, Serum 3.8 g/dL (3.2-5.0); Alkaline Phosphatase 39 U/L (45-117); Bilirubin, Direct 0.19 mg/dL (0.00-0.30); Cholesterol 167 mg/dL (200); Globulin 3.9 g/dL (2.2-4.2); High Density Lipoprotein 68 mg/dL; Protein, Total 7.7 g/dL (6.4-8.2); Triglycerides 163 mg/dL; Very Low Density Lipoprotein 33 mg/dL (5-40)
== END ==
PROVIDERS: Family Provider Family Medicine; PCP Family Medicine; Referring Provider Internal Medicine Cardiovascular Disease; Visit Provider Internal Medicine Cardiovascular Disease
DX: E78.2 Mixed hyperlipidemia (principal)
CPT/HCPCS: 36415; 80061; 80076

== ENCOUNTER → 2019-06-15 16:26 | Outpatient (CLI) | payer MEDICARE, OTHER, SELFPAY ==
[2019-06-15 15:20] VITALS: BMI 34.4
[2019-06-15 17:04] LABS: Absolute Lymphocyte Count 1.34 X10^3/uL (0.83-4.51); Absolute Neutrophil Count 6.2 X10^3/uL (2.0-7.7); Basophil# 0.06 X10^3/uL; Basophil% 0.7 % (0-1); Eosinophil# 0.07 X10^3/uL; Eosinophils% 0.8 % (0-5); Hematocrit 48.1 % (40-54); Hemoglobin 15.5 g/dL (13.0-16.5); Lymphocyte # 1.34 X10^3/ul (4.0); Lymphocyte % 15.6 % (19-41); Mean Corp Hgb Conc 32.2 g/dL (32-36); Mean Corpuscular Hgb 30.9 pg (27.0-32.0); Mean Corpuscular Volume 95.8 fL (80-94); Mean Platelet Vol. 10.3 fl (6.2-12.0); Monocyte# 0.82 X10^3/uL; Monocyte% 9.5 % (0-10); NRBC Flagged by Analyzer 0 % (0-5); Neutrophil # 6.22 X10^3/uL (2.7-7.7); Neutrophil % 72.5 % (47-70); Platelet Count 252 K/mm3 (150-450); RBC Distribution Width CV 15.2 % (11.6-14.6); RBC Distribution Width SD 53.5 fl (35.1-43.9); Red Blood Count 5.02 M/mm3 (4.6-6.2); White Blood Count 8.6 K/mm3 (4.4-11.0)
[2019-06-15 17:26] LABS: Anion Gap 8 (5-15); BUN 26 mg/dL (7-18); BUN/Creat Ratio 16.4 RATIO (10-20); Calcium,Total 9.3 mg/dL (8.5-10.1); Chloride 109 mmol/L (98-107); Creatinine, Serum 1.59 mg/dL (0.70-1.30); EST Glomerular Filtration Rate 44 mL/min (>60); Est Glom Filt Rate - Afr Amer 54 mL/min (>60); Glucose 100 mg/dL (74-106); Potassium 4.5 mmol/L (3.5-5.1); Sodium Level 141 mmol/L (136-145)
[2019-06-15 17:30] LABS: BNP,B-Type NATRIURETIC PEPTIDE 101.7 pg/mL (0-100)
== END ==
PROVIDERS: Family Provider Family Medicine; PCP Family Medicine; Referring Provider Physician Assistant Medical; Visit Provider Physician Assistant Medical
DX: R06.09 Other forms of dyspnea (principal); R53.83 Other fatigue; I10 Essential (primary) hypertension; I25.5 Ischemic cardiomyopathy; I25.10 Atherosclerotic heart disease of native coronary artery without angina pectoris; E78.2 Mixed hyperlipidemia
CPT/HCPCS: 36415; 80048; 83880; 85025

== ENCOUNTER → 2019-07-04 06:14 | Outpatient (CLI) | payer MEDICARE, OTHER, SELFPAY ==
[2019-06-15 15:20] VITALS: BMI 34.4
--- NOTE | 2019-07-04 06:17 | ECHOCS_ITS ---
Reason For Study: Dyspnea/SOB Procedure This was a 2D Doppler, Color Flow transthoracic echocardiogram. Exam performed in department. Left Ventricle Normal LV size. The estimated ejection fraction is 40 %. Mild to moderate segmental systolic dysfunction (see wall motion). Stage 1 diastolic dysfunction. Mid-anteroseptal : Hypokinetic. Septal [place] : Hypokinetic. Mid-Inferior: Hypokinetic. Infero-Basal: Hypokinetic. Basal inferoseptal: Hypokinetic. Right Ventricle Normal RV size. Normal systolic function. Atria Normal left atrium. Normal right atrium. Mitral Valve Normal mitral valve. Tricuspid Valve Normal tricuspid valve. Aortic Valve Trisinus/trileaflet aortic valve. Mild focal aortic valve thickening. Mild (1+) aortic valve insufficiency. Pulmonic Valve Normal pulmonic valve. Great Vessels Mildly dilated aortic root. The pulmonary artery is normal size. Normal inferior vena cava. Pericardium/Pleural No pericardial effusion. Medication Performed a rapid injection of agitated mix of 9 cc saline and 1cc air to assess for atrial septal defect. Diluted definity 3ml given slow IV push to enhance endocardial definition. MMode/2D Measurements & Calculations LVIDd: 5.4 cm IVSd: 1.2 cm Ao root diam: 3.8 cm LVIDs: 4.3 cm LVPWd: 0.96 cm RVDd: 3.3 cm FS: 19.3 % LAV(MOD-bp): 52.9 ml LVAd ap4: 31.7 cm2 SV(MOD-sp4): 49.4 ml LAV(MOD-bp) Indexed: 27.1 ml/m2 EDV(MOD-sp4): 109.2 ml LAV(MOD-sp2): 48.4 ml EDV(sp4-el): 109.7 ml LAV(MOD-sp4): 56.0 ml LVAs ap4: 22.6 cm2 ESV(MOD-sp4): 59.8 ml ESV(sp4-el): 57.4 ml EF(MOD-sp4): 45.3 % EF(sp4-el): 47.7 % SV(sp4-el): 52.3 ml LA A4 area: 18.3 cm2 LA dimension(2D): 4.1 cm RA A4 area: 12.8 cm2 Doppler Measurements & Calculations MV E max paulo: 37.5 cm/sec Lat Peak E' Paulo: 6.4 cm/sec Med Peak E' Paulo: 5.6 cm/sec MV A max paulo: 66.1 cm/sec E/E' lat: 5.9 E/E' med: 6.7 MV E/A: 0.57 Ao V2 max: 144.9 cm/sec AI max paulo: 372.2 cm/sec LV V1 max: 110.3 cm/sec Ao max P.4 mmHg AI max P.4 mmHg LV V1 max P.9 mmHg Ao V2 mean: 100.0 cm/sec Ao mean P.4 mmHg AI dec slope: 189.5 cm/sec2 Ao V2 VTI: 25.0 cm AI P1/2t: 575.3 msec PA V2 max: 104.0 cm/sec TR max paulo: 170.3 cm/sec TR max P.6 mmHg Interpretation Summary Normal LV size. The estimated ejection fraction is 40 %. Mild to moderate segmental systolic dysfunction (see wall motion). Stage 1 diastolic dysfunction. Contrast injection was performed. Compared to previous study, the left ventricular systolic function is the same.. Ordering Physician: Gregoria Guerrero Referring Physician: Hector Jain Performed By: Lay Patricio RDCS, RVT
--- NOTE | 2019-07-04 17:40 | STRESSREP ---
Stress Test Report Exercise myocardial perfusion stress test. 83-year-old man with a history of coronary artery disease and fatigue. Medications aspirin, spinal lactone, lisinopril, amlodipine, metoprolol. Stress protocol: Resting EKG demonstrates normal sinus rhythm with a rate of 88 bpm right bundle branch block is noted. Resting blood pressures 156/78 mmHg. The patient exercised according to regular [place] protocol for total duration of 3 minutes and 30 seconds. The maximum heart rate attained was 146 bpm which was 105% maximum predicted heart rate the maximum workload was 5.2 metabolic equivalents. The patient maintained a right bundle branch block pattern throughout. At rest there were no ST or T wave changes no suggest ischemia peak exercise no EKG changes were noted suggest ischemia. The resting blood pressures 156/78 final blood pressures 174/82. No clinical angina was noted the test was terminated due to dyspnea. Myocardial perfusion protocol. 12.0 mCi of technetium 99 sestamibi was injected at rest. The patient exercised according to regular [place] protocol for total duration of 3 minutes and 30 seconds at peak exercise 36.0 mCi of technetium 99m sestamibi was injected stress images were obtained stress and rest images were reconstructed and compared in the short axis vertical and horizontal long axis. Gated images were also obtained PACS Perfusion SPECT analysis: Review of the images demonstrate normal uptake of tracer noted in all areas of the myocardium. The resting images similarly demonstrate normal uptake of tracer noted in all areas of the myocardium. No areas of reversibility are noted suggest ischemia no previous infarct is noted. Gated SPECT analysis: The gated ejection fraction is noted to be 48%. Conclusion: Normal exercise myocardial perfusion stress test at a low to moderate workload. Preserved ejection fraction.
== END ==
PROVIDERS: Family Provider Family Medicine; PCP Family Medicine; Referring Provider Internal Medicine Cardiovascular Disease; Visit Provider Internal Medicine Cardiovascular Disease
DX: I25.10 Atherosclerotic heart disease of native coronary artery without angina pectoris (principal); I25.5 Ischemic cardiomyopathy; I10 Essential (primary) hypertension; E78.2 Mixed hyperlipidemia; R06.09 Other forms of dyspnea; R53.83 Other fatigue
CPT/HCPCS: 78452; 93017; 93306; A9500; Q9957; A4216; C8929

== ENCOUNTER → 2019-07-27 09:14 | Outpatient (CLI) | payer MEDICARE, OTHER, SELFPAY ==
[2019-07-15 10:20] VITALS: BMI 34.3
--- NOTE | 2019-07-27 09:19 | RAD_ITS ---
STUDY: X-RAY - LUMBAR SPINE REASON FOR EXAM: Male, 84 years old. Radiculopathy. TECHNIQUE: 5 view(s) of the lumbar spine were obtained. COMPARISON: None FINDINGS: Normal lumbar lordosis. There is no substantial scoliosis. There is a normal alignment of the vertebrae. There is multilevel endplate spondylosis of the lumbar vertebrae. There is multi-level degenerative disc disease with multi-level disc space narrowing. There is no demonstrated fracture. There is no demonstrated spondylolysis of the pars interarticulares. There is multilevel facet hypertrophy, more severe at L4-5 and L5-S1. There is atherosclerotic calcification of the abdominal aorta without a demonstrated aneurysm. RAD/L/S Spine Min 4 Views IMPRESSION: Multilevel spondylosis/degenerative disease with no acute fracture, spondylolisthesis or pars defect. Electronically Signed: Jeannie Woods MD at 0:38 EDT , Service support ,
== END ==
PROVIDERS: Family Provider Family Medicine; PCP Family Medicine; Referring Provider Anesthesiology Pain Medicine; Visit Provider Anesthesiology Pain Medicine
DX: M54.17 Radiculopathy, lumbosacral region (principal); M51.37 Other intervertebral disc degeneration, lumbosacral region
CPT/HCPCS: 72110

== ENCOUNTER 2019-12-22 05:25 | Day surgery (SDC) | payer MEDICARE, OTHER, SELFPAY ==
[2019-12-19 09:14] VITALS: BMI 34.1
--- NOTE | 2019-12-19 09:39 | HP_ITS ---
Intake Vital Signs 12/19/19 Height 5 ft 5 in 12/19/19 Weight: 205 lb 12/19/19 BMI 34.1 12/19/19 BP 132/67 H 12/19/19 Blood Pressure Location Rt brachial 12/19/19 Position Sitting 12/19/19 Respiration 18 12/19/19 BMI 36.0 Intake Visit Reasons: Rectal Bleeding Chief Complaint: F/u for colon cancer. 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 Is patient in pain?: No Allergies amoxicillin Allergy (Verified 12/19/19 09:14) Hives omeprazole Allergy (Verified 12/19/19 09:14) Hives Penicillins Allergy (Verified 12/19/19 09:14) Unknown Sulfa (Sulfonamide Antibiotics) Allergy (Verified 12/19/19 09:14) Unknown prednisone Adverse Reaction (Severe, Verified 12/19/19 09:14) Unknown ezetimibe [From Zetia] Adverse Reaction (Verified 12/19/19 09:14) Other Medications Aspirin [Aspir-Low] 81 mg PO DAILY 05/13/17 [History Confirmed 12/19/19] spironolactone 50 mg tablet 50 mg PO QDAY #90 tab 12/13/18 [Rx Confirmed 12/19/19] lisinopril 40 mg tablet 40 mg PO QDAY #90 tab 03/14/19 [Rx Confirmed 12/19/19] amlodipine 10 mg tablet 10 mg PO DAILY #90 tab 04/12/19 [Rx Confirmed 12/19/19] metoprolol tartrate 25 mg tablet 12.5 mg PO BID #90 tab 04/12/19 [Rx Confirmed 12/19/19] simvastatin 20 mg tablet 20 mg PO QHS #90 tab 04/12/19 [Rx Confirmed 12/19/19] [facility] Medical History Right BBB/left ant fasc block (Chronic) History of colon cancer, stage II (Chronic) Essential (primary) hypertension (Chronic) HLD (hyperlipidemia) (Chronic) 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) (Chronic) Atherosclerosis of coronary artery of [place] heart without angina pectoris (Chronic) Ischemic cardiomyopathy (Chronic) High degree atrioventricular block (Chronic 01/2015) BPH (benign prostatic hyperplasia) (Chronic) Cataract (lens) fragments in eye following cataract surgery, bilateral (Chronic) Obesity (Chronic) Conduction disorder of the heart (Inactive) Surgical History 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 Blaine Jain MD) Smoking Status: Never smoker alcohol intake: never substance use type: does not use caffeine: No HPI HPI HPI: NILAM TUCKER, is a 84 M who presents to the office today for HPI HPI Surgical H&P: Yes HPI: NILAM TUCKER, is a 84 M who presents to the office today for surgical consultation regarding escalated problems with bright red rectal bleeding and maroon stools. Primary care physician Dr. Hector Jain, III. 84-year-old gentleman. He has had a remote ileocolectomy for colon cancer. His most recent colonoscopy was January 2016.. Procedure was performed without difficulty. He had grade 3 hemorrhoids. There is a 5 mm polyp in the mid transverse colon. There was a patent ileocolonic anastomosis. The polyp was a sessile serrated polyp. He had an extensive surgical hemorrhoidectomy. He did have some postoperative bleeding. He had a prolonged recovery. He states that intermittently over a period of time he has had some very minimal rectal bleeding. More recently however last week he had 4 days in a row where he had bright red rectal bleeding but also he had some maroon-colored stools. He denies any abdominal pain. He does take a low-dose aspirin. He is not on any other blood thinners. Exam Const General: cooperative, healthy appearing, comfortable Chest Chest palpation & inspection: normal inspection of the chest Resp Effort & Inspection: normal respiratory effort Auscultation: clear to auscultation bilaterally Cardio Rate: regular rate Rhythm: regular rhythm GI Palpation: no hepatosplenomegaly Auscultation: normal bowel sounds Other: Minimal external hemorrhoidal tags. No obvious fissure. No obvious source of bleeding. Neuro General: alert, awake Extrem General: no calf tenderness bilaterally Assessment & Plan Problems 1. Rectal bleeding K62.5 2. History of colon cancer, stage II Z85.038 Plan Personal history of colon cancer and rectal bleeding with maroon stools as well. Most recent colonoscopy January 2016. I do recommend urgent scheduling for colonoscopy particularly in light of the coronavirus pandemic which may limit our ability to perform diagnostic procedures in the very near future. He has had an opportunity to ask and have questions answered. We will try to schedule and proceed as soon as possible. Dr. Ravi Santana is is oncologist. Dr. Hector Jain, III is a primary care physician. Blaine Jain M.D., F.A.C.S. Orders Orders: CBC-Complete Blood Cnt No Diff Today K62.5, Z85.038 Carcinoembryonic Antigen Today K62.5, Z85.038 Coding Level of Care Code Off vis,est,level 3 Diagnoses Rectal bleeding K62.5 History of colon cancer, stage II Z85.038 12/19/19 0939 <Electronically signed by Blaine barrera MD> Date _ Blaine Jain MD I have re-examined the patient. There are no clinical changes since date of exam.
[2019-12-22] VITALS (7 sets, daily range): BP systolic 105–124; BP diastolic 64–71; PULSE 63–73; RESP 16–18; TEMP 36.5–36.8; O2SAT 94–98; BMI 34.2
[2019-12-22] MEDS: Lactated Ringers 1,000 ML 100 ML IV (05:54)
--- NOTE | 2019-12-22 06:30 | COLBX_PTH ---
PATIENT: NILAM TUCKER Jr. LOC: EN U#:[id number] AGE/SX: 84/M ROOM: RE12/22/[address]: Dr. Blaine Jain MD : 1935 BED: DIS: 12/22/2019 SPEC #: [id number] RECD: 12/22/19 08:29 STATUS: RAVINDER HARDINJayden #: [id number] VICKIE: 12/22/19 06:[address]: Blaine Jain DEPT: SURGICAL PATHOLOGY RECD BY: Bay Benson ENTERED: 12/22/19 09:50 SP TYPE: COLON BX OTHR DR: Dr. Hector Jain III, MD Tissues: Rectum, NOS Procedures: Surgery Specimen Level IV HEADER OPERATION: Colonoscopy (MAC) PRE-OP DIAGNOSIS: Rectal bleeding TISSUE SUBMITTED: Rectal biopsy MICROSCOPIC DIAGNOSIS Rectum, biopsy: Minute fragments of benign colonic mucosa. No evidence of colitis. AM:kishore 3/20/20 MICROSCOPIC DESCRIPTION Slides are reviewed. GROSS DESCRIPTION Received in fixative is one container labeled with the patient's name and designated rectal biopsy. The specimen consists of two irregular fragments of light eason soft tissue that in aggregate measure 0.5 x 0.2 x 0.1 cm. The specimen is totally submitted in one cassette. / SJ:rg 12/22/19 TC:5 CPT: 83423
--- NOTE | 2019-12-22 06:47 | OP.COLON_ITS ---
Patient Name: George Solomon Procedure Date: 12/22/2019 6:20 AM Date of : 1935 Age: 84 Procedure: Colonoscopy Indications: Rectal bleeding Providers: Blaine Jain MD Medicines: See the Anesthesia note for documentation of the administered medications Patient Profile: Last Colonoscopy: 2015. Complications: No immediate complications. Procedure: Pre-Anesthesia Assessment: - Prior to the procedure, a History and Physical was performed, and patient medications and allergies were reviewed. The patient's tolerance of previous anesthesia was also reviewed. The risks and benefits of the procedure and the sedation options and risks were discussed with the patient. All questions were answered, and informed consent was obtained. Prior Anticoagulants: The patient has taken no previous anticoagulant or antiplatelet agents. ASA Grade Assessment: II - A patient with mild systemic disease. After reviewing the risks and benefits, the patient was deemed in satisfactory condition to undergo the procedure. After I obtained informed consent, the scope was passed under direct vision. Throughout the procedure, the patient's blood pressure, pulse, and oxygen saturations were monitored continuously. The Colonoscope was introduced through the anus and advanced to the ileocolonic anastomosis. The colonoscopy was performed without difficulty. The patient tolerated the procedure well. The quality of the bowel preparation was good. Ileocolonic anastomosis were photographed. Scope In: 6:30:38 AM Scope Withdrawal Time 0 hours 5 minutes 52 seconds Scope Out: 6:39:27 AM Total Procedure Duration Time 0 hours 8 minutes 49 seconds Findings: The digital rectal exam findings include anal stricture, non-thrombosed external hemorrhoids, non-thrombosed internal hemorrhoids and internal hemorrhoids (Grade I). There was evidence of a prior functional end-to-end ileo-colonic anastomosis in the proximal transverse colon. This was patent and was characterized by healthy appearing mucosa. There was evidence of a prior end-to-end colo-colonic anastomosis in the distal sigmoid colon. This was patent and was characterized by healthy appearing mucosa. A diffuse area of mildly erythematous mucosa was found in the rectum. This was biopsied with a cold forceps for histology. Impression: - Anal stricture, mild as result of previous hemorrhoidectomy, palpation possible however, non-thrombosed external hemorrhoids, non-thrombosed internal hemorrhoids and internal hemorrhoids (Grade I) found on digital rectal exam. - Patent functional end-to-end ileo-colonic anastomosis, characterized by healthy appearing mucosa. - Patent end-to-end colo-colonic anastomosis, characterized by healthy appearing mucosa. - Erythematous mucosa in the rectum. Biopsied. Recommendation: - Discharge patient to home. - Resume previous diet. - Continue present medications. - Telephone my office for pathology results in 1 week. - Repeat colonoscopy is not recommended due to current age (66 years or older) for surveillance. Procedure Code(s): --- Professional --- 23050, Colonoscopy, flexible; with biopsy, single or multiple Diagnosis Code(s): --- Professional --- K62.4, Stenosis of anus and rectum Z98.0, Intestinal bypass and anastomosis status K62.89, Other specified diseases of anus and rectum K62.5, Hemorrhage of anus and rectum K64.0, First degree hemorrhoids K64.4, Residual hemorrhoidal skin tags CPT copyright 2017 [employer] [place] [employer]. All rights reserved. The codes documented in this report are preliminary and upon caterpillar driver review may be revised to meet current compliance requirements. Blaine Jain MD 12/22/2019 6:47:26 AM This report has been signed electronically. Number of Addenda: 0 Note Initiated On: 12/22/2019 6:20 AM
--- NOTE | 2019-12-22 06:48 | OP.CCLET_ITS ---
12/22/2019 Hector Jain [address] [place] [address] Re : Colonoscopy procedure for George Solomon Dear Dr. Jain This procedure was performed on December. My impressions and recommendations are as follows: Impressions : - Anal stricture, mild as result of previous hemorrhoidectomy, palpation possible however, non-thrombosed external hemorrhoids, non-thrombosed internal hemorrhoids and internal hemorrhoids (Grade I) found on digital rectal exam. - Patent functional end-to-end ileo-colonic anastomosis, characterized by healthy appearing mucosa. - Patent end-to-end colo-colonic anastomosis, characterized by healthy appearing mucosa. - Erythematous mucosa in the rectum. Biopsied. Recommendations : - Discharge patient to home. - Resume previous diet. - Continue present medications. - Telephone my office for pathology results in 1 week. - Repeat colonoscopy is not recommended due to current age (66 years or older) for surveillance. My findings are described in the full procedure note, which is enclosed. If I can be of further assistance, please feel free to contact me at Doctor phone number(s): Work: . Sincerely, Blaine Jain MD 12/22/2019 6:47:26 AM This report has been signed electronically.
== END 2019-12-22 07:30 | disposition home or self-care (01) ==
LOC: EN 05:26 → AC 05:27
PROVIDERS: PCP Family Medicine; Referring Provider Family Medicine; Visit Provider Surgery
PROC: 0DJD8ZZ Inspection of Lower Intestinal Tract, Via Natural or Artificial Opening Endoscopic (ICD-10-PCS; CPT 45378; principal; 2019-12-22 06:25)
DX: K62.5 Hemorrhage of anus and rectum (principal); I25.10 Atherosclerotic heart disease of native coronary artery without angina pectoris; N40.0 Benign prostatic hyperplasia without lower urinary tract symptoms; I25.2 Old myocardial infarction; I25.5 Ischemic cardiomyopathy; E78.5 Hyperlipidemia, unspecified; E66.9 Obesity, unspecified; Z68.34 Body mass index [BMI] 34.0-34.9, adult; Z85.038 Personal history of other malignant neoplasm of large intestine; Z79.899 Other long term (current) drug therapy; Z79.82 Long term (current) use of aspirin; K62.4 Stenosis of anus and rectum; K64.0 First degree hemorrhoids; K64.4 Residual hemorrhoidal skin tags; Z98.0 Intestinal bypass and anastomosis status
CPT/HCPCS: 45380; 88305; J7120

== ENCOUNTER 2020-04-07 01:20 | Emergency (ER) | payer MEDICARE, OTHER, SELFPAY ==
[2019-12-22 05:44] VITALS: BMI 34.2
[2020-04-07 01:21] VITALS: BP 158/74; PULSE 82; PULSE 83; RESP 17; RESP 20; TEMP 36.7; O2SAT 95; O2SAT 99; BMI 34.9
--- NOTE | 2020-04-07 01:23 | ED.DCSUM_ITS ---
History of Present Illness Chief Complaint: Chest Pain Informant: Patient, Family Narrative: Patient presents emergency department for the evaluation of chest pain. It is been ongoing since 1730 hrs. (time of dictation ). He states that it is anterior chest on both sides of his sternum. He states it seemed to steadily get worse as the evening and night went on. He states it hurts very badly when he goes to move. Since arriving in the emergency department he states he is feeling better as long as he is laying still it does not hurt. He denies any DVT PE risk factors. He has taken aspirin today He has a history of coronary artery disease status post carotid bypass surgery in 2011 with a left internal mammary artery to the left anterior descending artery, saphenous vein graft to obtuse marginal branch, posterolateral vessel, and posterior descending artery. He also has a history of ischemic cardiomyopathy, hypertension, and hyperlipidemia. Patient underwent stress testing fall 2018. Stress test was negative for ischemia at a low to moderate workload. Echocardiogram demonstrated a similar ejection fraction at 40% as what was noted previously in 2014. Past Medical History - Allergies and Home Meds Allergies/Adverse Reactions: Allergies amoxicillin Allergy (Verified 12/22/19 05:36) Hives omeprazole Allergy (Verified 12/22/19 05:36) Hives Penicillins Allergy (Verified 12/22/19 05:36) Unknown Sulfa (Sulfonamide Antibiotics) Allergy (Verified 12/22/19 05:36) Unknown prednisone Adverse Reaction (Severe, Verified 12/22/19 05:36) Unknown ezetimibe [From Zetia] Adverse Reaction (Verified 12/22/19 05:36) Other MUSCLE PAIN Primary Care Physician: Hector Jain III, MD [Primary Care Provider] - Surgical History: coronary bypass surgery - 03/30/2012: [facility]: RUVALCABA to the LAD: SVG to the OM: SVG to the right PDA with sequential grafting to the right posterior lateral branch Smoking Status: Never smoker Review of Systems General: Denies: Chills, Fever, Sweats Eyes: Denies: Visual changes - bilaterally, Diplopia ENT: Denies: Rhinorrhea, Sore throat Cardiovascular: Reports: Chest pain. Denies: Palpitations Respiratory: Denies: Dyspnea, Cough, Dyspnea on exertion Gastrointestinal: Denies: Abdominal pain, Nausea, Vomiting, Diarrhea, Melena, Hematochezia Genitourinary: Denies: Dysuria, Hematuria, Frequency Musculoskeletal: Denies: Back pain, Extremity Pain Skin: Denies: Rash, Wounds Neurological: Denies: Headache, Weakness, Numbness Physical Exam Inital Vital Signs reviewed: Yes General: Well nourished, Well developed, No Acute Distress Head: Normocephalic, Atraumatic Eyes: Perrl, EOMI ENT: Moist mucous membranes, No rhinorrhea Neck: Supple, Nontender Cardiovascular: Regular rate, Regular rhythm, No murmurs Respiratory: No distress, CTA bilaterally, Chest tenderness - Right costochondral border, - - Patient's pain is re-created when I assist him in sitting up and when he attempts to turn Abdomen: Soft, Nontender, Nondistended, Normal bowel sounds Back: Nontender, Normal Inspection Extremities: Nontender, No edema Skin: Normal color, No rash Neurological: Alert, Oriented x3, Cranial nerves II-XII grossly intact, Normal Strength, Normal Sensation Psychological: Normal affect, Normal Mood Diagnostic/Tx/Re-eval Laboratory Last Values WBC 8.9 K/mm3 (4.4-11.0) 04/07/20 01:25 RBC 4.97 M/mm3 (4.6-6.2) 04/07/20 01:25 Hgb 14.9 g/dL (13.0-16.5) 04/07/20 01:25 Hct 48.5 % (40-54) 04/07/20 01:25 MCV 97.6 fL (80-94) H 04/07/20 01:25 MCH 30.0 pg (27.0-32.0) 04/07/20 01:25 MCHC 30.7 g/dL (32-36) L 04/07/20 01:25 RDW Std Deviation 54.7 fl (35.1-43.9) H 04/07/20 01:25 RDW Coeff of Nayeli 15.3 % (11.6-14.6) H 04/07/20 01:25 Plt Count 216 K/mm3 (150-450) 04/07/20 01:25 MPV 10.4 fl (6.2-12.0) 04/07/20 01:25 Immature Gran % (Auto) 0.800 % (0.0-0.9) 04/07/20 01:25 Neut % (Auto) 71.1 % (47-70) H 04/07/20 01:25 Lymph % (Auto) 15.2 % (19-41) L 04/07/20 01:25 [place] % (Auto) 10.3 % (0-10) H 04/07/20 01:25 Eos % (Auto) 1.8 % (0-5) 04/07/20 01:25 Baso % (Auto) 0.8 % (0-1) 04/07/20 01:25 Absolute Neuts (auto) 6.3 X10^3/uL (2.0-7.7) 04/07/20 01:25 Absolute Lymphs (auto) 1.35 X10^3/uL (0.83-4.51) 04/07/20 01:25 Nucleated RBC % 0 % (0-5) 04/07/20 01:25 Sodium 140 mmol/L (136-145) 04/07/20 01:25 Potassium 4.5 mmol/L (3.5-5.1) 04/07/20 01:25 Chloride 110 mmol/L (98-107) H 04/07/20 01:25 Carbon Dioxide 25.0 mmol/L (21.0-32.0) 04/07/20 01:25 Anion Gap 5 (5-15) 04/07/20 01:25 BUN 29 mg/dL (7-18) H 04/07/20 01:25 Creatinine 2.03 mg/dL (0.70-1.30) H 04/07/20 01:25 Estim Creat Clear Calc 23.98 ml/min 04/07/20 01:25 Est GFR (MDRD) Af Amer 41 mL/min (>60) L 04/07/20 01:25 Est GFR (MDRD) Non-Af 33 mL/min (>60) L 04/07/20 01:25 BUN/Creatinine Ratio 14.3 RATIO (10-20) 04/07/20 01:25 Glucose 120 mg/dL (74-106) H 04/07/20 01:25 Calcium 8.7 mg/dL (8.5-10.1) 04/07/20 01:25 Troponin I < 0.015 ng/mL (<0.045) 04/07/20 01:25 Clinical Impression(s) from Imaging Studies Chest X-Ray 04/07/20 01:36 IMPRESSION: No acute findings. Electronically Signed: Cruz Gant, at 2:38 EDT Tel , Service support , - EKG Initial EKG Interpretation: Sinus Rhythm - EKG demonstrates a sinus rhythm with a first- degree AV block and a right bundle branch block. - Medical Decision Making Patient received a dose of Toradol. Chest x-ray negative. Basic blood work was negative except for creatinine of 2. Looking back beginning of the year his creatinine was about 1.3. This was discussed with the patient and I advised early follow-up with his primary care physician. He is advised to drink plenty of water and stay hydrated. At this point his troponin is negative (greater than 6 hours of constant pain) and his pain is reproducible. It is most likely costal chondritis. We talked about Tylenol for pain and use of a pillow to help support the chest wall. Return if worsening or concerns follow-up with primary care next week ED Disposition - Plan for ED Patient: Disposition: Home or Assisted Living Diagnosis: Chest pain, Costochondritis, acute Instructions: ED CHEST PAIN [place] Referrals: Hector Jain III, MD [Primary Care Provider] - (within 1 week) Additional Instructions: As discussed your creatinine value today is 2. This is a significant change from the beginning of the year. Make sure you drink plenty of water to stay hydrated and please follow-up with your doctor within a week to discuss further evaluation. I would recommend Tylenol for pain and use of a pillow to help support the chest wall while moving.
--- NOTE | 2020-04-07 01:23 | ED.RN ---
CALLED FOR EKG PER RN REQUEST, PULLED OLD EKGS FOR
--- NOTE | 2020-04-07 01:36 | EKG12_ITS ---
Test Reason : CP Blood Pressure : / mmHG Vent. 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
--- NOTE | 2020-04-07 01:36 | RAD_ITS ---
STUDY: X-RAY CHEST REASON FOR EXAM: Male, 84 years old. Chest pain. TECHNIQUE: AP portable upright COMPARISON: 02/07/2015 CXR FINDINGS: No evidence of pneumonia, pulmonary edema, pneumothorax or pleural effusion. Cardiac silhouette, hilar and mediastinal contours with no acute findings. Heart size normal. Sternotomy wires again demonstrated. Atherosclerosis of the thoracic aorta. Degenerative osseous changes with no acute osseous abnormality. RAD/Chest 1 View (Portable) IMPRESSION: No acute findings. Electronically Signed: Cruz Gant, at 2:38 EDT Tel , Service support ,
[2020-04-07 01:38] VITALS: O2SAT 99
[2020-04-07 01:52] LABS: Absolute Lymphocyte Count 1.35 X10^3/uL (0.83-4.51); Absolute Neutrophil Count 6.3 X10^3/uL (2.0-7.7); Basophil# 0.07 X10^3/uL; Basophil% 0.8 % (0-1); Eosinophil# 0.16 X10^3/uL; Eosinophils% 1.8 % (0-5); Hematocrit 48.5 % (40-54); Hemoglobin 14.9 g/dL (13.0-16.5); Lymphocyte # 1.35 X10^3/ul (4.0); Lymphocyte % 15.2 % (19-41); Mean Corp Hgb Conc 30.7 g/dL (32-36); Mean Corpuscular Volume 97.6 fL (80-94); Mean Platelet Vol. 10.4 fl (6.2-12.0); Monocyte# 0.92 X10^3/uL; Monocyte% 10.3 % (0-10); NRBC Flagged by Analyzer 0 % (0-5); Neutrophil # 6.34 X10^3/uL (2.7-7.7); Neutrophil % 71.1 % (47-70); Platelet Count 216 K/mm3 (150-450); RBC Distribution Width CV 15.3 % (11.6-14.6); RBC Distribution Width SD 54.7 fl (35.1-43.9); Red Blood Count 4.97 M/mm3 (4.6-6.2); White Blood Count 8.9 K/mm3 (4.4-11.0)
[2020-04-07] MEDS: Ketorolac 30 MG/ML Syringe IV (01:58)
[2020-04-07 02:00] VITALS: BP 119/63; PULSE 69; RESP 22; O2SAT 98
[2020-04-07 02:08] LABS: Anion Gap 5 (5-15); BUN 29 mg/dL (7-18); BUN/Creat Ratio 14.3 RATIO (10-20); Calcium,Total 8.7 mg/dL (8.5-10.1); Chloride 110 mmol/L (98-107); Creatinine, Serum 2.03 mg/dL (0.70-1.30); EST Glomerular Filtration Rate 33 mL/min (>60); Est Glom Filt Rate - Afr Amer 41 mL/min (>60); Estimated Creatinine Clearance 23.98 ml/min; Glucose 120 mg/dL (74-106); Potassium 4.5 mmol/L (3.5-5.1); Sodium Level 140 mmol/L (136-145)
[2020-04-07 02:55] VITALS: BP 122/64; PULSE 66; RESP 20; O2SAT 98
== END 2020-04-07 02:56 | disposition home or self-care (01) ==
PROVIDERS: Emergency Provider Emergency Medicine; PCP Family Medicine
DX: R07.9 Chest pain, unspecified (principal); M94.0 Chondrocostal junction syndrome [Tietze]; I25.10 Atherosclerotic heart disease of native coronary artery without angina pectoris; E78.5 Hyperlipidemia, unspecified; I10 Essential (primary) hypertension; Z79.82 Long term (current) use of aspirin
CPT/HCPCS: 71045; 80048; 84484; 85025; 93005; 96374; 99285; A4216

== ENCOUNTER → 2023-06-12 | Outpatient (CLI) | payer MEDICARE, OTHER, SELFPAY ==
--- NOTE | 2023-06-12 07:18 | ECHOCS_ITS ---
Reason For Study: CAD/ASHD Procedure This was a 2D Doppler, Color Flow transthoracic echocardiogram. The study was technically difficult. Contrast injection was performed. Exam performed in department. Left Ventricle Normal LV size. Mild concentric left ventricular hypertrophy. The estimated ejection fraction is 45 %. Stage 1 diastolic dysfunction. There are regional wall motion abnormalities as specified. Mid- anteroseptal : Hypokinetic. Mid-inferoseptal : Mildly hypokinetic. Right Ventricle Normal RV size. Normal systolic function. Atria The left atrium is mildly enlarged. Normal right atrium. Mitral Valve Normal mitral valve. Tricuspid Valve Normal tricuspid valve. Aortic Valve Trisinus/trileaflet aortic valve. Mild (1+) aortic valve insufficiency. Pulmonic Valve The pulmonic valve is not well visualized. Great Vessels Mildly dilated aortic root. The pulmonary artery is normal size. Normal inferior vena cava. Pericardium/Pleural No pericardial effusion. Medication Diluted definity 2ml given slow IV push to enhance endocardial definition. MMode/2D Measurements & Calculations LVIDd: 5.8 cm IVSd: 1.3 cm Ao root diam: 4.0 cm LVIDs: 4.6 cm LVPWd: 1.2 cm FS: 21.1 % LAV(MOD-sp4): 78.6 ml LVAd ap4: 38.5 cm2 SV(MOD-sp4): 65.9 ml LVLd ap4: 8.4 cm EDV(MOD-sp4): 144.8 ml EDV(sp4-el): 150.2 ml LVAs ap4: 25.3 cm2 LVLs ap4: 6.7 cm ESV(MOD-sp4): 78.9 ml ESV(sp4-el): 81.1 ml EF(MOD-sp4): 45.5 % EF(sp4-el): 46.0 % SV(sp4-el): 69.2 ml LA A4 area: 23.1 cm2 LA dimension(2D): 5.0 cm RA A4 area: 18.2 cm2 TAPSE: 1.2 cm Time Measurements MV dec time: 0.34 sec Doppler Measurements & Calculations MV E max paulo: 67.8 cm/sec Med Peak E' Paulo: 7.6 cm/sec MV V2 max: 80.3 cm/sec MV A max paulo: 82.6 cm/sec E/E' med: 9.0 MV max P.6 mmHg MV E/A: 0.82 MV V2 mean: 41.7 cm/sec MV mean P.84 mmHg MV V2 VTI: 23.5 cm MV dec slope: 201.4 cm/sec2 Ao V2 max: 135.9 cm/sec AI max paulo: 364.8 cm/sec Ao max P.4 mmHg AI max P.3 mmHg Ao V2 mean: 84.7 cm/sec AI dec slope: 220.3 cm/sec2 Ao mean P.5 mmHg AI P1/2t: 485.0 msec Ao V2 VTI: 27.5 cm AV (velocity ratio): 0.75 LV V1 max: 82.0 cm/sec LV V1 max P.2 mmHg LV V1 mean P.1 mmHg LV V1 mean: 67.0 cm/sec LV V1 VTI: 20.7 cm ECHO/Echo Complete W/ Contrast Interpretation Summary Mildly dilated aortic root. Normal LV size. The estimated ejection fraction is 45 %. Stage 1 diastolic dysfunction. The left atrium is mildly enlarged. Mild concentric left ventricular hypertrophy. Ordering Physician: Jadon Zuniga Referring Physician: Jadon Zuniga Performed By: Kellie Grimaldo RCS
--- NOTE | 2023-06-12 13:00 | STRESSREP ---
Stress Test Report Pharmacologic myocardial perfusion stress test. 87-year-old man with a history of coronary disease. Resting EKG demonstrates sinus rhythm with a rate of 71 bpm. Left bundle branch block is noted. Resting blood pressure is 150/74 mmHg. 0.4 mg of regadenoson was infused per usual protocol followed by rapid intravenous saline flush injection. Continuous EKG monitoring was performed. The maximum heart rate was 89 bpm which was 66% of max impacted heart rate the maximum workload was 1 metabolic equivalent. At rest there were no ST or T wave changes noted to suggest ischemia and at peak infusion nonspecific ST changes were noted which did not meet the criteria for ischemia. No clinical angina is noted. The final blood pressure was 150/74 mmHg. Myocardial perfusion protocol. 14.1 mCi of technetium 99m sestamibi was injected at rest. 0.4 mg of regadenoson was infused per usual protocol. At peak infusion 43.3 mCi of technetium 99m sestamibi was injected stress images were obtained stress and rest images were reconstructed and compared in the short axis vertical long and horizontal long axis. Gated images were also obtained. Perfusion SPECT analysis: Review of the stress images demonstrate normal uptake of tracer noted in all areas of the myocardium. The resting images similar demonstrated normal uptake of tracer noted in all areas of the myocardium. No areas of reversibility are noted to suggest ischemia and no previous infarct is noted. Gated SPECT analysis: The gated ejection fraction is 52%. Conclusion: Normal pharmacologic myocardial perfusion stress test. Preserved ejection fraction.
== END | disposition home or self-care (01) ==
LOC: CVS 07:17
PROVIDERS: PCP Physician Assistant; Referring Provider Internal Medicine Cardiovascular Disease; Visit Provider Internal Medicine Cardiovascular Disease
DX: I25.10 Atherosclerotic heart disease of native coronary artery without angina pectoris (principal); Z95.1 Presence of aortocoronary bypass graft
CPT/HCPCS: 78452; 93017; 93306; A9500; Q9957; A4216; C8929; J2785

== ENCOUNTER → 2024-09-15 | Outpatient (CLI) | payer MEDICARE, OTHER, SELFPAY ==
[2024-09-15 09:06] LABS: Absolute Lymphocyte Count 1.15 X10^3/uL (0.83-4.51); Absolute Neutrophil Count 4.6 X10^3/uL (2.0-7.7); Basophil# 0.05 X10^3/uL; Basophil% 0.8 % (0-1); Eosinophil# 0.13 X10^3/uL; Hematocrit 51.6 % (40-54); Hemoglobin 16.7 g/dL (13.0-16.5); Lymphocyte # 1.15 X10^3/ul (0.83-4.51); Lymphocyte % 17.5 % (19-41); Mean Corp Hgb Conc 32.4 g/dL (32-36); Mean Corpuscular Hgb 29.9 pg (27.0-32.0); Mean Corpuscular Volume 92.5 fL (80-94); Mean Platelet Vol. 10.5 fl (6.2-12.0); Monocyte# 0.65 X10^3/uL; Monocyte% 9.9 % (0-10); NRBC Flagged by Analyzer 0.3 % (0-5); Neutrophil # 4.55 X10^3/uL (2.7-7.7); Neutrophil % 69.2 % (47-70); Platelet Count 252 K/mm3 (150-450); RBC Distribution Width CV 15.2 % (11.6-14.6); Red Blood Count 5.58 M/mm3 (4.6-6.2); White Blood Count 6.6 K/mm3 (4.4-11.0)
[2024-09-15 09:38] LABS: BNP,B-Type NATRIURETIC PEPTIDE 99.4 pg/mL (0-100)
[2024-09-15 09:45] LABS: Anion Gap 7 (5-15); BUN 20 mg/dL (7-18); BUN/Creat Ratio 14.7 RATIO (10-20); Calcium,Total 9.6 mg/dL (8.5-10.1); Chloride 106 mmol/L (98-107); Creatinine, Serum 1.36 mg/dL (0.70-1.30); EST Glomerular Filtration Rate 53 mL/min (>60); Est Glom Filt Rate - Afr Amer 64 mL/min (>60); Glucose 121 mg/dL (74-106); Sodium Level 139 mmol/L (136-145)
== END | disposition home or self-care (01) ==
PROVIDERS: PCP Physician Assistant; Referring Provider Physician Assistant Medical; Visit Provider Physician Assistant Medical
DX: I49.49 Other premature depolarization (principal); R06.02 Shortness of breath
CPT/HCPCS: 36415; 80048; 83880; 85025; 93225; 93226

== ENCOUNTER → 2025-03-10 | Outpatient (CLI) | payer MEDICARE, OTHER, SELFPAY ==
[2025-03-10 11:53] LABS: Cholesterol 148 mg/dL (<=200); High Density Lipoprotein 47 mg/dL; Low Density Lipoprotein Calc. 38 mg/dL; Triglycerides 314 mg/dL; Very Low Density Lipoprotein 63 mg/dL (5-40); cholesterol:hdl ratio screen 3.15
[2025-03-10 12:52] LABS: AST(SGOT) 34 U/L (<=37); Alanine Aminotransfer ALT/SGPT 25 U/L (<=46); Albumin, Serum 4.2 g/dL (3.4-4.8); Alkaline Phosphatase 48 U/L (40-129); Bilirubin, Direct 0.22 mg/dL (0.00-0.30); Globulin 3.2 g/dL (2.2-4.2); Protein, Total 7.4 g/dL (5.9-8.4); Total Bilirubin 0.64 mg/dL (0.00-1.30)
== END | disposition home or self-care (01) ==
PROVIDERS: PCP Physician Assistant; Referring Provider Physician Assistant Medical; Visit Provider Physician Assistant Medical
DX: E78.5 Hyperlipidemia, unspecified (principal)
CPT/HCPCS: 36415; 80061; 80076

== ENCOUNTER 2025-08-09 10:24 | Day surgery (SDC) | payer MEDICARE, OTHER, SELFPAY ==
--- NOTE | 2025-08-02 14:17 | PAT.ANESEVAL ---
Pre-Assessment Diagnosis/Proposed Procedure Planned Operative Procedure(s): (B) Hydrocelectomy Anesthesia History Anesthesia History - voice engineer: Anesthesia History - voice engineer Hx Hospitalization No 08/02/25 11:08 Any Problems With Anesthesia No 12/21/19 09:28 Cholinesterase deficiency No 08/02/25 11:08 You/Your Family Experience No 12/21/19 09:28 fever (hyperthermia) with Relationship Recent Exposure to Contagious No 12/21/19 09:28 Disease Does patient have nerve No 08/02/25 11:08 stimulator Patient instructed to have device shut off --Does patient have Pacemaker or ICD? When Was Last Pacemaker Check QUESTION #4 FULL TEXT: You/Your Family Experience fever (hyperthermia) with Anesthesia Last Oral Intake Last Oral intake: Last Oral Intake NPO since Meds taken in AM with sips of water? Meds patient instructed to take am of surgery PONV PONV - voice engineer: PONV - voice engineer Female No 08/02/25 11:08 HX of Motion Sickness No 08/02/25 11:08 HX of N/V After Surgery No 08/02/25 11:08 Non-Smoker Yes 08/02/25 11:08 Duration of Surgery greater No 08/02/25 11:08 than 60 minutes Number of Risk Factors 1 08/02/25 11:08 PONV Score Low Risk 08/02/25 11:08 Height & Weight Height & Weight: Anesthesia: Height & Weight Height 5 ft 5 in 03/10/25 07:04 Respiratory Assessment Respiratory Assessment - voice engineer: Respiratory Tract Infection Hx - voice engineer Hx Respiratory Tract Infection No 08/02/25 11:08 STOP Sleep Apnea STOP Sleep Apnea - voice engineer: STOP Sleep Apnea - voice engineer Hx Hypertension Yes: CONTROLLED WITH MED 08/02/25 11:08 Hx Sleep Apnea No 08/02/25 11:08 CPAP No 12/22/19 06:43 BIPAP No 12/21/19 09:28 Do you snore loudly (louder No 08/02/25 11:08 than talking or can be heard Do you often feel tired/ No 08/02/25 11:08 fatigued/ sleepy during daytime? Has anyone observed you stop No 08/02/25 11:08 breathing during sleep? STOP Results Negative 08/02/25 11:08 QUESTION #5 FULL TEXT : Do you snore loudly (louder than talking or can be heard through closed doors)? 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 Specify any problems Hx of Preganancy in last 3 N/A 08/02/25 11:08 Months Nurse Filling Out Transfusion NBUCHER 08/02/25 11:08 & Questions: Date: 08/02/25 08/02/25 11:08 Time: 11:09 08/02/25 11:08 Patient unable to answer at this time (ie. 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 Obesity History of colon cancer, stage II Essential (primary) hypertension Cataract (lens) fragments in eye following cataract surgery, bilateral 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) BPH (benign prostatic hyperplasia) Atherosclerosis of coronary artery of [place] heart without angina pectoris Conduction disorder of the heart Ischemic cardiomyopathy HLD (hyperlipidemia) 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) Home Medications ?Medication ?Instructions ?Recorded ?Last Taken ?Type aspirin 81 mg tablet,delayed 81 mg PO DAILY 05/13/17 05/18/17 History release 81 mg amlodipine 10 mg tablet 10 mg PO DAILY #90 tabs 03/10/25 Unknown Rx lisinopril 40 mg tablet 40 mg PO QDAY #90 tabs 03/10/25 Unknown Rx metoprolol tartrate 25 mg tablet 12.5 mg (1/2 x 25 mg) PO BID #90 03/10/25 Unknown Rx tabs simvastatin 20 mg tablet 20 mg PO QHS #90 tabs 03/10/25 Unknown Rx spironolactone 25 mg tablet 25 mg PO DAILY #90 tabs 03/10/25 Unknown Rx loratadine 10 mg tablet 10 mg PO DAILY 08/02/25 Unknown History (Allerclear) Allergy/AdvReac Type Severity Reaction Status Date / Time amoxicillin Allergy Hives Verified 08/02/25 11:07 omeprazole Allergy Hives Verified 08/02/25 11:07 Penicillins Allergy Unknown Verified 08/02/25 11:07 Sulfa (Sulfonamide Allergy Unknown Verified 08/02/25 11:07 Antibiotics) prednisone AdvReac Severe Unknown Verified 08/02/25 11:07 hydrochlorothiazide AdvReac Unknown hypokalemia Verified 08/02/25 11:07 ezetimibe (From Zetia) AdvReac Other Verified 08/02/25 11:07 Family History Father Hypertension Myocardial infarction from [place] age 74 CAD (coronary artery disease) Mother Hypertension Brother CAD (coronary artery disease) Prostate cancer Sister Heart disease Valve replacement Thyroid disorder Surgical History (Updated 08/02/25 @ 11:14 by Belkys Beckford) History of colonoscopy H/O hemorrhoidectomy History of partial colectomy (01/2015) H/O coronary artery bypass surgery (03/30/12) Social History Smoking Status: Never smoker alcohol intake: never substance use type: does not use caffeine: Yes Audit: Pertinent Findings Pertinent Findings EKG Perinent findings: 09/09/2024. Sinus rhythm, first-degree AV block. Occasional ectopic ventricular beat. Right bundle branch block with left axis/bifascicular block. Inferior infarct, age undetermined. Consult pertinent findings: Cardiology 03/10/2025. History of coronary artery bypass surgery. CABG x 4. 03/2012. Most recent stress test 06/12/2023 negative. Stable. No recent symptoms or events. Continue current medical therapy. History of ischemic cardiomyopathy. Most recent echo from 06/12/2023 EF of 45%. Appears stable at this time. Continue current medications. Hypertension. Well-controlled. Recommendation Anesthesia Recommendation Anesthesia recommendation: OPTIMIZED for anesthesia
[2025-08-09] VITALS (9 sets, daily range): BP systolic 124–147; BP diastolic 64–76; PULSE 75–96; RESP 16–18; TEMP 36.4–37; O2SAT 94–97; BMI 35.9
[2025-08-09] MEDS: Lactated Ringers 1,000 ML 15 ML IV (11:11)
--- NOTE | 2025-08-09 11:14 | EKG12_ITS ---
Test Reason : PREOP
--- NOTE | 2025-08-09 11:54 | PCM.PRE.AN2 ---
ASA Classification* ASA Classification ASA Classification: 3 (CABG x 4, HTN, hx ischemic cardiomyopathy ) Assessment & Plan Anesthesia* Anesthesia Assessment Anesthesia Assessment: Discussed sedation and/or anesthesia options, risks, benefits, and alternatives with patient/parents/legal guardian/POA. Questions invited. The patient/parents/legal guardian/POA seems to understand and agrees to proceed with anesthesia plan. Reviewed the physical assessment, medical history, allergy history and patient home medications list prior to surgery/procedure/anesthetic and documented any changes. Performed airway and anesthesia risk assessments. Anesthesia Type Anesthesia Type: General History Source History Obtained from:: Patient and Chart Anesthesia Focused Assessment* Temperature: 98.2 F Pulse Rate: 85 Blood Pressure: 141/72 Respiratory Rate: 18 Pulse Ox: 97 Oxygen Delivery Method: Room Air Airway Assessment Mouth opens: >3 cm Mallampati Score: III Teeth Condition: Intact Neck Range of motion (ROM): Full ROM Labs Anesthesia Preop lab: CBC WBC, (4.4-11.0) 6.6 K/mm3 09/15/24, 08:40 RBC, (4.6-6.2) 5.58 M/mm3 09/15/24, 08:40 Hgb, (13.0-16.5) 16.7 g/dL H 09/15/24, 08:40 Hct, (40-54) 51.6 % 09/15/24, 08:40 Plt Count, (150-450) 252 K/mm3 09/15/24, 08:40 CHEMISTRY Potassium, (3.5-5.1) 4.0 mmol/L 09/15/24, 08:40 Sodium, (136-145) 139 mmol/L 09/15/24, 08:40 Magnesium, (1.8-2.4) 2.0 mg/dL 02/15/15, 07:10 Phosphorus, (2.5-4.9) 3.2 mg/dL 02/15/15, 07:10 BUN, (7-18) 20 mg/dL H 09/15/24, 08:40 Creatinine, (0.70-1.30) 1.36 mg/dL H 09/15/24, 08:40 Glucose, (74-106) 121 mg/dL H 09/15/24, 08:40 POC Glucose, (70-110) 103 mg/dL 02/16/15, 06:48 TSH, (0.358-3.74) 1.14 uIU/mL 02/08/15, 20:35 COAG PT, (11.7-14.9) 13.4 SECONDS 02/15/15, 07:10 Pre-Assessment Diagnosis/Proposed Procedure Planned Operative Procedure(s): (B) Hydrocelectomy Anesthesia History 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 When Was Last Pacemaker Check QUESTION #4 FULL TEXT: You/Your Family Experience fever (hyperthermia) with Anesthesia Last Oral Intake Last Oral intake: Last Oral Intake NPO since 21:00 08/09/25 11:01 Meds taken in AM with sips of No 08/09/25 11:01 water? Meds patient instructed to take am of surgery PONV PONV - fur comber: PONV - fur comber Female No 08/02/25 11:08 HX of Motion Sickness No 08/02/25 11:08 HX of N/V After Surgery No 08/02/25 11:08 Non-Smoker Yes 08/02/25 11:08 Duration of Surgery greater No 08/02/25 11:08 than 60 minutes Number of Risk Factors 1 08/02/25 11:08 PONV Score Low Risk 08/02/25 11:08 Height & Weight Height & Weight: Anesthesia: Height & Weight Height 5 ft 5 in 08/09/25 11:01 Weight: 98 kg 08/09/25 11:01 Body Mass Index (BMI) 35.9 08/09/25 11:01 Respiratory Assessment Respiratory Assessment - fur comber: Respiratory Tract Infection Hx - fur comber Hx Respiratory Tract Infection No 08/02/25 11:08 STOP Sleep Apnea STOP Sleep Apnea - fur comber: STOP Sleep Apnea - fur comber Hx Hypertension Yes: CONTROLLED WITH MED 08/02/25 11:08 Hx Sleep Apnea No 08/02/25 11:08 CPAP No 12/22/19 06:43 BIPAP No 12/21/19 09:28 Do you snore loudly (louder No 08/02/25 11:08 than talking or can be heard Do you often feel tired/ No 08/02/25 11:08 fatigued/ sleepy during daytime? Has anyone observed you stop No 08/02/25 11:08 breathing during sleep? STOP Results Negative 08/02/25 11:08 QUESTION #5 FULL TEXT : Do you snore loudly (louder than talking or can be heard through closed doors)? 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 Specify any problems Hx of Preganancy in last 3 N/A 08/02/25 11:08 Months Nurse Filling Out Transfusion NBUCHER 08/02/25 11:08 & Questions: Date: 08/02/25 08/02/25 11:08 Time: 11:09 08/02/25 11:08 Patient unable to answer at this time (ie. confused, unrespo /Reproduction History /Reproductive History - fur comber: /Reproductive Hx- fur comber Hx Now No 08/02/25 11:08 Gestational Age (in weeks): EDC: Hx Hx Para Hx Section SAB No 08/02/25 11:08 Does the father of the baby or his family experience fever w Father of the baby Malignant Hypertension history comment Active Medications Active Medications: Current Medications Generic Name Dose Route Start Last Admin Trade Name Freq PRN Reason Stop Dose Admin Lactated Ringer's 1,000 mls @ 15 mls/hr 08/09/25 10:45 08/09/25 11:11 IV 15 mls/hr .Q48H MARYA Administration PFSH Medical History (Updated 08/02/25 @ 11:14 by Belkys Beckford) Wears glasses Cancer Ambulates with cane Arthritis High cholesterol History of IBS Shortness of breath on exertion Non-smoker History of edema History of Holter monitoring History of echocardiogram History of stress test Hypertension Cardiology follow-up encounter Rectal bleeding 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 Obesity History of colon cancer, stage II Essential (primary) hypertension Cataract (lens) fragments in eye following cataract surgery, bilateral 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) BPH (benign prostatic hyperplasia) 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 Ischemic cardiomyopathy HLD (hyperlipidemia) 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) Home Medications ?Medication ?Instructions ?Recorded ?Last Taken ?Type aspirin 81 mg tablet,delayed 81 mg PO DAILY 05/13/17 08/02/25 History release amlodipine 10 mg tablet 10 mg PO DAILY #90 tabs 03/10/25 08/09/25 Rx lisinopril 40 mg tablet 40 mg PO QDAY #90 tabs 03/10/25 08/08/25 Rx metoprolol tartrate 25 mg tablet 12.5 mg (1/2 x 25 mg) PO BID #90 03/10/25 08/09/25 Rx tabs simvastatin 20 mg tablet 20 mg PO QHS #90 tabs 03/10/25 08/08/25 Rx spironolactone 25 mg tablet 25 mg PO DAILY #90 tabs 03/10/25 08/08/25 Rx loratadine 10 mg tablet 10 mg PO DAILY 08/02/25 08/08/25 History (Allerclear) Allergy/AdvReac Type Severity Reaction Status Date / Time amoxicillin Allergy Hives Verified 08/09/25 10:59 omeprazole Allergy Hives Verified 08/09/25 10:59 Penicillins Allergy Unknown Verified 08/09/25 10:59 Sulfa (Sulfonamide Allergy Unknown Verified 08/09/25 10:59 Antibiotics) prednisone AdvReac Severe Unknown Verified 08/09/25 10:59 hydrochlorothiazide AdvReac Unknown hypokalemia Verified 08/09/25 10:59 ezetimibe (From Zetia) AdvReac Other Verified 08/09/25 10:59 Family History Father Hypertension Myocardial infarction from [place] age 74 CAD (coronary artery disease) Mother Hypertension Brother CAD (coronary artery disease) Prostate cancer Sister Heart disease Valve replacement Thyroid disorder Surgical History (Updated 08/02/25 @ 11:14 by Belkys Beckford) History of colonoscopy H/O hemorrhoidectomy History of partial colectomy (01/2015) 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 Physical Exam Const alert and oriented x3 Nutritional Appearance: obese Resp normal respiratory effort, normal air movement and clear to auscultation bilaterally Cardio regular rate, regular rhythm, no murmurs and diaphoretic
--- NOTE | 2025-08-09 12:59 | DCINST_ITS ---
Discharge Instructions
--- NOTE | 2025-08-09 12:59 | OP.PCM_ITS ---
Operative Report (Standard)
--- NOTE | 2025-08-09 12:59 | PCM.DC ---
Discharge Instructions DC O2, CPAP, BIPAP needs Home O2 Discharge instructions: No Dressing / Incision Discharge Activity: Return to Normal Activity and May Not Drive (while taking narcotic pain medications.) Dressing / Incision Call your doctor if you observe: Fever of 101 or Higher Follow Up Care Please Follow Up With: Gordy Rajan MD When: Call [phone] for an appointment Test Results: Test results from this visit will be discussed in further detail at your follow-up appointment, if applicable. Discharge Plan Admission Primary Reason for Your Visit: hydrocelectomy Attending Provider: Gordy Rajan Primary Care Provider: Erick Mcconnell Instructions Print Language: [place] Discharge Orders/Prescriptions Prescriptions: New ciprofloxacin HCl [Cipro] 500 mg tablet 500 mg PO BID Qty: 14 0RF oxycodone 5 mg tablet 5 mg PO Q6H PRN (Reason: pain) 7 Days Qty: 14 0RF Continued amlodipine 10 mg tablet 10 mg PO DAILY Qty: 90 3RF lisinopril 40 mg tablet 40 mg PO QDAY Qty: 90 3RF metoprolol tartrate 25 mg tablet 12.5 mg PO BID Qty: 90 3RF simvastatin 20 mg tablet 20 mg PO QHS Qty: 90 4RF spironolactone 25 mg tablet 25 mg PO DAILY Qty: 90 3RF loratadine [Allerclear] 10 mg tablet 10 mg PO DAILY Held aspirin 81 MG tablet,delayed release (DR/EC) 81 mg PO DAILY Hold Instructions: Resume on 08/17/25. Referrals / Follow Up: Erick Mcconnell MD [Primary Care Provider, Medical] Disposition Disposition (needs filled in before D/C Order can be placed): Home, Self Care
--- NOTE | 2025-08-09 12:59 | PCM.OPRPT ---
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 We discussed in the preoperative setting what to expect with the surgery. We discussed the expected results with surgery. He understands with removal of a hydrocele there is a risk of bleeding, infection, hematoma formation, abscess formation, recurrence of hydrocele, pain and swelling. He will be given postoperative antibiotics and anti-inflammatories he was given instructions for no heavy lifting or heavy activity. And to wear tight supportive underwear and ice to scrotum as necessary for swelling. After discussion with the patient and review of the risk and benefits were to proceed with a hydrocelectomy. Patient was taken back to the operating room, he was placed supine on the operating room table, a timeout procedure was performed and the patient was identified in the side of the surgery was marked and confirmed by the operating room staff. Patient then underwent general anesthesia by the anesthesiology team. Once general anesthesia was secured then to the scrotum penis area was shaved prepped and draped in usual sterile fashion. On inspection he could see palpate the hydrocele that was quite large on the both side. The hydrocele was about 5 centimeters in size. I then made a small incision over the hydrocele sac infiltrated the skin with Marcaine. I then made a small incision over the hydrocele sac dissected down to the hydrocele sac itself and then infiltrated the sac with lidocaine. The hydrocele sac was then grabbed with Allis clamps on both sides and drained and then through the small incision the testicle and hydrocele sac was delivered. Then using electrocautery and pinpoint dissection I removed the hydrocele sac from the testicle. We then used electrocautery and pinpoint electrocautery and suture ligation to control and get perfect hemostasis to stop all bleeding from around the testicle. The testicle itself was identified the vas deferens of the testicle the spermatic cord. There is no injury to the spermatic cord during the dissection section. After the hydrocele sac was excised I then created a dartos space in the scrotum and the testicle was placed back in the ductal space sac. Same procedure repeated on the other side. We made sure that there was good hemostasis. We then closed over the testicle in 2 layers closing the dartos layer and then the subcutaneous layer and then the skin layer with subcuticular stitches. All sponges and needles were accounted for patient's anesthetic was reversed and he was taken back to the PACU in stable condition and with tight supportive scrotal support. Surgical Findings: Both hydroceles removed drain placed Complications Complications: No Admit VTE Documentation VTE Present on Admission: No VTE Mechan Device Prophylaxis: SCD's VTE Pharm Prophylaxis ordered?: No
--- NOTE | 2025-08-09 13:19 | POSTOP.ANE_ITS ---
Anesthesia: Postop Eval I
--- NOTE | 2025-08-09 13:19 | PCM.POST.ANE ---
Anesthesia: Postop Eval I Current Vital Signs Temperature: 98.6 F Pulse Rate: 89 Blood Pressure: 140/73 Respiratory Rate: 16 Pulse Ox: 95 Oxygen Delivery Method: Room Air Assessment Airway patent: Yes Spontaneous unlabored respirations: Yes Mental status: Awake and Calm nausea: No Vomiting: No Anesthesia Complication: No Fluid Hydration Crystalloid volume administer (ml): 500 Total IV fluid infused: 500 Progress Note Anesthesia document: Postop Eval 1 completed: Yes
--- NOTE | 2025-08-09 14:24 | POSTOPAN2_ITS ---
Anesthesia Postop Eval I Sum
--- NOTE | 2025-08-09 14:24 | PCM.POSTANE2 ---
Anesthesia Postop Eval I Sum Postop Eval Completion status Anesthesia document: Postop Eval 1 completed: Yes Anesthesia Postop Eval I Summary Anesthesia Postop Eval I Summary: Anesthesia Postop Eval I: Assessment Summary Airway patent Yes 08/09/25 13:20 [email or web address] Spontaneous unlabored Yes 08/09/25 13:20 [email or web address] respirations Mental status Awake,Calm 08/09/25 13:20 [email or web address] nausea No 08/09/25 13:20 [email or web address] Vomiting No 08/09/25 13:20 [email or web address] Anesthesia Postop Eval I: Fluid Summary Crystalloid volume administer 500 08/09/25 13:20 [email or web address] (ml) Colloids volume administered ( ml) Blood Product volume administered (ml) Total IV fluid infused 500 08/09/25 13:20 [email or web address] Anesthesia Postop Eval I: Summary Notes Anesthesia Complication No 08/09/25 13:20 [email or web address] Anesthesia Complication Comment: Post-operative progress note Anesthesia: Postop Eval II Evaluation Mental status: Awake Pain Level: 0 nausea: No Vomiting: No Complications Anesthesia Complication: No
== END 2025-08-09 14:52 | disposition home or self-care (01) ==
LOC: SDC 10:25 → AC 10:28
PROVIDERS: PCP Family Medicine; Referring Provider Urology; Visit Provider Urology
PROC: (CPT 55041; principal; 2025-08-09 12:30)
DX: N43.0 Encysted hydrocele (principal); Z79.82 Long term (current) use of aspirin; Z79.899 Other long term (current) drug therapy; I10 Essential (primary) hypertension; Z95.5 Presence of coronary angioplasty implant and graft; I44.0 Atrioventricular block, first degree; I25.10 Atherosclerotic heart disease of native coronary artery without angina pectoris; I45.10 Unspecified right bundle-branch block; E78.00 Pure hypercholesterolemia, unspecified
CPT/HCPCS: 55041; 00920; 93005; J2405